=== PATIENT | male | born 2000 | race Caucasian/White ===

== ENCOUNTER 2020-12-17 14:19 | Inpatient (IN) | payer OTHER, SELFPAY ==
--- NOTE | ~2020-12-17 | CT_ITS ---
EXAMINATION: CT HEAD WITHOUT CONTRAST CLINICAL INFORMATION: Anxiety COMPARISON: None TECHNIQUE: Contiguous axial imaging was performed from the skull base to vertex without intravenous administration of contrast. This CT examination was performed using dose optimization techniques as appropriate, variously including the following: *Automated exposure control *Adjustment of mA and/or kV according to patient size (this includes techniques or standardized protocols for targeted exams where dose is matched to indication/reason for exam; i.e. extremities or head) *Use of iterative reconstruction technique DLP: 1035 mGy-cm FINDINGS: There is no evidence of acute intracranial hemorrhage or territorial infarction. No abnormal mass effect or midline shift is seen. Roberts to white matter differentiation is well preserved. No extra-axial fluid collections are identified. The ventricles are normal in size. There is no abnormal attenuation within the brain parenchyma. The osseous structures and soft tissues are normal. There is mucosal thickening seen within the right sphenoid sinus and ethmoid sinuses. CT/CT head/brain wo con IMPRESSION: No acute intracranial pathology. Sphenoid and ethmoid sinus disease.
[2020-12-17 14:21] VITALS: BP 138/83; PULSE 85; RESP 16; TEMP 36.6; O2SAT 95; BMI 22.8
--- NOTE | 2020-12-17 14:33 | ED_ITS ---
HPI - Anxiety General Chief Complaint: Anxiety Stated Complaint: anxiety Time Seen by Provider: 12/17/20 14:31 Source: patient Mode of arrival: ambulatory Limitations: no limitations History of Present Illness MD complaint: anxiety Onset (ago): week(s) (2) Symptoms: other (racing thoughts, can't sleep, I'm good. I'm good. I just need a job and my family. ) Severity: severe Quality: worsening Place: home History of similar episodes: No Provoking factors: emotional stress and work/job stress Relieving factors: nothing Exacerbating factors: thinking about event Associated symptoms: other (states he thinks about everything and can't stop, but he's okay, no SI) Related Data Allergies Allergy/AdvReac Type Severity Reaction Status Date / Time No Known Allergies Allergy Unverified 01/09/20 17:01 Review of Systems Review of Systems: Constitutional : No Fever, No Chills ENT/Mouth : No Ear Pain, No Nasal Congestion, No sore throat Eyes: No Eye Pain, No Swelling, No Redness Cardiovascular : No Chest Pain, No SOB Respiratory : No Cough, No Sputum, No Dyspnea Gastrointestinal : No Nausea, No Vomiting, No Diarrhea, No Hematochezia, No Melena Genitourinary : No Dysuria, No Urinary Frequency, No Hematuria Musculoskeletal : No Myalgias Skin : No Skin Lesions, No rash Neuro : No Weakness, No Numbness, No Paresthesias, No Dizziness, No Headache Psych : positive Anxiety, no Depression, no SI/HI, no AH/VH Heme/Lymph: No Lymphadenopathy Endocrine : No Polyuria, No Polydipsia All other systems reviewed and are negative [facility] Past Medical History Attestation statement: The following information was validated with the patient. Medical History Anxiety Social History Social History (Updated 12/17/20 @ 14:48 by Amairani Thompson DO) Patient Tobacco Use Status: Never used Tobacco Use of substances other than those prescribed or required for medical reasons: No Advance Directives: No Advance Directives Information Provided: No Physical Exam Vital Signs: Vital Signs: Last Vital Signs Temp 97.8 F 12/17/20 14:21 Pulse 85 12/17/20 14:21 Resp 16 12/17/20 14:21 BP 138/83 12/17/20 14:21 Pulse Ox 95 12/17/20 14:21 Body Mass Index 22.8 Appearance: Alert. Oriented X3. Very anxious, mild acute distress, being somewhat held and hugged in place by mom so he doesn't pace around. Eyes: Pupils equal, round and reactive to light. ENT: Pharynx normal. Neck: Normal inspection. Neck supple. CVS: Normal heart rate and rhythm. Pulses normal. Respiratory: No respiratory distress. Breath sounds normal. Abdomen: Soft and non-tender. Skin: Skin warm and dry. Normal skin color. Normal skin turgor. Extremities: No lower extremity edema. No calf ttp Neuro: Oriented X 3. No motor deficit. No sensory deficit. CN2-12 intact Psych: pos anxiety, no SI/HI, hyperverbal, pacing, rapid speech rapid thoughts Course Course Course Narrative: signed out pending N consult now states that he tested positive for COVID a week ago initially he stated it was a while ago and he planned to get a COVID vaccine on the . no hypoxia, no respiratory complaints, afebrile, no meningitis type complaints MDM - Anxiety MDM Narrative Medical decision making narrative: 20 yo male with hx of anxiety but no treatments comes in with worsening anxiety, not sleeping, he is hyperverbal and pacing I think he is possibly having intrusive as well I am not sure what's going on. labs, PO ativan, BHN consult, he does not have SI or HI - I do not feel I can section him at this time. Lab Data Result diagrams: 12/17/20 15:06 12/17/20 15:06 Labs: Lab Results 12/17/20 12/17/20 12/17/20 Range/Units 15:06 15:06 15:06 WBC 5.1 (4.8-10.8) X10*3/uL RBC 4.89 (4.60-5.80) X10*6/uL Hgb 14.3 (14.0-18.0) g/dl Hct 43.0 (42-52) % MCV 87.9 (80-98) fL MCH 29.2 (27.0-33.0) pg MCHC 33.3 (31.0-36.0) g/dl RDW 13.2 (11.0-16.0) % Plt Count 269 (160-400) X10*3/uL MPV 10.2 (9.4-12.4) fL Immature Gran % (Auto) 0.2 (0.0-0.4) % Neut % (Auto) 60.1 (45-73) % Lymph % (Auto) 29.8 (20-40) % [place] % (Auto) 9.1 (2-11) % Eos % (Auto) 0.4 (0-4) % Baso % (Auto) 0.4 (0-2) % Lymph # (Auto) 1.5 (1.2-4.9) X10*3/uL [place] # (Auto) 0.5 (0.1-1.2) X10*3/uL Eos # (Auto) 0.0 (0.0-0.4) X10*3/uL Baso # (Auto) 0.0 (0.0-0.2) X10*3/uL Abs Immat Gran (auto) 0.01 (0.00-0.03) X10*3/uL Absolute Neuts (auto) 3.1 (2.0-8.3) X10*3/uL Absolute Nucleated RBC 0.000 (0.0-0.012) X10*3/uL Nucleated RBC % (auto) 0.0 (0.0-0.2) /100WBC Sodium 139 (135-145) mmol/L Potassium 4.3 (3.3-5.1) mmol/L Chloride 106 (96-108) mmol/L Carbon Dioxide 26 (22-29) mmol/L Anion Gap 11 L (12-20) BUN 11 (9-16) mg/dL Creatinine 1.14 (0.5-1.4) mg/dL Estim Creat Clear Calc 99.4 Estimated GFR > 60 Random Glucose 108 (60-115) mg/dL Calcium 9.7 (8.4-10.2) mg/dL Total Bilirubin 1.3 H (0.0-1.0) mg/dL Direct Bilirubin 0.5 (0.0-0.5) mg/dL AST 38 H (5-37) U/L ALT 46 H (0-40) U/L Alkaline Phosphatase 80 (39-117) U/L Total Protein 8.2 H (6.5-8.0) g/dL Albumin 4.5 (3.5-5.0) g/dL Urine Opiates Screen (Not Detect) Urine Fentanyl Screen (Not Detect) Ur Barbiturates Screen (Not Detect) Ur Phencyclidine Scrn (Not Detect) Ur Amphetamines Screen (Not Detect) U Benzodiazepines Scrn (Not Detect) Urine Cocaine Screen (Not Detect) U Marijuana (THC) Screen (Not Detect) Ethyl Alcohol mg/dL COVID-19 (RUTHY) Positive A (Negative) COVID-19 Clin Com See Note 12/17/20 12/17/20 Range/Units 15:06 15:08 WBC (4.8-10.8) X10*3/uL RBC (4.60-5.80) X10*6/uL Hgb (14.0-18.0) g/dl Hct (42-52) % MCV (80-98) fL MCH (27.0-33.0) pg MCHC (31.0-36.0) g/dl RDW (11.0-16.0) % Plt Count (160-400) X10*3/uL MPV (9.4-12.4) fL Immature Gran % (Auto) (0.0-0.4) % Neut % (Auto) (45-73) % Lymph % (Auto) (20-40) % [place] % (Auto) (2-11) % Eos % (Auto) (0-4) % Baso % (Auto) (0-2) % Lymph # (Auto) (1.2-4.9) X10*3/uL [place] # (Auto) (0.1-1.2) X10*3/uL Eos # (Auto) (0.0-0.4) X10*3/uL Baso # (Auto) (0.0-0.2) X10*3/uL Abs Immat Gran (auto) (0.00-0.03) X10*3/uL Absolute Neuts (auto) (2.0-8.3) X10*3/uL Absolute Nucleated RBC (0.0-0.012) X10*3/uL Nucleated RBC % (auto) (0.0-0.2) /100WBC Sodium (135-145) mmol/L Potassium (3.3-5.1) mmol/L Chloride (96-108) mmol/L Carbon Dioxide (22-29) mmol/L Anion Gap (12-20) BUN (9-16) mg/dL Creatinine (0.5-1.4) mg/dL Estim Creat Clear Calc Estimated GFR Random Glucose (60-115) mg/dL Calcium (8.4-10.2) mg/dL Total Bilirubin (0.0-1.0) mg/dL Direct Bilirubin (0.0-0.5) mg/dL AST (5-37) U/L ALT (0-40) U/L Alkaline Phosphatase (39-117) U/L Total Protein (6.5-8.0) g/dL Albumin (3.5-5.0) g/dL Urine Opiates Screen Not Detected (Not Detect) Urine Fentanyl Screen Not Detected (Not Detect) Ur Barbiturates Screen Not Detected (Not Detect) Ur Phencyclidine Scrn Not Detected (Not Detect) Ur Amphetamines Screen Not Detected (Not Detect) U Benzodiazepines Scrn Not Detected (Not Detect) Urine Cocaine Screen Not Detected (Not Detect) U Marijuana (THC) Screen Not Detected (Not Detect) Ethyl Alcohol < 10 mg/dL COVID-19 (RUTHY) (Negative) COVID-19 Clin Com Discharge Plan Discharge Clinical Impression: Acute anxiety, COVID-19
[2020-12-17] MEDS: LORazepam 1 MG TABLET PO (15:03)
[2020-12-17 15:13] LABS: MANUAL DIFF FLAG NO
[2020-12-17 15:15] LABS: Basophils Percent Auto 0.4 % (0-2); Eosinophils Percent Auto 0.4 % (0-4); Hemoglobin 14.3 g/dl (14.0-18.0); Imm Gran Abs Auto 0.01 X10*3/uL (0.00-0.03); Imm Gran Pct Auto 0.2 % (0.0-0.4); Lymphocytes Absolute Auto 1.5 X10*3/uL (1.2-4.9); Lymphocytes Percent Auto 29.8 % (20-40); Mean Corpuscular HGB Conc 33.3 g/dl (31.0-36.0); Mean Corpuscular Hemoglobin 29.2 pg (27.0-33.0); Mean Corpuscular Volume 87.9 fL (80-98); Mean Platelet Volume 10.2 fL (9.4-12.4); Monocytes Absolute Auto 0.5 X10*3/uL (0.1-1.2); Monocytes Percent Auto 9.1 % (2-11); Neutrophils Absolute Auto 3.1 X10*3/uL (2.0-8.3); Neutrophils Percent Auto 60.1 % (45-73); Platelet Count 269 X10*3/uL (160-400); Red Blood Count 4.89 X10*6/uL (4.60-5.80); Red Cell Distribution Width 13.2 % (11.0-16.0); White Blood Count 5.1 X10*3/uL (4.8-10.8)
[2020-12-17 15:29] LABS: COVID-19 Test Positive (Negative)
[2020-12-17 15:33] LABS: Ethanol < 10 mg/dL
[2020-12-17 15:35] LABS: Alanine Aminotransferase 46 U/L (0-40); Albumin Level 4.5 g/dL (3.5-5.0); Alkaline Phosphatase 80 U/L (39-117); Anion Gap 11 (12-20); Aspartate Amino Transferase 38 U/L (5-37); Bilirubin Direct 0.5 mg/dL (0.0-0.5); Bilirubin Total 1.3 mg/dL (0.0-1.0); Blood Urea Nitrogen 11 mg/dL (9-16); Calcium 9.7 mg/dL (8.4-10.2); Carbon Dioxide 26 mmol/L (22-29); Chloride 106 mmol/L (96-108); Creatinine Clr Calc Pharmacy 99.4; Estimated Glomerular Filt Rate > 60; Glucose Random 108 mg/dL (60-115); Potassium 4.3 mmol/L (3.3-5.1); Sodium 139 mmol/L (135-145); Total Protein 8.2 g/dL (6.5-8.0)
[2020-12-17 15:35] LABS: Amphetamine Screen Urine Not Detected (Not Detect); Barbiturates, Urine Not Detected (Not Detect); Benzodiazepines Screen Urine Not Detected (Not Detect); Cannabinoid Screen Urine Not Detected (Not Detect); Cocaine Screen Urine Not Detected (Not Detect); Fentanyl, urine Not Detected (Not Detect); Opiate Screen Urine Not Detected (Not Detect); Phencyclidine Screen Urine Not Detected (Not Detect)
--- NOTE | 2020-12-17 15:52 | PC.NURSE ---
Care team approached this RN stating that given his age, he would require BHN consult rather than Care team eval. This RN sent over online referral to N regarding evaluation. Provider made aware. Patient moved to covid/isolation room with 1:1 sitter.
[2020-12-17 15:55] LABS: TSH reflex Free T4 1.12 uIU/mL (0.32-4.0)
[2020-12-17 15:57] VITALS: BP 140/70; PULSE 70; TEMP 36.6; O2SAT 98
--- NOTE | 2020-12-17 15:58 | PC.NURSE ---
This Rn encountered patient on 19H, resting quietly with Mom. 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 Looks to Mom for reassurance on minor things. Was able to answer questions about SI and denies it but states that he's been alone with his thoughts Pt is slightly unsteady on feet but able to ambulate. Required minimal assistance to change into BH clothing. Was calm and cooperative during changeover. Mom has left to quarantine at home. Mom wants updates via phone [phone]
[2020-12-17 17:34] VITALS: BP 107/60; PULSE 75; RESP 16; O2SAT 96
--- NOTE | 2020-12-17 17:55 | PC.NURSE ---
patient ate 100% of his dinner, has no complaints at this time, is visualized ambulating around room but allows tech to obtain vital signs without difficulty. patient awaiting BHN consult.
--- NOTE | 2020-12-17 19:04 | PC.NURSE ---
This RN spoke to Bakari at [facility] who states clinician should be there within a few hours.
[2020-12-17 19:24] VITALS: BP 135/86; PULSE 87; RESP 17; TEMP 37.2; O2SAT 97
--- NOTE | 2020-12-17 19:25 | PC.NURSE ---
This rn to bedside, pt sitting on stretcher in NAD, breathing with ease on RA. Pt tearful, aaox4 with directed communication but in conversation pt's line of thought appears to be tangential. Pt reports fear of being perceived as crazy. Pt reports I don't want to end up being in a crazy hospital and I feel like that's what's going to happen. Pt states I felt today that it was a clean slate and I could be happy but then my family was looking at me concerned because my head is hot and I'm overthinking. Pt states I was playing single player video games and felt like I was multiple people and that's what caused this to happen. It was the shooting video games. Pt denies SI/HI. Pt repeatedly apologizing for his behavior. This RN and sitter at bedside ensure pt he does not need to apologize. Pt stretcher in low locked position, rails raised, call kerr within reach. Sitter remains at bedside. Pt awaiting N consult. This rn confirmed with Dr Reynolds that pt is not section 12 at this time.
--- NOTE | 2020-12-17 20:46 | PC.NURSE ---
This RN to bedside. Pt reports feeling calmer now as compared to this RN's initial meeting of pt. Pt states the TV is helping me, it's telling me very important messages right now. This RN had provided pt with crayons and coloring books and blank papers. Pt reports this is helpful, thanks. Pt's mother, Gillian, called for update. This RN informed pt's mother that pt continues to await [facility] evaluation.
--- NOTE | 2020-12-17 20:57 | PC.NURSE ---
Pt informs this RN that he takes OTC vitamins because he likes to be healthy and because I like them but denies RX meds. Pt's mother confirms this.
--- NOTE | 2020-12-17 20:58 | PC.NURSE ---
Pt's mother, Gillian, phone [phone]
--- NOTE | 2020-12-17 21:43 | PC.NURSE ---
This RN spoke to Kristin at [facility] who states we are looking at the overnight, probably after 11pm for ETA
[2020-12-17 22:19] VITALS: BP 145/87; PULSE 75; RESP 17; TEMP 37; O2SAT 100
[2020-12-17 23:59] VITALS: BP 125/95; PULSE 79; RESP 17; O2SAT 99
--- NOTE | 2020-12-18 02:37 | MHC.CARE ---
FERNANDO Trinidad is here to assess pt. Contacting mother at this time. Will await disposition.
--- NOTE | 2020-12-18 03:08 | PC.NURSE ---
CHRISN to speak with pt at this time
[2020-12-18 04:06] VITALS: BP 146/88; PULSE 67; RESP 18; TEMP 37.1; O2SAT 98
[2020-12-18] MEDS: OLANZapine 5 MG TABLET PO (04:07)
[2020-12-18] MEDS: LORazepam 0.5 MG TABLET PO ×2 (04:07→15:07)
--- NOTE | 2020-12-18 04:18 | PC.NURSE ---
Pt requesting medication for anxiety. Dr Colindres made aware. This RN to bedside to medicate per MAR. Pt speaking between whispers and normal volume, saying I'm whispering because I'm scaring myself. I looked at myself and I will control my mind. I don't want to be a popper head. That's why I know what I am taking. Pt reassured that he is safe. Pt redirected to bed, covered with blankets per request. Sitter remains in place. Per Amos at [facility], pt is inpatient bed search on Section 12.
[2020-12-18 07:20] VITALS: BP 127/73; PULSE 79; RESP 16; O2SAT 96
[2020-12-18 11:38] VITALS: RESP 16
--- NOTE | 2020-12-18 14:10 | MHC.IC ---
Call placed to [facility], received call back from Oscar Gallegos who confirmed that the Patient tested positive for COVID on 12/03/20 at the [facility].
--- NOTE | 2020-12-18 14:19 | MHC.IC ---
Addendum: Oscar Gallegos is an City Routeman with the [facility].
--- NOTE | 2020-12-18 14:29 | PC.NURSE ---
Received confirmation from Elisabet Sanchez, salad maker that she verified with Oscar Gallegos, [employer] Dual Rate Supervisor, that Nikhil Mcconnell's initial positive COVID swab was collected 12/03/20 at the [facility]. Reviewed with Dr. Brayan Melton and Elisabet Sanchez and given pt asymptomatic and outside of quarantine period, may be [facility] without need for isolation. Pt should wear mask per patient standard.
--- NOTE | 2020-12-18 14:38 | PC.NURSE ---
MOTHER CALLED AND UPDATED THAT PATIENT WILL BE ADMITTED TO [facility] M[facility].
--- NOTE | 2020-12-18 15:15 | PC.NURSE ---
report taken from landon hancock pt finished shower, appears to have racing thought process, verbalizing to this rn. given ativan for anxiety. tolerating po w/o issue.
[2020-12-18 18:59] VITALS: BP 130/77; PULSE 62; RESP 17; TEMP 36.7; O2SAT 99
--- NOTE | 2020-12-18 19:00 | PC.ADMIT ---
PT admitted to M3 from [facility] on a conditional voluntary at 1820. Pt reports he is here for anxiety, states that he had a panic attack and was afraid of himself. Pt denies SI/HI/AVH. Pt states he was afraid of himself but never had thoughts of harming himself. PT had a recent break-up and has had poor sleep for the past 2 weeks. PT tested positive for Covid around this time, has been asymptomatic. Pt is hyperverbal with rapid speech, poor insight and poor impulse control. PT tox screen was negative. 15 minute checks initiated.
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
[2020-12-18] MEDS: OLANZapine 10 MG TABLET PO (20:51)
[2020-12-18 21:58] VITALS: BP 135/96; PULSE 73; TEMP 36.8
[2020-12-19] MEDS: hydrOXYzine HCL 25 MG TABLET PO (04:46)
[2020-12-19 06:00] VITALS: BP 132/68; PULSE 72; RESP 16; TEMP 36.9; O2SAT 98
[2020-12-19 07:27] LABS: Cholesterol 111 mg/dL; HDL Cholesterol 43 mg/dL; LDL Cholesterol Calculated 56 mg/dl; Magnesium 2.1 mg/dL (1.6-2.6); Triglycerides 61 mg/dL
[2020-12-19 07:49] LABS: Free T4 (Free Thyroxine) 1.38 ng/dL (0.71-1.85); Thyroid Stimulating Hormone 1.06 uIU/mL (0.32-4.0)
[2020-12-19 07:52] LABS: Estimated Average Glucose 97 mg/dL
--- NOTE | 2020-12-19 17:04 | HO.PSYCHPN ---
Subjective Subjective Date of Service: 12/19/20 Reason For Visit: anxiety Subjective Notes: Conditional Voluntary Guardianship: No Interim History: Patient with racing thoughts agitation flight of ideas emotional dysregulation Medication Compliance: Intermittent Mental Status Exam Mental Status Exam Narrative: A&O. In hospital gown, thin body habitus, good hygiene, glasses. Intermittent eye contact, inattentive. No Tics or Tremors. No abnormal involuntary movements. Agitated, labile, difficult to engage in meaningful conversation. At times pressured speech, spontaneous, has paucity of speech, abnormal prosody, no dysarthria. Mood is scared,? affect is labile. Denies SI/SIB/HI upon inquiry. Endorses AH, denies VH. Endorses delusional thought content, ideations of reference, depersonalization. Thoughts are illogical, tangential, disorganized. No known cognitive or memory impairment but appears to be having impaired processing. Insight/ Judgment limited labile . Diagnostics Vital Signs (24Hr): Vital Signs - 24 hr 12/18/20 18:59 12/18/20 21:58 12/19/20 06:00 Temperature 98.0 F 98.3 F 98.4 F Pulse Rate 62 73 72 Respiratory Rate 17 16 Blood Pressure 130/77 135/96 H 132/68 Pulse Oximetry 99 98 Body Mass Index 22.8 Labs Results: 12/17/20 15:06 12/17/20 15:06 Labs: Laboratory Results - last 48 hr 12/19/20 12/19/20 06:46 06:46 Estimat Average Glucose 97 Hemoglobin A1c % 5.0 Magnesium 2.1 Triglycerides 61 Cholesterol 111 LDL Cholesterol, Calc 56 HDL Cholesterol 43 TSH 1.06 Free T4 1.38 Imaging Radiology Impressions: ITS Impressions Head CT 12/17/20 15:50 IMPRESSION: No acute intracranial pathology. Sphenoid and ethmoid sinus disease. Medications Medications Current Medications Generic Name Dose Route Start Last Admin Trade Name Freq PRN Reason Stop Dose Admin Acetaminophen 650 mg 12/18/20 17:27 Acetaminophen 325 Mg Tablet PO Q6H PRN Headache/Pain Mild Scale (1-3) Al Hydroxide/Mg Hydroxide 30 ml 12/18/20 17:27 Magnesium Hydrox/Alum Hydrox 30 Ml Oral.Susp PO Q6H PRN Heartburn/Nausea Hydroxyzine HCl 25 mg 12/18/20 17:27 12/19/20 04:46 Hydroxyzine Hcl 25 Mg Tablet PO 25 mg BEDTIME PRN Administration Anxiety Lorazepam 1 mg 12/18/20 17:34 Lorazepam 1 Mg Tablet PO Q4H PRN Anxiety Magnesium Hydroxide 30 ml 12/18/20 17:27 Milk Of Magnesia 30 Ml Oral.Susp PO DAILY PRN Constipation Olanzapine 10 mg 12/18/20 21:00 12/18/20 20:51 Olanzapine 10 Mg Tablet PO 10 mg BEDTIME BARNEY Administration Trazodone HCl 50 mg 12/18/20 17:27 Trazodone Hcl 50 Mg Tablet PO BEDTIME PRN Insomnia Allergies Allergies Allergy/AdvReac Type Severity Reaction Status Date / Time No Known Allergies Allergy Verified 12/17/20 19:16 Assessment & Plan Assessment & Plan (1) Psychosis: Status: Acute Code(s): F29 - Unspecified psychosis not due to a substance or known physiological condition (2) Anxiety disorder, unspecified: Status: Acute Code(s): F41.9 - Anxiety disorder, unspecified Assessment and Plan: Probable manic psychosis question post COVID syndrome Plan: 1. start olanzapine 10 mg QHS to target sx of psychosis. He took 5 mg in the ED and reported positive effect, denied adverse events. 2. continue ativan 1 mg Q4H PRN for anxiety, panic sx. This was started in the ED with good effect. 3. Monitor response to medications. Monitor for safety in the milieu. Olanzapine 5 b.i.d. p.r.n. added patient appears to be floridly manic denies any history of psychosis or mood lability Greater than 50% of the session was spent on counseling and/or coordination of care Reason for contiued inpatient stay Substantial Risk for: harm to self, inability to function and rapid decompensation
[2020-12-19] MEDS: LORazepam 1 MG TABLET PO ×2 (17:31→21:56)
[2020-12-19] MEDS: OLANZapine 5 MG TABLET PO (17:45)
[2020-12-19 21:17] VITALS: BP 136/73; PULSE 108; RESP 16; TEMP 36.6; O2SAT 96
[2020-12-19] MEDS: OLANZapine 10 MG TABLET PO (21:22)
[2020-12-20 06:00] VITALS: BP 153/85; PULSE 100; RESP 16; TEMP 36.6; O2SAT 100
[2020-12-20] MEDS: OLANZapine 5 MG TABLET PO (08:42)
[2020-12-20] MEDS: LORazepam 1 MG TABLET PO (08:42)
[2020-12-20] MEDS: OLANZapine 10 MG TABLET PO (20:22)
[2020-12-20 20:24] VITALS: BP 157/90; PULSE 88; TEMP 37; O2SAT 96
--- NOTE | 2020-12-20 23:05 | HO.PSYCHPN ---
Subjective Subjective Date of Service: 12/20/20 Reason For Visit: anxiety Subjective Notes: Conditional Voluntary Interim History: pt euphoric grandiose racing thoughts speech agitated limited ability to take in info no reported hx of siri Medication Compliance: Yes Attending Groups: Intermittent Mental Status Exam Mental Status Exam Narrative: pt physically agitated pacing yelling racing thoughts grandiose I can do it all on my own paranoid ideation no si Diagnostics Vital Signs (24Hr): Vital Signs - 24 hr 12/20/20 06:00 12/20/20 20:24 Temperature 97.9 F 98.6 F Pulse Rate 100 88 Respiratory Rate 16 Blood Pressure 153/85 H 157/90 H Pulse Oximetry 100 96 Body Mass Index 22.8 Labs Results: 12/17/20 15:06 12/17/20 15:06 Labs: Laboratory Results - last 48 hr 12/19/20 12/19/20 06:46 06:46 Estimat Average Glucose 97 Hemoglobin A1c % 5.0 Magnesium 2.1 Triglycerides 61 Cholesterol 111 LDL Cholesterol, Calc 56 HDL Cholesterol 43 TSH 1.06 Free T4 1.38 Imaging Radiology Impressions: ITS Impressions Head CT 12/17/20 15:50 IMPRESSION: No acute intracranial pathology. Sphenoid and ethmoid sinus disease. Medications Medications Current Medications Generic Name Dose Route Start Last Admin Trade Name Freq PRN Reason Stop Dose Admin Acetaminophen 650 mg 12/18/20 17:27 Acetaminophen 325 Mg Tablet PO Q6H PRN Headache/Pain Mild Scale (1-3) Al Hydroxide/Mg Hydroxide 30 ml 12/18/20 17:27 Magnesium Hydrox/Alum Hydrox 30 Ml Oral.Susp PO Q6H PRN Heartburn/Nausea Hydroxyzine HCl 25 mg 12/18/20 17:27 12/19/20 04:46 Hydroxyzine Hcl 25 Mg Tablet PO 25 mg BEDTIME PRN Administration Anxiety Lorazepam 1 mg 12/18/20 17:34 12/20/20 08:42 Lorazepam 1 Mg Tablet PO 1 mg Q4H PRN Administration Anxiety Magnesium Hydroxide 30 ml 12/18/20 17:27 Milk Of Magnesia 30 Ml Oral.Susp PO DAILY PRN Constipation Olanzapine 10 mg 12/18/20 21:00 12/20/20 20:22 Olanzapine 10 Mg Tablet PO 10 mg BEDTIME BARNEY Administration Olanzapine 5 mg 12/19/20 17:38 12/20/20 08:42 Olanzapine 5 Mg Tablet PO 5 mg BID PRN Administration Psychosis Trazodone HCl 50 mg 12/18/20 17:27 Trazodone Hcl 50 Mg Tablet PO BEDTIME PRN Insomnia Allergies Allergies Allergy/AdvReac Type Severity Reaction Status Date / Time No Known Allergies Allergy Verified 12/17/20 19:16 Assessment & Plan Assessment & Plan (1) Psychosis: Status: Acute Code(s): F29 - Unspecified psychosis not due to a substance or known physiological condition (2) Anxiety disorder, unspecified: Status: Acute Code(s): F41.9 - Anxiety disorder, unspecified Assessment and Plan: Probable manic psychosis question post COVID syndrome Plan: 1. start olanzapine 10 mg QHS to target sx of psychosis. He took 5 mg in the ED and reported positive effect, denied adverse events. 2. continue ativan 1 mg Q4H PRN for anxiety, panic sx. This was started in the ED with good effect. 3. Monitor response to medications. Monitor for safety in the milieu. Olanzapine 5 b.i.d. p.r.n. added patient appears to be floridly manic denies any history of psychosis or mood lability given education regardingf bipolar dx Greater than 50% of the session was spent on counseling and/or coordination of care Reason for contiued inpatient stay Substantial Risk for: inability to function and rapid decompensation
[2020-12-21] MEDS: LORazepam 1 MG TABLET PO ×2 (01:27→20:22)
[2020-12-21 08:30] LABS: Folate 14.9 ng/mL (> or = 4.0); Vitamin B12 502 pg/mL (200-900)
[2020-12-21 08:32] VITALS: BP 157/115; PULSE 73; RESP 17; TEMP 36.8; O2SAT 99
--- NOTE | 2020-12-21 13:59 | P.PNPSI_ITS ---
Subjective Subjective Date of Service: 12/22/20 Reason For Visit: anxiety Subjective Notes: 3 Day Interim History: Pt with expansive mood. He reports he was confused but now understands purpose of life. He reports hearing or sensing messages from God. Pt presents with flight of ideas shifting to how he cares for GF because she is unable to, then wanting to live his life now that he has a purposed. Limited insight into psychiatric symptoms or need for psychiatric treatment. He does reporting agreeing to taking medications for now but hoping to go home soon. He denies SI/HI. Medication Compliance: Yes Side effects from medications: No Attending Groups: Intermittent Review of Systems Acute medical concerns: No Review of Systems Review of Systems -Denies hx of seizures -Denies hx of TBI/ concussion -Denies hx of cardiac issues Mental Status Exam Mental Status Exam Narrative: Appearance: casually groomed, fair hygiene in NAD Behavior: overly familiar psychomotor: psychomotor hyperactivity Speech:mostly clear, pressured and hyper verbal, spontaneous Thought process:flight of ideas Thought content:latter-day preoccupation Mood: fine Affect: expansive SI:none HI:none VH/AH:voices of God Delusions:latter-day delusions Insight/judgment:impaired x 2. Memory/cog: alert, oriented x 3. Diagnostics Vital Signs (24Hr): Vital Signs - 24 hr 12/21/20 20:20 12/22/20 08:40 Temperature 97.4 F 97.8 F Pulse Rate 90 114 H Respiratory Rate 16 Blood Pressure 145/95 H 150/92 H Pulse Oximetry 96 99 Body Mass Index 22.8 Labs Results: 12/17/20 15:06 12/17/20 15:06 Labs: Laboratory Results - last 48 hr 12/19/20 06:46 Vitamin B12 502 Folate 14.9 Imaging Radiology Impressions: ITS Impressions Head CT 12/17/20 15:50 IMPRESSION: No acute intracranial pathology. Sphenoid and ethmoid sinus disease. Medications Medications Current Medications Generic Name Dose Route Start Last Admin Trade Name Freq PRN Reason Stop Dose Admin Acetaminophen 650 mg 12/18/20 17:27 Acetaminophen 325 Mg Tablet PO Q6H PRN Headache/Pain Mild Scale (1-3) Al Hydroxide/Mg Hydroxide 30 ml 12/18/20 17:27 Magnesium Hydrox/Alum Hydrox 30 Ml Oral.Susp PO Q6H PRN Heartburn/Nausea Hydroxyzine HCl 25 mg 12/18/20 17:27 12/19/20 04:46 Hydroxyzine Hcl 25 Mg Tablet PO 25 mg BEDTIME PRN Administration Anxiety Lorazepam 1 mg 12/18/20 17:34 12/22/20 03:02 Lorazepam 1 Mg Tablet PO 1 mg Q4H PRN Administration Anxiety Magnesium Hydroxide 30 ml 12/18/20 17:27 Milk Of Magnesia 30 Ml Oral.Susp PO DAILY PRN Constipation Olanzapine 15 mg 12/22/20 21:00 Olanzapine 7.5 Mg Tablet PO BEDTIME BARNEY Olanzapine 5 mg 12/22/20 09:00 Olanzapine 5 Mg Tablet PO Q4H PRN Psychosis/agitation Trazodone HCl 50 mg 12/18/20 17:27 Trazodone Hcl 50 Mg Tablet PO BEDTIME PRN Insomnia Allergies Allergies Allergy/AdvReac Type Severity Reaction Status Date / Time No Known Allergies Allergy Verified 12/17/20 19:16 Assessment & Plan Assessment & Plan (1) Psychosis: Status: Acute Code(s): F29 - Unspecified psychosis not due to a substance or known physiological condition (2) Anxiety disorder, unspecified: Status: Acute Code(s): F41.9 - Anxiety disorder, unspecified Assessment and Plan: Probable manic psychosis question post COVID syndrome Plan: 1. Increase olanzapine 15 mg QHS to target sx of psychosis. 2. continue ativan 1 mg Q4H PRN for anxiety, panic sx. T 3. Monitor response to medications. Monitor for safety in the milieu. Olanzapine 5 q4hr p.r.n. Greater than 50% of the session was spent on counseling and/or coordination of care Reason for contiued inpatient stay Substantial Risk for: inability to function
[2020-12-21 20:20] VITALS: BP 145/95; PULSE 90; TEMP 36.3; O2SAT 96
[2020-12-21] MEDS: OLANZapine 10 MG TABLET PO (20:22)
[2020-12-22] MEDS: LORazepam 1 MG TABLET PO (03:02)
[2020-12-22 08:40] VITALS: BP 150/92; PULSE 114; RESP 16; TEMP 36.6; O2SAT 99
--- NOTE | 2020-12-22 14:04 | HO.PSYCHPN ---
Subjective Subjective Date of Service: 12/22/20 Reason For Visit: anxiety Interim History: Pt continues to present with expansive mood. He reports he was confused but now understands purpose of life. He continues to report hearing or sensing messages from God and feeling more spiritual . Pt presents with flight of ideas shifting to how he cares for GF because she is unable to, then wanting to live his life now that he has a purposed. He does report that medications helping with sleep. Limited insight into psychiatric symptoms or need for psychiatric treatment. He does reporting agreeing to taking medications for now but hoping to go home soon. He denies SI/HI. Medication Compliance: Yes Side effects from medications: No Attending Groups: No Review of Systems Acute medical concerns: No Review of Systems Review of Systems -Denies hx of seizures -Denies hx of TBI/ concussion -Denies hx of cardiac issues Mental Status Exam Mental Status Exam Narrative: Appearance: casually groomed, fair hygiene in NAD Behavior: overly familiar psychomotor: psychomotor hyperactivity Speech:mostly clear, pressured and hyper verbal, spontaneous Thought process:flight of ideas Thought content:pentecostal preoccupation Mood: fine Affect: expansive SI:none HI:none VH/AH:voices of God Delusions:pentecostal delusions Insight/judgment:impaired x 2. Memory/cog: alert, oriented x 3. Diagnostics Vital Signs (24Hr): Vital Signs - 24 hr 12/21/20 20:20 12/22/20 08:40 Temperature 97.4 F 97.8 F Pulse Rate 90 114 H Respiratory Rate 16 Blood Pressure 145/95 H 150/92 H Pulse Oximetry 96 99 Body Mass Index 22.8 Labs Results: 12/17/20 15:06 12/17/20 15:06 Labs: Laboratory Results - last 48 hr 12/19/20 06:46 Vitamin B12 502 Folate 14.9 Imaging Radiology Impressions: ITS Impressions Head CT 12/17/20 15:50 IMPRESSION: No acute intracranial pathology. Sphenoid and ethmoid sinus disease. Medications Medications Current Medications Generic Name Dose Route Start Last Admin Trade Name Freq PRN Reason Stop Dose Admin Acetaminophen 650 mg 12/18/20 17:27 Acetaminophen 325 Mg Tablet PO Q6H PRN Headache/Pain Mild Scale (1-3) Al Hydroxide/Mg Hydroxide 30 ml 12/18/20 17:27 Magnesium Hydrox/Alum Hydrox 30 Ml Oral.Susp PO Q6H PRN Heartburn/Nausea Hydroxyzine HCl 25 mg 12/18/20 17:27 12/19/20 04:46 Hydroxyzine Hcl 25 Mg Tablet PO 25 mg BEDTIME PRN Administration Anxiety Lorazepam 1 mg 12/18/20 17:34 12/22/20 03:02 Lorazepam 1 Mg Tablet PO 1 mg Q4H PRN Administration Anxiety Magnesium Hydroxide 30 ml 12/18/20 17:27 Milk Of Magnesia 30 Ml Oral.Susp PO DAILY PRN Constipation Olanzapine 15 mg 12/22/20 21:00 Olanzapine 7.5 Mg Tablet PO BEDTIME BARNEY Olanzapine 5 mg 12/22/20 09:00 Olanzapine 5 Mg Tablet PO Q4H PRN Psychosis/agitation Trazodone HCl 50 mg 12/18/20 17:27 Trazodone Hcl 50 Mg Tablet PO BEDTIME PRN Insomnia Allergies Allergies Allergy/AdvReac Type Severity Reaction Status Date / Time No Known Allergies Allergy Verified 12/17/20 19:16 Assessment & Plan Assessment & Plan (1) Psychosis: Status: Acute Code(s): F29 - Unspecified psychosis not due to a substance or known physiological condition (2) Anxiety disorder, unspecified: Status: Acute Code(s): F41.9 - Anxiety disorder, unspecified Assessment and Plan: Probable manic psychosis question post COVID syndrome Plan: 1. Increase olanzapine 15 mg QHS to target sx of psychosis. 2. continue ativan 1 mg Q4H PRN for anxiety, panic sx. T 3. Monitor response to medications. Monitor for safety in the milieu. Olanzapine 5 q4hr p.r.n. Greater than 50% of the session was spent on counseling and/or coordination of care Reason for contiued inpatient stay Substantial Risk for: inability to function
[2020-12-22] MEDS: OLANZapine 7.5 MG TABLET 15 MG PO (20:10)
[2020-12-22 20:30] VITALS: BP 119/75; PULSE 92; RESP 18; TEMP 37; O2SAT 98
[2020-12-23] MEDS: LORazepam 1 MG TABLET PO (02:32)
[2020-12-23 06:00] VITALS: BP 115/72; PULSE 83; RESP 16; TEMP 36.7; O2SAT 100
--- NOTE | 2020-12-23 13:55 | P.PNPSI_ITS ---
Subjective Subjective Date of Service: 12/23/20 Reason For Visit: anxiety Subjective Notes: 3 Day Interim History: Pt continues to present with expansive mood, slightly calmer, able to have somewhat coherent conversation. He reports he was confused but now understands purpose of life. He denies VH/AH. Pt presents with less flight of ideas. Thinks that medication mostly helping with sleep, does not have concern about hyper religiosity which he admits is new. He does report that medications helping with sleep. Limited insight into psychiatric symptoms or need for psychiatric treatment. He does reporting agreeing to taking medications for now but hoping to go home soon. He denies SI/HI. Review of Systems Review of Systems -Denies hx of seizures -Denies hx of TBI/ concussion -Denies hx of cardiac issues Mental Status Exam Mental Status Exam Narrative: Appearance: casually groomed, fair hygiene in NAD Behavior: overly familiar psychomotor: psychomotor hyperactivity Speech:mostly clear, pressured and hyper verbal, spontaneous Thought process:flight of ideas Thought content:christian preoccupation Mood: fine Affect: expansive SI:none HI:none VH/AH:voices of God Delusions:christian delusions Insight/judgment:impaired x 2. Memory/cog: alert, oriented x 3. Diagnostics Vital Signs (24Hr): Vital Signs - 24 hr 12/22/20 20:30 12/23/20 06:00 Temperature 98.6 F 98.0 F Pulse Rate 92 83 Respiratory Rate 18 16 Blood Pressure 119/75 115/72 Pulse Oximetry 98 100 Body Mass Index 22.8 Labs Results: 12/17/20 15:06 12/17/20 15:06 Imaging Radiology Impressions: ITS Impressions Head CT 12/17/20 15:50 IMPRESSION: No acute intracranial pathology. Sphenoid and ethmoid sinus disease. Medications Medications Current Medications Generic Name Dose Route Start Last Admin Trade Name Freq PRN Reason Stop Dose Admin Acetaminophen 650 mg 12/18/20 17:27 Acetaminophen 325 Mg Tablet PO Q6H PRN Headache/Pain Mild Scale (1-3) Al Hydroxide/Mg Hydroxide 30 ml 12/18/20 17:27 Magnesium Hydrox/Alum Hydrox 30 Ml Oral.Susp PO Q6H PRN Heartburn/Nausea Hydroxyzine HCl 25 mg 12/18/20 17:27 12/19/20 04:46 Hydroxyzine Hcl 25 Mg Tablet PO 25 mg BEDTIME PRN Administration Anxiety Lorazepam 1 mg 12/18/20 17:34 12/23/20 02:32 Lorazepam 1 Mg Tablet PO 1 mg Q4H PRN Administration Anxiety Magnesium Hydroxide 30 ml 12/18/20 17:27 Milk Of Magnesia 30 Ml Oral.Susp PO DAILY PRN Constipation Olanzapine 15 mg 12/22/20 21:00 12/22/20 20:10 Olanzapine 7.5 Mg Tablet PO 15 mg BEDTIME BARNEY Administration Olanzapine 5 mg 12/22/20 09:00 Olanzapine 5 Mg Tablet PO Q4H PRN Psychosis/agitation Trazodone HCl 50 mg 12/18/20 17:27 Trazodone Hcl 50 Mg Tablet PO BEDTIME PRN Insomnia Allergies Allergies Allergy/AdvReac Type Severity Reaction Status Date / Time No Known Allergies Allergy Verified 12/17/20 19:16 Assessment & Plan Assessment & Plan (1) Psychosis: Status: Acute Code(s): F29 - Unspecified psychosis not due to a substance or known physiological condition (2) Anxiety disorder, unspecified: Status: Acute Code(s): F41.9 - Anxiety disorder, unspecified Assessment and Plan: Probable manic psychosis question post COVID syndrome Plan: 1. Increase olanzapine 20 mg QHS to target sx of psychosis. 2. continue ativan 1 mg Q4H PRN for anxiety, panic sx. T 3. Monitor response to medications. Monitor for safety in the milieu. Olanzapine 5 q4hr p.r.n. Greater than 50% of the session was spent on counseling and/or coordination of care Reason for contiued inpatient stay Substantial Risk for: inability to function
[2020-12-23 19:52] VITALS: BP 133/71; PULSE 61; RESP 16; TEMP 36.6; O2SAT 99
[2020-12-23] MEDS: OLANZapine 10 MG TABLET 20 MG PO (22:01)
[2020-12-24 08:06] VITALS: BP 130/64; PULSE 77; RESP 18; TEMP 36.8; O2SAT 98
--- NOTE | 2020-12-24 10:31 | P.DS_ITS ---
DS: Providers Provider Date of Service: 12/24/20 Date of admission: 12/18/20 17:27 Primary care physician: None Physician DS: Diagnosis Discharge Diagnosis (1) Psychosis: Status: Acute (2) Anxiety disorder, unspecified: Status: Acute DS: Medications Discharge Medications Home Medications: Previous Rx's Medication Instructions Recorded olanzapine 20 mg tablet 20 mg PO BEDTIME #30 tab 12/24/20 Mental Status Exam Mental Status Exam Narrative: Appearance: casually groomed, fair hygiene in NAD Behavior: overly familiar psychomotor: psychomotor hyperactivity Speech:mostly clear, less pressured, , spontaneous Thought process:more linear Thought content:some jehovah's witness preoccupation, future oriented as evidenced by statements related to looking forward to see family. Mood: fine Affect: less expansive SI:none HI:none VH/AH: denies Delusions:less jehovah's witness delusions Insight/judgment:improving x 2. Memory/cog: alert, oriented x 3. Data Data Completed and Pending Completed studies during hospitalization [Text1]: 12/17/20 12/17/20 12/17/20 15:06 15:06 15:06 WBC 5.1 RBC 4.89 Hgb 14.3 Hct 43.0 MCV 87.9 MCH 29.2 MCHC 33.3 RDW 13.2 Plt Count 269 MPV 10.2 Immature Gran % (Auto) 0.2 Neut % (Auto) 60.1 Lymph % (Auto) 29.8 [place] % (Auto) 9.1 Eos % (Auto) 0.4 Baso % (Auto) 0.4 Lymph # (Auto) 1.5 [place] # (Auto) 0.5 Eos # (Auto) 0.0 Baso # (Auto) 0.0 Abs Immat Gran (auto) 0.01 Absolute Neuts (auto) 3.1 Absolute Nucleated RBC 0.000 Nucleated RBC % (auto) 0.0 Sodium 139 Potassium 4.3 Chloride 106 Carbon Dioxide 26 Anion Gap 11 L BUN 11 Creatinine 1.14 Estim Creat Clear Calc 99.4 Estimated GFR > 60 Random Glucose 108 Estimat Average Glucose Hemoglobin A1c % Calcium 9.7 Magnesium Total Bilirubin 1.3 H Direct Bilirubin 0.5 AST 38 H ALT 46 H Alkaline Phosphatase 80 Total Protein 8.2 H Albumin 4.5 Triglycerides Cholesterol LDL Cholesterol, Calc HDL Cholesterol Vitamin B12 Folate TSH Free T4 Urine Opiates Screen Urine Fentanyl Screen Ur Barbiturates Screen Ur Phencyclidine Scrn Ur Amphetamines Screen U Benzodiazepines Scrn Urine Cocaine Screen U Marijuana (THC) Screen Ethyl Alcohol COVID-19 (RUTHY) Positive A COVID-19 Clin Com See Note 12/17/20 12/17/20 12/17/20 15:06 15:06 15:08 WBC RBC Hgb Hct MCV MCH MCHC RDW Plt Count MPV Immature Gran % (Auto) Neut % (Auto) Lymph % (Auto) [place] % (Auto) Eos % (Auto) Baso % (Auto) Lymph # (Auto) [place] # (Auto) Eos # (Auto) Baso # (Auto) Abs Immat Gran (auto) Absolute Neuts (auto) Absolute Nucleated RBC Nucleated RBC % (auto) Sodium Potassium Chloride Carbon Dioxide Anion Gap BUN Creatinine Estim Creat Clear Calc Estimated GFR Random Glucose Estimat Average Glucose Hemoglobin A1c % Calcium Magnesium Total Bilirubin Direct Bilirubin AST ALT Alkaline Phosphatase Total Protein Albumin Triglycerides Cholesterol LDL Cholesterol, Calc HDL Cholesterol Vitamin B12 Folate TSH 1.12 Free T4 Urine Opiates Screen Not Detected Urine Fentanyl Screen Not Detected Ur Barbiturates Screen Not Detected Ur Phencyclidine Scrn Not Detected Ur Amphetamines Screen Not Detected U Benzodiazepines Scrn Not Detected Urine Cocaine Screen Not Detected U Marijuana (THC) Screen Not Detected Ethyl Alcohol < 10 COVID-19 (URTHY) COVID-19 Clin Com 12/19/20 12/19/20 12/19/20 06:46 06:46 06:46 WBC RBC Hgb Hct MCV MCH MCHC RDW Plt Count MPV Immature Gran % (Auto) Neut % (Auto) Lymph % (Auto) [place] % (Auto) Eos % (Auto) Baso % (Auto) Lymph # (Auto) [place] # (Auto) Eos # (Auto) Baso # (Auto) Abs Immat Gran (auto) Absolute Neuts (auto) Absolute Nucleated RBC Nucleated RBC % (auto) Sodium Potassium Chloride Carbon Dioxide Anion Gap BUN Creatinine Estim Creat Clear Calc Estimated GFR Random Glucose Estimat Average Glucose 97 Hemoglobin A1c % 5.0 Calcium Magnesium 2.1 Total Bilirubin Direct Bilirubin AST ALT Alkaline Phosphatase Total Protein Albumin Triglycerides 61 Cholesterol 111 LDL Cholesterol, Calc 56 HDL Cholesterol 43 Vitamin B12 502 Folate 14.9 TSH 1.06 Free T4 1.38 Urine Opiates Screen Urine Fentanyl Screen Ur Barbiturates Screen Ur Phencyclidine Scrn Ur Amphetamines Screen U Benzodiazepines Scrn Urine Cocaine Screen U Marijuana (THC) Screen Ethyl Alcohol COVID-19 (RUTHY) COVID-19 Clin Com Imaging Diagnostic Imaging Impressions Head CT 12/17/20 15:50 IMPRESSION: No acute intracranial pathology. Sphenoid and ethmoid sinus disease. DS: Summary Hospital Course Hospital Course: HPI: Sam is a 20 y.o. with no previous documented psych hx. He self presented on 12/17/20 to [facility] ED with his bio mom due to anxiety, panic attacks, hyposomnia, racing thoughts, and mood swings. Per crisis assessment- Nikhil identified prec ipitating factors as testing positive for Covid 19 two weeks ago and his mom reported that he has had tremendous anxiety since then with sx of poor sleep, loss of appetite, can?t concentrate or ?function? due to panic attacks. Utox negative. Head CT showed no intracranial pathology.? HOSPITAL COURSE On the unit, Nikhil was admitted on CV and placed on 15 minutes checks for safety. Pt signed 3 day notice which on day of discharge. On the unit, Pt initially presented with expansive, labile mood. He reported initially feeling very anxious but later feeling as if he had found purpose of his life. He presented with hyper religiosity. He reported hearing God's voice at times. He had grandiose sense of self. He denied SI/HI. He had limited insight into changes in behavior or concerns others have about his overall disorganized behavior and impaired level of functioning. After discussing risks, benefits and alternative treatment options, Mr. Mcconnell agreed to start olanzapine for mood/psychosis/delusions. He tolerated this medication well, and it was titrated to 20mg po qhs. Gradually, pt showed improvement in sleep. He presented less hyperverbal, less flight of ideas, less expansive mood and less hyper religiosity. He show some insight as to need for medication mostly to help him sleep but less so when it referred to hyper jehovah's witness delusions. He denied suicidal or homicidal ideation. There were no incidences of disruptive behaviors nor use of restraints. Collateral information gathered from mother who reports pt appears calmer, less labile, but not completely back to baseline. Given that there were no imminent safety concerns and pt agreed to continue medications and psychiatric op treatment, pt was discharged after 3 day notice . Status at Discharge Cognitive/behavioral status at discharge: Pt presents as less labile, less expansive affect. He is able to have logical conversations despite residual symptoms of hyper religiosity. He is sleeping and eating well. No SI/HI. No signs of aggression towards self or others. Functional status at discharge: independent ambulation Overall status at discharge: patient is progressing back to baseline Time Spent with Patient Time attestation: Total time spent providing and/or coordinating discharge services: Discharge Plan Discharge Patient Disposition: Home, Self-Care Discharge Diagnosis: psychosis NOS, most likely Bipolar Disorder type 1 Referrals: Bessy Hannon (therapy intake) [Other] - 12/29/20 10:00 am (Telehealth appointment, therapist will call you) Ana María Joel (psychiatrist) [Other] - 01/20/21 10:00 am (Telehealth appointment - over Zoom) Ana María Joel (psychiatrist) [Other] - 02/17/21 9:00 am (Telehealth appointment - over Zoom) Physician,None [Primary Care Provider] - 1 Week Discharge Medications: New olanzapine 20 mg tablet 20 mg PO BEDTIME Qty: 30 RF: 0 Discharge Orders: Discharge Order (Routine); Ordered 12/24/20 Ordered By: Elena Castañeda Diet: regular diet Activity on Discharge: As tolerated Stand Alone Forms: Patient Portal Discharge page Care Plan Goals: 1. Maintain mood/ less jehovah's witness delusions 2. NO SI/HI Health Concerns: 1. Follow up with PCP Plan of Treatment: 1. Take medications as prescribed 2. Follow up with referrals 3. Go to nearest ED or call 911 in event of emergency. Assessment: Pt less labile, less anxious, less jehovah's witness/grandiose delusional content. No SI/HI.
== END 2020-12-24 13:20 | disposition home or self-care (01) | DRG 751 ==
LOC: HO.ED 12-18 14:41 → HO.PADLT16 12-18 17:32
PROVIDERS: Clinical Nurse Specialist Psychiatric/Mental Health, Adult; Emergency Medicine; Admitting Provider Psychiatry & Neurology Psychiatry; Emergency Provider Emergency Medicine; Visit Provider Social Worker
DX: F29 Unspecified psychosis not due to a substance or known physiological condition (principal); U07.1 COVID-19; F41.9 Anxiety disorder, unspecified; Z79.899 Other long term (current) drug therapy
CPT/HCPCS: 36415; 70450; 80048; 80061; 80076; 80307; 82077; 82607; 82746; 83036; 83735; 84439; 84443; 85025; 87635; 99285

== ENCOUNTER 2022-03-13 04:04 | Emergency (ER) | payer OTHER, SELFPAY ==
[2022-03-13 04:19] VITALS: BP 149/100; PULSE 68; RESP 18; TEMP 36.4; O2SAT 99; BMI 22.8
--- NOTE | 2022-03-13 04:34 | ED_ITS ---
HPI - General Adult General Chief complaint: General Medical Stated complaint: insomnia Time Seen by Provider: 03/13/22 04:25 Source: patient and family Mode of arrival: ambulatory Limitations: no limitations History of Present Illness HPI narrative: Patient comes to the emergency room complaining of difficulty sleeping. 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 Patient states that he has a very difficult time sleeping. Note, patient was seen here approximately 1 year ago in 2020. Patient has history of psychotic behavior secondary to hyposomnia. Patient states that he has not slept in 2 days. Related Data Previous Rx's Medication Instructions Recorded olanzapine 20 mg tablet 20 mg PO BEDTIME #30 tabs 12/24/20 olanzapine 20 mg tablet 20 mg PO BEDTIME #30 tabs 01/22/21 melatonin 10 mg capsule 10 mg PO BEDTIME PRN sleep #30 caps 03/13/22 olanzapine 20 mg tablet 20 mg PO BEDTIME PRN insomnia #14 03/13/22 tabs Allergies Allergy/AdvReac Type Severity Reaction Status Date / Time No Known Allergies Allergy Verified 12/17/20 19:16 Review of Systems Review of Systems: Constitutional : No Weight loss, No Fever, No Chills, No Night Sweats, No Fatigue, No Malaise ENT/Mouth : No Hearing loss, No Ear Pain, No Nasal Congestion, No Sinus Pain, No Hoarseness, No sore throat, No Rhinorrhea, No Swallowing Difficulty Eyes: No Eye Pain, No Swelling, No Redness, No Foreign Body, No Discharge, No Vision Changes Cardiovascular : No Chest Pain, No SOB, No Dyspnea on Exertion, No Orthopnea, No Edema, No Palpitations Respiratory : No Cough, No Sputum, No Wheezing, No Smoke Exposure, No Dyspnea Gastrointestinal : No Nausea, No Vomiting, No Diarrhea, No Constipation, No abdominal Pain, No Hematochezia, No Melena Genitourinary : no irregular bleeding, No Dysuria, No Urinary Frequency, No Hematuria, No Urinary Incontinence, No Urgency, No Flank Pain, No Urinary Flow Changes, No Hesitancy Musculoskeletal : No joint pain, No Myalgias, No Joint Swelling Skin : No Skin Lesions, No rash Neuro : No Weakness, No Numbness, No Paresthesias, No Loss of Consciousness, No Dizziness, No Headache complaining of insomnia Psych : No Anxiety/Panic, No Depression, No SI/HI/AH/VH, No Social Issues, Heme/Lymph: No Bruising, No Bleeding,No Lymphadenopathy Endocrine : No Polyuria, No Polydipsia, No Temperature Intolerance [facility] Past Medical History Medical History (Updated 03/13/22 @ 04:43 by Jeannine Reynolds MD) Anxiety Schizophrenia, unspecified Social History Social History (Updated 12/17/20 @ 14:48 by Viktoria Thompson DO) Household Members: Family Housing: Apartment Do you presently have visiting nurse or other home services: No Patient Tobacco Use Status: Never used Tobacco service: No Sexual orientation: Did not discuss. Physical Exam ED Vital Signs: Vital Signs - 24 hr 03/13/22 04:19 Temperature 97.5 F Pulse Rate 68 Respiratory Rate 18 Blood Pressure 149/100 H Pulse Oximetry 99 Oxygen Delivery Method Room Air BMI result Body Mass Index 22.8 Const Other: Appearance: Alert. Oriented X3. No acute distress. Eyes: Pupils equal, round and reactive to light. ENT: Pharynx normal. Neck: Normal inspection. Neck supple. No lymph nodes noted. No crepitus CVS: Normal heart rate and rhythm. Pulses normal. Normal S1 and S2 Respiratory: No respiratory distress. Breath sounds normal. No Wheezing. No rales Abdomen: Soft and nontender. No rigidity. No distention. Skin: Skin warm and dry. Normal skin color. Normal skin turgor. Extremities: No lower extremity edema. No Lacerations. No Rash Neuro: Oriented X 3. No motor deficit. No sensory deficit. Moving all extremities. No slurred speech. CN 2 through 12 grossly intact Psych: calm, cooperative, normal affect slightly hyperverbal but coherent Course Course Course Narrative: Reviewing patient's chart, the patient has history of insomnia. Eventually, patient became psychotic. Patient was discharged on olanzapine 20 mg the last time he was here. Seems that patient had good affect with this medication. Patient does not have a primary care physician, I urged the patient's mother to make an appointment with a PCP so that he can establish care. Patient instructed to return to the emergency room if he has any further symptoms Discharge Plan Discharge Clinical Impression: Insomnia Patient Disposition: Home, Self-Care Instructions: Insomnia (ED) Additional Instructions: Please follow-up with your primary care physician tomorrow. If you have any worsening or new symptoms, please return to the emergency room or call 911 Prescriptions: New melatonin 10 mg capsule 10 mg PO BEDTIME PRN (Reason: sleep) Qty: 30 0RF olanzapine 20 mg tablet 20 mg PO BEDTIME PRN (Reason: insomnia) Qty: 14 0RF No Action olanzapine 20 mg tablet 20 mg PO BEDTIME Qty: 30 0RF olanzapine 20 mg tablet 20 mg PO BEDTIME Qty: 30 1RF
== END 2022-03-13 06:08 | disposition home or self-care (01) ==
PROVIDERS: Emergency Provider Emergency Medicine
DX: G47.00 Insomnia, unspecified (principal); Z79.899 Other long term (current) drug therapy
CPT/HCPCS: 99282; 99283

== ENCOUNTER 2022-03-28 20:59 | Emergency (ER) | payer OTHER, SELFPAY ==
[2022-03-28 21:41] VITALS: BP 121/80; PULSE 79; RESP 16; TEMP 36.7; O2SAT 94; BMI 24.0
[2022-03-29 01:12] VITALS: BP 119/74; PULSE 81; RESP 18; TEMP 36.4; O2SAT 97
--- NOTE | 2022-03-29 01:29 | PC.NURSE ---
Pt called for triage, pt not in waiting room at this time.
--- NOTE | 2022-03-29 01:40 | PC.NURSE ---
vitals at 0112 are not this patient this pt LWBS, vitals were done on a pt with the same last name, the correct vitals are now on the correct pt, i tried to delete i dont know what happened but i couldnt delete it
--- NOTE | 2022-03-29 02:08 | PC.NURSE ---
Pt called for triage, pt not in waiting room at this time.
== END 2022-03-29 02:10 | disposition left against medical advice (07) ==
PROVIDERS: Emergency Provider Emergency Medicine
DX: G47.00 Insomnia, unspecified (principal)
CPT/HCPCS: 99281; 99282

== ENCOUNTER 2022-04-24 04:00 | Emergency (ER) | payer OTHER, SELFPAY ==
[2022-04-24 04:08] VITALS: BP 130/84; PULSE 75; RESP 16; TEMP 36.6; O2SAT 97; BMI 22.8
[2022-04-24 04:40] VITALS: BP 131/82; PULSE 67; RESP 16; TEMP 36.8; O2SAT 96; BMI 22.8
[2022-04-24 04:46] VITALS: BP 131/82; PULSE 67; RESP 16; TEMP 36.8; O2SAT 96
--- NOTE | 2022-04-24 05:41 | ED.GENADULT ---
HPI - General Adult General Chief complaint: General Medical Stated complaint: Tongue Issues Time Seen by Provider: 04/24/22 05:40 Source: patient and family (Mother, Gillian) Mode of arrival: ambulatory Limitations: no limitations History of Present Illness HPI narrative: 21-year-old male who presents emergency department for evaluation tongue burning and concerns about sexually transmitted diseases. The patient was very tangential, had disorganized thoughts, was evasive when answering questions. He told me that he had not had sex with a woman in a very long time but did have intercourse with a woman approximately 1 month prior. He also had oral sex with this woman the told me that he ?put his tongue in the wrong woman ?. The patient was seen recently at an urgent care clinic approximately 2 days prior. The patient states that he refused testing for sexually transmitted diseases but he told me that he convince the clinic provider to treat him empirically for STDs. The patient states that he did receive a time injection which was most likely ceftriaxone and he is currently taking doxycycline 100 mg twice a day. He told me that he is concerned that his tongue and throat are infected. He states that his tongue tastes awful no matter how much she cleans his mouth. He states that he has a constant burning sensation in his tongue as well. He is concerned that he may have HIV disease or other sexually transmitted diseases. In reviewing external records, the patient was admitted to the psychiatric service on 12/11 until 12/23/2020. He was admitted secondary to anxiety, panic attacks, hypo some knee a, racing thoughts and mood swings with the precipitating factor at that time being testing positive for COVID-19 2 weeks prior. His discharge diagnosis at that time was psychosis not otherwise specified by bipolar disorder type 1. He was discharged on olanzapine 20 mg at night. Related Data Previous Rx's Medication Instructions Recorded olanzapine 20 mg tablet 20 mg PO BEDTIME #30 tabs 12/24/20 olanzapine 20 mg tablet 20 mg PO BEDTIME #30 tabs 01/22/21 melatonin 10 mg capsule 10 mg PO BEDTIME PRN sleep #30 caps 03/13/22 olanzapine 20 mg tablet 20 mg PO BEDTIME PRN insomnia #14 03/13/22 tabs Allergies Allergy/AdvReac Type Severity Reaction Status Date / Time No Known Allergies Allergy Verified 04/24/22 04:15 Review of Systems Review of Systems: Yes all other systems are reviewed and are negative PMFSH Past Medical History [facility] Narrative: Past medical history: Reviewed below, the patient was hospitalized here in 2020 and was diagnosed with psychosis not otherwise specified and bipolar disorder type 1. Social history: The patient denies tobacco, alcohol and drug use. Medical History (Updated 04/24/22 @ 06:04 by Jareth Murphy MD) Anxiety Schizophrenia, unspecified Social History Social History (Updated 12/17/20 @ 14:48 by Viktoria Thompson DO) Household Members: Family Housing: Apartment Do you presently have visiting nurse or other home services: No Patient Tobacco Use Status: Never used Tobacco Advance Directives: No service: No Sexual orientation: Did not discuss. Physical Exam ED Vital Signs: Vital Signs - 24 hr 04/24/22 04:08 04/24/22 04:40 04/24/22 04:46 Temperature 97.8 F 98.2 F 98.2 F Pulse Rate 75 67 67 Respiratory Rate 16 16 16 Blood Pressure 130/84 131/82 131/82 Pulse Oximetry 97 96 96 Oxygen Delivery Method Room Air Room Air Room Air BMI result Body Mass Index 22.8 Vital signs reviewed in these were normal Const Other: The patient's answers to questions are disorganized, evasive and tangential. He sometimes makes vague bizarre statements as well. [place] Head: Yes normal to inspection, Yes normocephalic and Yes atraumatic Ears: external ears normal General nose exam: Normal external nose present Face and sinus: Yes normal facial exam Mouth: Normal oral and palatal mucosa present Throat: Yes posterior oropharynx normal Eyes General: appearance normal, both eyes and all related structures Pupils: Equal, round and reactive pupils present Neck Neck: Yes normal visual inspection, Yes no lymphadenopathy, Yes trachea midline and Yes supple Chest Chest palpation & inspection: normal inspection of the chest and normal palpation of entire chest wall Resp Effort & Inspection: normal respiratory effort and able to speak in complete sentences Auscultation: clear to auscultation bilaterally Cardio Rate: regular rate Rhythm: regular rhythm Heart sounds: S1 normal heart sound present, S2 normal heart sound present and no murmurs GI Inspection: Yes normal to inspection Palpation (GI): Soft to palpation, nontender and no guarding Auscultation: normal bowel sounds Other: Hernia exam was negative General: Yes no CVA tenderness Penis: normal penis and circumcised Meatus: meatus normal Scrotum: scrotum normal Testes: Testes normal Back/Spine/Pelvis Back: no CVA tenderness Skin General skin exam: no rashes or lesions noted Neuro Cranial nerves: Yes CN's II-XII intact bilaterally and Yes Equal, round and reactive pupils present Cognition (Neuro): normal cognition Motor exam (neuro): 5/5 motor strength present throughout Extrem General: Yes normal to inspection Psych Appearance: well kempt Speech and movement: Normal speech and movement present Attitude: cooperative Thought process: Tangential thought process present and Other thought process findings present (Disorganized,evasive, bizarre) Thought content: suicidality and no homicidality Medical Decision Making Medical Decision Making MDM Narrative: 21-year-old male who presents emergency department for evaluation complaints of a burning sensation and bad taste in his tongue as well as concerns over possible sexually transmitted disease. The patient did have intercourse with a woman 1 month prior and also had oral sex with women 1 month prior. He was seen 2 days prior at an urgent care clinic and was treated empirically without testing, for gonorrhea and chlamydia with ceftriaxone IM and doxycycline. He is concerned that he has a tongue infection however his physical examination was unremarkable including his examination. I did discuss this with him. The patient was admitted to our psychiatric service in November 2020 after he had psychosis not otherwise specified triggered by recent COVID-19 infection and I suspect that is what is going on with him at this time. The patient however denies this and is concerned about his tongue and STDs. I did tell him that we do not routinely check for HIV disease and syphilis since these tests can be difficult to interpret I do not come back right away and that is better to have these tests performed at in ST the clinic [facility] or [facility]. The patient did agree to this plan. I did tell him that sometimes a multivitamin with thiamine, folate and B12 helps with a burning sensation is time and she should take a multivitamin daily for the next 1-2 months. Differential Diagnosis Differential diagnosis includes was not limited to vitamin deficiency, thrush, STD infection of the throat, psychosis triggered by concerns over STD. Independent Historian Clinical information obtained from an independent historian. History obtained from or confirmed by: Other (Mother) External Record Review External record reviewed: Inpatient record (Psychiatric service admission until 12/24/2020) Tests considered The following testing was considered but not selected: CBC, CMP, GC, chlamydia testing, RPR and HIV Discharge Plan Discharge Clinical Impression: Tongue burning sensation Patient Disposition: Home, Self-Care Additional Instructions: Your examination of your time was unremarkable. The examination of your general area was also unremarkable. At this time I do not have a clear cause for your tongue symptoms however sometimes in abnormal sensation in you tongue can be due to vitamin deficiencies such as deficiencies in iron, folate and vitamin B12. I want you to get a multivitamin with these 3 vitamins in and take it once a day for 1 month to see if it improved her tongue symptoms. We usually do not test people for HIV and syphilis in the emergency department since he is test do not come back right away and require that you follow-up with a provider in order to get the results. I recommend that you go to onr of the STD Clinic such as [facility] Or [facility] to get tested for HIV and syphilis. Finish taking the doxycycline as prescribed by the urgent care clinic Follow-up with your doctor in 2 days. Please return to the emergency department if your symptoms get worse or if you develop any symptoms that are concerning to you. Prescriptions: No Action olanzapine 20 mg tablet 20 mg PO BEDTIME Qty: 30 0RF olanzapine 20 mg tablet 20 mg PO BEDTIME Qty: 30 1RF melatonin 10 mg capsule 10 mg PO BEDTIME PRN (Reason: sleep) Qty: 30 0RF olanzapine 20 mg tablet 20 mg PO BEDTIME PRN (Reason: insomnia) Qty: 14 0RF Interventions: ED Discharge Assessment Last Done: 04/24/22 06:23 Discharge Date/Time: 04/24/22 06:24
== END 2022-04-24 06:24 | disposition home or self-care (01) ==
PROVIDERS: Emergency Provider Emergency Medicine Emergency Medical Services
DX: K13.79 Other lesions of oral mucosa (principal); Z79.899 Other long term (current) drug therapy
CPT/HCPCS: 99283

== ENCOUNTER 2022-04-27 17:34 | Emergency (ER) | payer OTHER, SELFPAY ==
[2022-04-27 17:44] VITALS: BP 154/95; BP 164/96; PULSE 114; PULSE 96; RESP 18; TEMP 37; O2SAT 100; O2SAT 96; BMI 20.1
[2022-04-27 17:55] VITALS: BMI 19.2
--- NOTE | 2022-04-27 18:05 | ED.PSYCH ---
HPI - Psych General Chief Complaint: Chest Pain Stated Complaint: CHEST PAIN, CRISIS Time Seen by Provider: 04/27/22 17:51 Source: patient Mode of arrival: EMS Limitations: no limitations History of Present Illness HPI Narrative: Patient with history of psychotic disorder NOS, bipolar disorder noncompliant to his medications supposed to be on Zyprexa comes here for nonspecific complaints to the EMS patient said chest discomfort here patient is not sure about his chemical status acting strange not himself presents as disorganized tangential level bizarre thought process Related Data Home Medications Medication Instructions Recorded Confirmed doxycycline hyclate 100 mg capsule 1 cap PO BID 04/27/22 04/27/22 melatonin 10 mg capsule 1 cap PO BEDTIME PRN Insomnia 04/27/22 04/28/22 olanzapine 20 mg tablet 1 tab PO BEDTIME insomnia 04/27/22 04/27/22 Allergies Allergy/AdvReac Type Severity Reaction Status Date / Time No Known Allergies Allergy Verified 04/24/22 04:15 Review of Systems Review of Systems: Poor historian Yes all other systems are reviewed and are negative [facility] Past Medical History Medical History Anxiety Schizophrenia, unspecified Social History Social History Household Members: Family Housing: Apartment Do you presently have visiting nurse or other home services: No Alcohol intake: unknown Patient Tobacco Use Status: Never used Tobacco Use of substances other than those prescribed or required for medical reasons: Unknown Advance Directives: No Advance Directives Information Provided: No Healthcare Proxy: No Guardian: No service: No Sexual orientation: Did not discuss. Physical Exam Vital Signs: Vital Signs: Last Vital Signs Temp 98.1 F 04/27/22 22:26 Pulse 83 04/27/22 22:28 Resp 16 04/27/22 22:26 BP 102/52 L 04/27/22 22:28 Pulse Ox 99 04/27/22 22:26 O2 Del Method 04/27/22 20:05 BMI result Body Mass Index 19.2 Course Reevaluation(s) Reevaluation #1: Patient has stable labs for going to the bathroom felt lightheaded and passed out patient was lower down by the staff no head injury patient denies any chest Medications Administered Discontinued Medications Generic Name Dose Route Start Last Admin Trade Name Alexa PRN Reason Stop Dose Admin Olanzapine 20 mg 04/27/22 19:29 04/27/22 19:45 Olanzapine 10 Mg Tablet PO 04/27/22 19:30 20 mg ONCE ONE Administration Medical Decision Making Lab Data [facility] Lab Attestation statement: I reviewed the patient's lab results. Result Diagrams: 04/27/22 18:20 04/27/22 18:20 Labs: Lab Results 04/27/22 04/27/22 04/27/22 Range/Units 18:20 18:20 18:20 WBC 9.4 (4.8-10.8) X10*3/uL RBC 5.54 (4.60-5.80) X10*6/uL Hgb 16.3 (14.0-18.0) g/dl Hct 47.6 (42.0-52.0) % MCV 85.9 (80.0-98.0) fL MCH 29.4 (27.0-33.0) pg MCHC 34.2 (31.0-36.0) g/dl RDW 12.8 (11.0-16.0) % Plt Count 309 (160-400) X10*3/uL MPV 10.4 (9.4-12.4) fL Immature Gran % (Auto) 0.2 (0.0-0.4) % Neut % (Auto) 71.7 (45-73) % Lymph % (Auto) 20.7 (20-40) % [place] % (Auto) 6.6 (2-11) % Eos % (Auto) 0.3 (0-4) % Baso % (Auto) 0.5 (0-2) % Lymph # (Auto) 1.9 (1.2-4.9) X10*3/uL [place] # (Auto) 0.6 (0.1-1.2) X10*3/uL Eos # (Auto) 0.0 (0.0-0.4) X10*3/uL Baso # (Auto) 0.1 (0.0-0.2) X10*3/uL Abs Immat Gran (auto) 0.02 (0.00-0.03) X10*3/uL Absolute Neuts (auto) 6.7 (2.0-8.3) x10*3/uL Absolute Nucleated RBC 0.000 (0.0-0.012) X10*3/uL Nucleated RBC % (auto) 0.0 (0.0-0.2) /100WBC Sodium 136 (135-145) mmol/L Potassium 3.7 (3.3-5.1) mmol/L Chloride 103 (96-108) mmol/L Carbon Dioxide 25 (22-29) mmol/L Anion Gap 12 (12-20) BUN 16 (9-16) mg/dL Creatinine 1.14 (0.5-1.4) mg/dL Estim Creat Clear Calc 85.4 Estimated GFR > 60 POC Glucose (60-115) mg/dL Random Glucose 110 (60-115) mg/dL Calcium 10.1 (8.4-10.2) mg/dL Total Bilirubin 1.1 H (0.0-1.0) mg/dL AST 20 (5-37) U/L ALT 15 (0-40) U/L Alkaline Phosphatase 83 (39-117) U/L Troponin I High Sens (<3.5-35.0) ng/L Total Protein 8.6 H (6.5-8.0) g/dL Albumin 4.6 (3.5-5.0) g/dL Urine Opiates Screen (Not Detect) Urine Fentanyl Screen (Not Detect) Ur Barbiturates Screen (Not Detect) Ur Phencyclidine Scrn (Not Detect) Ur Amphetamines Screen (Not Detect) U Benzodiazepines Scrn (Not Detect) Urine Cocaine Screen (Not Detect) U Marijuana (THC) Screen (Not Detect) COVID-19 (RUTHY) Negative (Negative) COVID-19 Clin Com See Note Influenza Type A (NELIDA) (Negative) Influenza Type B (NELIDA) (Negative) Influenza A & B Note 04/27/22 04/27/22 04/27/22 Range/Units 18:20 18:45 22:01 WBC (4.8-10.8) X10*3/uL RBC (4.60-5.80) X10*6/uL Hgb (14.0-18.0) g/dl Hct (42.0-52.0) % MCV (80.0-98.0) fL MCH (27.0-33.0) pg MCHC (31.0-36.0) g/dl RDW (11.0-16.0) % Plt Count (160-400) X10*3/uL MPV (9.4-12.4) fL Immature Gran % (Auto) (0.0-0.4) % Neut % (Auto) (45-73) % Lymph % (Auto) (20-40) % [place] % (Auto) (2-11) % Eos % (Auto) (0-4) % Baso % (Auto) (0-2) % Lymph # (Auto) (1.2-4.9) X10*3/uL [place] # (Auto) (0.1-1.2) X10*3/uL Eos # (Auto) (0.0-0.4) X10*3/uL Baso # (Auto) (0.0-0.2) X10*3/uL Abs Immat Gran (auto) (0.00-0.03) X10*3/uL Absolute Neuts (auto) (2.0-8.3) x10*3/uL Absolute Nucleated RBC (0.0-0.012) X10*3/uL Nucleated RBC % (auto) (0.0-0.2) /100WBC Sodium (135-145) mmol/L Potassium (3.3-5.1) mmol/L Chloride (96-108) mmol/L Carbon Dioxide (22-29) mmol/L Anion Gap (12-20) BUN (9-16) mg/dL Creatinine (0.5-1.4) mg/dL Estim Creat Clear Calc Estimated GFR POC Glucose (60-115) mg/dL Random Glucose (60-115) mg/dL Calcium (8.4-10.2) mg/dL Total Bilirubin (0.0-1.0) mg/dL AST (5-37) U/L ALT (0-40) U/L Alkaline Phosphatase (39-117) U/L Troponin I High Sens < 3.5 (<3.5-35.0) ng/L Total Protein (6.5-8.0) g/dL Albumin (3.5-5.0) g/dL Urine Opiates Screen Not Detected (Not Detect) Urine Fentanyl Screen Not Detected (Not Detect) Ur Barbiturates Screen Not Detected (Not Detect) Ur Phencyclidine Scrn Not Detected (Not Detect) Ur Amphetamines Screen Not Detected (Not Detect) U Benzodiazepines Scrn Not Detected (Not Detect) Urine Cocaine Screen Not Detected (Not Detect) U Marijuana (THC) Screen Not Detected (Not Detect) COVID-19 (RUTHY) (Negative) COVID-19 Clin Com Influenza Type A (NELIDA) Negative (Negative) Influenza Type B (NELIDA) Negative (Negative) Influenza A & B Note See Note 04/27/22 Range/Units 22:33 WBC (4.8-10.8) X10*3/uL RBC (4.60-5.80) X10*6/uL Hgb (14.0-18.0) g/dl Hct (42.0-52.0) % MCV (80.0-98.0) fL MCH (27.0-33.0) pg MCHC (31.0-36.0) g/dl RDW (11.0-16.0) % Plt Count (160-400) X10*3/uL MPV (9.4-12.4) fL Immature Gran % (Auto) (0.0-0.4) % Neut % (Auto) (45-73) % Lymph % (Auto) (20-40) % [place] % (Auto) (2-11) % Eos % (Auto) (0-4) % Baso % (Auto) (0-2) % Lymph # (Auto) (1.2-4.9) X10*3/uL [place] # (Auto) (0.1-1.2) X10*3/uL Eos # (Auto) (0.0-0.4) X10*3/uL Baso # (Auto) (0.0-0.2) X10*3/uL Abs Immat Gran (auto) (0.00-0.03) X10*3/uL Absolute Neuts (auto) (2.0-8.3) x10*3/uL Absolute Nucleated RBC (0.0-0.012) X10*3/uL Nucleated RBC % (auto) (0.0-0.2) /100WBC Sodium (135-145) mmol/L Potassium (3.3-5.1) mmol/L Chloride (96-108) mmol/L Carbon Dioxide (22-29) mmol/L Anion Gap (12-20) BUN (9-16) mg/dL Creatinine (0.5-1.4) mg/dL Estim Creat Clear Calc Estimated GFR POC Glucose 108 (60-115) mg/dL Random Glucose (60-115) mg/dL Calcium (8.4-10.2) mg/dL Total Bilirubin (0.0-1.0) mg/dL AST (5-37) U/L ALT (0-40) U/L Alkaline Phosphatase (39-117) U/L Troponin I High Sens (<3.5-35.0) ng/L Total Protein (6.5-8.0) g/dL Albumin (3.5-5.0) g/dL Urine Opiates Screen (Not Detect) Urine Fentanyl Screen (Not Detect) Ur Barbiturates Screen (Not Detect) Ur Phencyclidine Scrn (Not Detect) Ur Amphetamines Screen (Not Detect) U Benzodiazepines Scrn (Not Detect) Urine Cocaine Screen (Not Detect) U Marijuana (THC) Screen (Not Detect) COVID-19 (RUTHY) (Negative) COVID-19 Clin Com Influenza Type A (NELIDA) (Negative) Influenza Type B (NELIDA) (Negative) Influenza A & B Note Independent Interpretation I performed an independent interpretation of an: EKG Interpretation: Normal sinus rhythm heart rate 72 beats per normal interval normal axis no acute ST depression no acute ischemia Repeat EKG at 22:23 heart rate 72 beats per minute no acute ST changes few PACs no significant change from the previous EKG Discharge Plan Discharge Clinical Impression: Psychosis Patient Disposition: Still a Patient Prescriptions: No Action doxycycline hyclate 100 mg capsule 1 cap PO BID olanzapine 20 mg tablet 1 tab PO BEDTIME melatonin 10 mg capsule 1 cap PO BEDTIME PRN (Reason: Insomnia)
--- NOTE | 2022-04-27 18:06 | ECG_ITS ---
Test Reason : CHEST PAIN Blood Pressure : / mmHG Vent. Rate : 072 BPM Atrial Rate : 072 BPM P-R Int : 114 ms QRS Dur : 112 ms QT Int : 372 ms P-R-T Axes : 069 057 059 degrees QTc Int : 407 ms Normal sinus rhythm Normal ECG No previous ECGs available Referred By: Trevor Adames Electronically Signed By:RYLAN JOSE
[2022-04-27 18:25] LABS: MANUAL DIFF FLAG NO
[2022-04-27 18:32] LABS: Basophils Absolute Auto 0.1 X10*3/uL (0.0-0.2); Basophils Percent Auto 0.5 % (0-2); Eosinophils Percent Auto 0.3 % (0-4); Hematocrit 47.6 % (42.0-52.0); Hemoglobin 16.3 g/dl (14.0-18.0); Imm Gran Abs Auto 0.02 X10*3/uL (0.00-0.03); Imm Gran Pct Auto 0.2 % (0.0-0.4); Lymphocytes Absolute Auto 1.9 X10*3/uL (1.2-4.9); Lymphocytes Percent Auto 20.7 % (20-40); Mean Corpuscular HGB Conc 34.2 g/dl (31.0-36.0); Mean Corpuscular Hemoglobin 29.4 pg (27.0-33.0); Mean Corpuscular Volume 85.9 fL (80.0-98.0); Mean Platelet Volume 10.4 fL (9.4-12.4); Monocytes Absolute Auto 0.6 X10*3/uL (0.1-1.2); Monocytes Percent Auto 6.6 % (2-11); Neutrophils Absolute Auto 6.7 x10*3/uL (2.0-8.3); Neutrophils Percent Auto 71.7 % (45-73); Platelet Count 309 X10*3/uL (160-400); Red Blood Count 5.54 X10*6/uL (4.60-5.80); Red Cell Distribution Width 12.8 % (11.0-16.0); White Blood Count 9.4 X10*3/uL (4.8-10.8)
--- NOTE | 2022-04-27 18:33 | PC.NURSE ---
pt sitting up in stretcher, in no apparent distress, labs and EKG done. awaiting further recs
[2022-04-27 18:37] LABS: COVID-19 Test Negative (Negative); IDNOW Serial# 9DB6401D
[2022-04-27 18:53] LABS: Alanine Aminotransferase 15 U/L (0-40); Albumin Level 4.6 g/dL (3.5-5.0); Alkaline Phosphatase 83 U/L (39-117); Anion Gap 12 (12-20); Aspartate Amino Transferase 20 U/L (5-37); Bilirubin Total 1.1 mg/dL (0.0-1.0); Blood Urea Nitrogen 16 mg/dL (9-16); Calcium 10.1 mg/dL (8.4-10.2); Carbon Dioxide 25 mmol/L (22-29); Chloride 103 mmol/L (96-108); Creatinine Clr Calc Pharmacy 85.4; Estimated Glomerular Filt Rate > 60; Glucose Random 110 mg/dL (60-115); Potassium 3.7 mmol/L (3.3-5.1); Sodium 136 mmol/L (135-145); Total Protein 8.6 g/dL (6.5-8.0)
[2022-04-27 19:02] LABS: Amphetamine Screen Urine Not Detected (Not Detect); Barbiturates, Urine Not Detected (Not Detect); Benzodiazepines Screen Urine Not Detected (Not Detect); Cannabinoid Screen Urine Not Detected (Not Detect); Cocaine Screen Urine Not Detected (Not Detect); Fentanyl, urine Not Detected (Not Detect); Opiate Screen Urine Not Detected (Not Detect); Phencyclidine Screen Urine Not Detected (Not Detect)
[2022-04-27] MEDS: OLANZapine 10 MG TABLET 20 MG PO (19:45)
[2022-04-27 20:05] VITALS: BP 156/105; PULSE 72; RESP 18; TEMP 36.9; O2SAT 98
--- NOTE | 2022-04-27 20:42 | MHC.CARE ---
Karen contacted by [place] [employer] Clinician to report that Nikhil was being transported to [facility] ED due to being grandiose and nonsensical.
--- NOTE | 2022-04-27 22:23 | ECG_ITS ---
Test Reason : SYNCOPE Blood Pressure : / mmHG Vent. Rate : 072 BPM Atrial Rate : 072 BPM P-R Int : 118 ms QRS Dur : 120 ms QT Int : 396 ms P-R-T Axes : 067 066 059 degrees QTc Int : 433 ms Sinus rhythm with marked sinus arrhythmia Non-specific intra-ventricular conduction delay Borderline ECG When compared with ECG of 27-APR-2022 18:22, No significant change was found Referred By: Trevor Adames Electronically Signed By:RYLAN JOSE
[2022-04-27 22:26] VITALS: BP 108/65; PULSE 65; RESP 16; TEMP 36.7; O2SAT 99
[2022-04-27 22:27] VITALS: BP 120/65; PULSE 63
[2022-04-27 22:28] VITALS: BP 102/52; BP 109/70; PULSE 83; PULSE 86
[2022-04-27 22:29] LABS: IDNOW Serial# 6674DD1D
[2022-04-27 22:30] LABS: Influenza A Negative (Negative); Influenza B2 Negative (Negative)
[2022-04-27 22:37] LABS: Glucose, Whole Blood 108 mg/dL (60-115)
[2022-04-27 23:25] LABS: Troponin-I High Sensitivity < 3.5 ng/L (<3.5-35.0)
--- NOTE | 2022-04-27 23:29 | PC.NURSE ---
LATE ENTRY-@ 2220 WHILE REPORT BEING GIVEN TO pod, PT HAD SYNCOPAL EPISODE WHILE IN BATHROOM WITH FROG CATCHER.PT ABLE TO SIT DOWN WITH ASSISTANCE OF FROG CATCHER. PT REPORTS FEELING DIZZY AT THIS TIME. EKG DONE AT THIS TIME WELL ORTHOSTATIC VS PER DR LIVE ORDER. PT RESTING COMFORTABLY ON STRETCHER AT THIS TIME. NO ADDITIONAL ORDERS
--- NOTE | 2022-04-28 03:50 | PC.NURSE ---
Patient slept through the night, no distress observed/reported, ambulates independently, med rec completed/pending provider's approval, behavior non concerning, care team attempted to assess, patient couldn't stay awake, patient will be reevaluated by care team in the morning, will continue to monitor.
[2022-04-28 06:29] VITALS: BP 114/77; PULSE 76; RESP 16; TEMP 36.7; O2SAT 98
--- NOTE | 2022-04-28 08:37 | PC.NURSE ---
ate breakfast and back to bed, pt was pleasant and cooperative, nad, asked about when eval would happen and currently awaiting care team re eval
--- NOTE | 2022-04-28 10:27 | MHC.CARE ---
Patient was seen this morning for an updated mental status, he is currently an active inpt bed search.
[2022-04-28 11:17] VITALS: BP 135/99; PULSE 87; RESP 16; TEMP 36.6; O2SAT 96
--- NOTE | 2022-04-28 12:41 | MHC.CARE ---
patient is currently a bed search
[2022-04-28] MEDS: OLANZapine 5 MG TABLET PO (12:59)
--- NOTE | 2022-04-28 15:11 | MHC.CARE ---
pt was accepted to [facility]
== END 2022-04-28 16:36 ==
PROVIDERS: Internal Medicine; Emergency Provider Emergency Medicine Emergency Medical Services
DX: F29 Unspecified psychosis not due to a substance or known physiological condition (principal); Z20.822 Contact with and (suspected) exposure to COVID-19; F20.9 Schizophrenia, unspecified; F41.9 Anxiety disorder, unspecified; Z91.14 Patient's other noncompliance with medication regimen
CPT/HCPCS: 36415; 80053; 80307; 82947; 84484; 85025; 87502; 87635; 93005; 99285; S9485

== ENCOUNTER 2023-02-08 03:23 | Inpatient (IN) | payer OTHER, SELFPAY ==
--- NOTE | 2023-02-08 | ECG_ITS ---
Test Reason : check qt interval Blood Pressure : / mmHG Vent. Rate : 054 BPM Atrial Rate : 054 BPM P-R Int : 118 ms QRS Dur : 112 ms QT Int : 414 ms P-R-T Axes : 064 052 049 degrees QTc Int : 392 ms Sinus bradycardia with sinus arrhythmia Incomplete right bundle branch block Abnormal ECG When compared with ECG of 27-APR-2022 22:23, No significant change was found Referred By: Jareth Murphy Electronically Signed By:MARYANN YEAGER MD
[2023-02-08 03:31] VITALS: BP 156/111; PULSE 66; RESP 18; TEMP 36.6; O2SAT 99; BMI 22.8
[2023-02-08 04:01] LABS: Amphetamine Screen Urine Not Detected (Not Detect); Barbiturates, Urine Not Detected (Not Detect); Benzodiazepines Screen Urine Not Detected (Not Detect); Cannabinoid Screen Urine Not Detected (Not Detect); Cocaine Screen Urine Not Detected (Not Detect); Fentanyl, urine Not Detected (Not Detect); Opiate Screen Urine Not Detected (Not Detect); Phencyclidine Screen Urine Not Detected (Not Detect)
--- NOTE | 2023-02-08 04:12 | ED.PSYCH ---
HPI - Psych General Chief Complaint: Psychiatric Symptoms Stated Complaint: Crisis Time Seen by Provider: 02/08/23 04:02 Source: patient Mode of arrival: ambulatory Limitations: no limitations History of Present Illness HPI Narrative: 22 yo male with PMH of schizophrenia not on his medications here with AH/VH but no SI/HI. MD complaint: hallucinations Onset (ago): month(s) Duration: getting worse History of same: Yes Relieving factors: none Exacerbating factors: other Context: not taking psychiatric medications Associated psychiatric symptoms: depression, auditory hallucinations and visual hallucinations Associated symptoms: denies other symptoms Treatments prior to arrival: none Related Data Home Medications Medication Instructions Recorded Confirmed No Known Home Meds 02/08/23 02/08/23 Allergies Allergy/AdvReac Type Severity Reaction Status Date / Time No Known Allergies Allergy Verified 02/08/23 03:35 Review of Systems Review of Systems: Constitutional : No Fever, No Chills ENT/Mouth : No Ear Pain, No Nasal Congestion, No sore throat Eyes: No Eye Pain, No Swelling, No Redness Cardiovascular : No Chest Pain, No SOB Respiratory : No Cough, No Sputum, No Dyspnea Gastrointestinal : No Nausea, No Vomiting, No Diarrhea, No Hematochezia, No Melena Genitourinary : No Dysuria, No Urinary Frequency, No Hematuria Musculoskeletal : No Myalgias Skin : No Skin Lesions, No rash Neuro : No Weakness, No Numbness, No Paresthesias, No Dizziness, No Headache Psych : positive Anxiety, positive Depression, no SI/HI, pos AH/VH Heme/Lymph: No Lymphadenopathy Endocrine : No Polyuria, No Polydipsia All other systems reviewed and are negative [facility] Past Medical History Attestation statement: The following information was validated with the patient. Source: old records reviewed Medical History Schizophrenia, unspecified Anxiety Social History Social History Household Members: Family Housing: Apartment Do you presently have visiting nurse or other home services: No Alcohol intake: unknown Patient Tobacco Use Status: Never used Tobacco Advance Directives: No Advance Directives Information Provided: No service: No Sexual orientation: Did not discuss. Physical Exam Vital Signs: Vital Signs: Last Vital Signs Temp 98 F 02/08/23 03:31 Pulse 66 02/08/23 03:31 Resp 18 02/08/23 03:31 BP 156/111 H 02/08/23 03:31 Pulse Ox 99 02/08/23 03:31 O2 Del Method Room Air 02/08/23 03:31 BMI result Body Mass Index 22.8 Appearance: Alert. Oriented X3. No acute distress. Eyes: Pupils equal, round and reactive to light. ENT: Pharynx normal. Neck: Normal inspection. Neck supple. CVS: Normal heart rate and rhythm. Pulses normal. Respiratory: No respiratory distress. Breath sounds normal. Abdomen: Soft and nontender. Skin: Skin warm and dry. Normal skin color. Extremities: No lower extremity edema. Neuro: Oriented X 3. No motor deficit. No sensory deficit. CN2-12 intact Course Course Course Narrative: Physician observation started at 414am Patient placed in physician observation because the patient needed more time for CARE team to assess the need for psych admission. At the time observation was started the patient's vitals were stable, patient is alert and oriented Neuro: nonfocal, CV RRR, Lungs clear Medical Decision Making Medical Decision Making [facility] Narrative: 22 yo male wiht PMH of schizophrenia here with c/o med non-compliance and AH/VH he will need labs and CARE team consult Differential Diagnosis Differential Diagnoses: The differential diagnosis associated with the presentation includes Admission/Observation Consideration of admission/observation: Escalation of care including admission/observation considered observe until CARE team sees patient Lab Data [facility] Lab Attestation statement: I reviewed the patient's lab results. Labs: Lab Results 02/08/23 Range/Units 03:48 Urine Opiates Screen Not Detected (Not Detect) Urine Fentanyl Screen Not Detected (Not Detect) Ur Barbiturates Screen Not Detected (Not Detect) Ur Phencyclidine Scrn Not Detected (Not Detect) Ur Amphetamines Screen Not Detected (Not Detect) U Benzodiazepines Scrn Not Detected (Not Detect) Urine Cocaine Screen Not Detected (Not Detect) U Marijuana (THC) Screen Not Detected (Not Detect) External Record Review External record reviewed: Inpatient record Social Determinants Patient?s care significantly limited by Social Determinants of Health including: Other Social Determinant of Health Discharge Plan Discharge Clinical Impression: Schizophrenia, unspecified Qualifiers: Schizophrenia type: unspecified Qualified Code(s): F20.9 - Schizophrenia, unspecified Patient Disposition: Still a Patient Prescriptions: No Action No Known Home Meds
[2023-02-08 04:13] LABS: MANUAL DIFF FLAG NO
[2023-02-08 04:14] LABS: Basophils Percent Auto 0.5 % (0-2); Eosinophils Absolute Auto 0.2 X10*3/uL (0.0-0.4); Eosinophils Percent Auto 2.9 % (0-4); Hematocrit 43.6 % (42.0-52.0); Hemoglobin 14.9 g/dl (14.0-18.0); Imm Gran Abs Auto 0.01 X10*3/uL (0.00-0.03); Imm Gran Pct Auto 0.2 % (0.0-0.4); Lymphocytes Absolute Auto 2.9 X10*3/uL (1.2-4.9); Lymphocytes Percent Auto 44.6 % (20-40); Mean Corpuscular HGB Conc 34.2 g/dl (31.0-36.0); Mean Corpuscular Hemoglobin 29.6 pg (27.0-33.0); Mean Corpuscular Volume 86.5 fL (80.0-98.0); Mean Platelet Volume 9.9 fL (9.4-12.4); Monocytes Absolute Auto 0.7 X10*3/uL (0.1-1.2); Monocytes Percent Auto 10.2 % (2-11); Neutrophils Absolute Auto 2.7 x10*3/uL (2.0-8.3); Neutrophils Percent Auto 41.6 % (45-73); Platelet Count 247 X10*3/uL (160-400); Red Blood Count 5.04 X10*6/uL (4.60-5.80); Red Cell Distribution Width 12.4 % (11.0-16.0); White Blood Count 6.6 X10*3/uL (4.8-10.8)
[2023-02-08] MEDS: OLANZapine ODT 10 MG TAB.RAPDIS TRANSLINGU (04:23)
[2023-02-08 04:32] LABS: Alanine Aminotransferase 18 U/L (0-40); Alkaline Phosphatase 73 U/L (39-117); Anion Gap 14 (12-20); Aspartate Amino Transferase 26 U/L (5-37); Bilirubin Total 0.4 mg/dL (0.0-1.0); Blood Urea Nitrogen 14 mg/dL (9-16); Calcium 9.2 mg/dL (8.4-10.2); Carbon Dioxide 22 mmol/L (22-29); Chloride 108 mmol/L (96-108); Creatinine Clr Calc Pharmacy 96.9; Estimated Glomerular Filt Rate > 60; Ethanol < 10 mg/dL; Glucose Random 79 mg/dL (60-115); Potassium 3.6 mmol/L (3.3-5.1); Sodium 140 mmol/L (135-145); Total Protein 7.8 g/dL (6.5-8.0)
--- NOTE | 2023-02-08 06:36 | PC.NURSE ---
PATIENT IS CURRENTLY IN BED APPEARS SLEEPING, OLANZAPINE 10 MG po ADMINISTERED AT 0420 WITH + EFFECT, THOUGHT CONTENT PARANOID, THOUGHT PROCESS INCOHERENT AND TANGENTIAL, LAB COMPLETED/RESULTED, VSS, CARE CONSULT ORDERED/PENDING EVALUATION, WILL CONTINUE TO MONITOR.
--- NOTE | 2023-02-08 07:09 | PC.NURSE ---
patient appears to remain asleep at present respirations are even and unlabored patient appears in no distress.
[2023-02-08 07:59] VITALS: BP 112/81; PULSE 79; RESP 19; TEMP 36.6; O2SAT 99
[2023-02-08 08:10] LABS: Appearance Urine Clear; Color Urine Yellow; Glucose Urine UA Negative (Negative); Leukocyte Esterase Urine Negative (Negative); Nitrite Urine Negative (Negative); Urine Blood Negative (Negative); Urine Ketones Negative (Negative); Urine Protein Negative (Neg-Trace)
[2023-02-08 08:13] LABS: Bacteria Urine None Seen (None Seen); Hyaline Casts Urine 0-2 /LPF (0-2); RBC Urine 0-2 /HPF (0-2); Squamous Epithelial Cell Urine 0-2 /HPF (0-2); WBC Urine 0-5 /HPF (0-5)
[2023-02-08 11:00] LABS: COVID-19 Test Negative (Negative); IDNOW Serial# BCCEAD1C
[2023-02-08 14:20] VITALS: BP 125/77; PULSE 68; RESP 18; TEMP 35.9; O2SAT 99
--- NOTE | 2023-02-08 14:36 | PC.NURSE ---
Pt signed a 3 day on 02/08/23 due to resolve on 02/13/23
--- NOTE | 2023-02-08 14:36 | PC.ADMIT ---
Pt came onto the unit around 1413, skin check performed by TW and [facility] Krystina Palacios, menu filled out, unit orientation given, legals not signed at this time.
[2023-02-08] MEDS: OLANZapine 10 MG TABLET PO (20:24)
--- NOTE | 2023-02-08 23:26 | PC.ADMIT ---
Patient is a 22 year old single Croatian speaking male admitted as a CV admission to at 1415 and placed on 15 minute safety checks. Patient was medically cleared in the [facility] ED, evaluated by the CARE team and deemed in need of IPLOC secondary to having delusions that He is not of the real world , being noncompliant with medications since July 2022 and having delusions that he is absorbing everyone's energy. Patient denied any previous psychiatric admissions, although he has been on M5 in the past. Patient has been noted speaking to himself and saying that he has too much energy to go to sleep. Patient was difficult to speak to during the admission process d/t being distracted and talking to himself. Patient said that he is sure all he needs is to get some sleep and then he will be ready to go home. Patient said that taking medications will interfere with his ability to help others d/t blocking his spiritual energy during the day, but taking something at night is okay, because he needs to rest. Patient said he has no providers, including a PCP, therapist or psychiatric providers. Patient did sign legals. Treatment plan will be completed.
[2023-02-09 08:45] LABS: Estimated Average Glucose 100 mg/dL; Hemoglobin A1c % 5.1 % (<6.0)
[2023-02-09 08:49] VITALS: BP 137/81; PULSE 65; RESP 18; TEMP 36.9; O2SAT 97
[2023-02-09 09:07] LABS: Alanine Aminotransferase 21 U/L (0-40); Albumin Level 3.8 g/dL (3.5-5.0); Alkaline Phosphatase 68 U/L (39-117); Anion Gap 11 (12-20); Aspartate Amino Transferase 27 U/L (5-37); Bilirubin Total 0.3 mg/dL (0.0-1.0); Blood Urea Nitrogen 14 mg/dL (9-16); Calcium 9.2 mg/dL (8.4-10.2); Carbon Dioxide 23 mmol/L (22-29); Chloride 105 mmol/L (96-108); Cholesterol 90 mg/dL (<200); Creatinine Clr Calc Pharmacy 111.5; Estimated Glomerular Filt Rate > 60; Glucose Fasting 86 mg/dL (60-99); HDL Cholesterol 32 mg/dL (>40); LDL Cholesterol Calculated 42 mg/dL (<100); Magnesium 2.2 mg/dL (1.6-2.6); Potassium 3.4 mmol/L (3.3-5.1); Sodium 136 mmol/L (135-145); Total Protein 7.5 g/dL (6.5-8.0); Triglycerides 83 mg/dL (<150)
[2023-02-09 09:14] LABS: Free T4 (Free Thyroxine) 1.11 ng/dL (0.71-1.85); Thyroid Stimulating Hormone 0.73 uIU/mL (0.32-4.0)
[2023-02-09 09:24] LABS: Folate 9.4 ng/mL (> or = 4.0); Vitamin B12 450 pg/mL (200-900)
--- NOTE | 2023-02-09 17:57 | P.HPPS_ITS ---
HPI Date of Service: 02/09/23 Chief Complaint: schizophrenia Sources of Information: patient interviewed, chart reviewed and crisis/core team assessment reviewed HPI Subjective Notes: [place] Warning, Conditional Voluntary and 3 Day Healthcare Proxy: No Guardianship: No Medical Problems Affecting Mental Status: No Narrative: 22 yo male, history of schizophrenia, presents with increased delusional sx, stating he does not feel he is in the real world but in a spiritual world. Reports auditory and visual perceptual alterations. Stopped meds July 2022. Reports sleep impairment. Grandiose in presentation in the ER citing he is able to feel everyone's energy and their soul power and expressed concern about his essence and energy. Pt signed a three day notice on arrival and states to this radio script writer, I want to go today. I know what I did wrong and I know what I have to do-take meds and go to therapy. If I promise you I will may I go now. Discussed the three day notice and needing to allow time for assessment. By history, pt has had difficult admits to a few of the [place] facilities. Attempted explanation and orientation to [facility] [place]. OK, I am staying, but I want to go on the three day. I will take the meds I promise . Pt discussed briefly his zoroastrianism content and reported that he is amazed at the spiritual power he has currently, asking that we attempt not to take that away with medication as it was euphoric . Past Psychiatric History: IP: A few [place], [facility] [place], OP: No, I did not go Trials: Yes, denies SE, however family tells team he had had SE Medical Evaluation Reviewed: Yes [facility] Medical History (Updated 02/09/23 @ 19:15 by Maryjane Thakur APRN) Schizoaffective disorder, bipolar type Schizophrenia, unspecified Anxiety Narrative: COVID 12/12- with psychosis following this illness Family History: affirms Social History: I am born from the holy being Substance History: Denies Trauma History: Life has been my trauma Diagnostics Vital Signs (24Hr): Vital Signs - 24 hr 02/09/23 08:49 Temperature 98.5 F Pulse Rate 65 Respiratory Rate 18 Blood Pressure 137/81 Pulse Oximetry 97 Oxygen Delivery Method Room Air BMI result Body Mass Index 22.8 Labs 02/08/23 04:06 02/09/23 08:09 Labs: Laboratory Results - last 48 hr 02/08/23 02/08/23 02/08/23 03:48 04:06 10:26 WBC 6.6 RBC 5.04 Hgb 14.9 Hct 43.6 MCV 86.5 MCH 29.6 MCHC 34.2 RDW 12.4 Plt Count 247 MPV 9.9 Immature Gran % (Auto) 0.2 Neut % (Auto) 41.6 L Lymph % (Auto) 44.6 H Gaines % (Auto) 10.2 Eos % (Auto) 2.9 Baso % (Auto) 0.5 Lymph # (Auto) 2.9 Gaines # (Auto) 0.7 Eos # (Auto) 0.2 Baso # (Auto) 0.0 Abs Immat Gran (auto) 0.01 Absolute Neuts (auto) 2.7 Absolute Nucleated RBC 0.000 Nucleated RBC % (auto) 0.0 Sodium 140 Potassium 3.6 Chloride 108 Carbon Dioxide 22 Anion Gap 14 BUN 14 Creatinine 1.15 Estim Creat Clear Calc 96.9 Estimated GFR > 60 Random Glucose 79 Fasting Glucose Estimat Average Glucose Hemoglobin A1c % Calcium 9.2 D Magnesium Total Bilirubin 0.4 AST 26 ALT 18 Alkaline Phosphatase 73 Total Protein 7.8 Albumin 4.0 Triglycerides Cholesterol LDL Cholesterol, Calc HDL Cholesterol Vitamin B12 Folate TSH Free T4 Urine Color Yellow Urine Appearance Clear Urine pH 7.0 Ur Specific [place] 1.010 Urine Protein Negative Urine Glucose (UA) Negative Urine Ketones Negative Urine Blood Negative Urine Nitrite Negative Ur Leukocyte Esterase Negative Urine RBC 0-2 Urine WBC 0-5 Ur Squamous Epith Cells 0-2 Urine Bacteria None Seen Hyaline Casts 0-2 Urine Opiates Screen Not Detected Urine Fentanyl Screen Not Detected Ur Barbiturates Screen Not Detected Ur Phencyclidine Scrn Not Detected Ur Amphetamines Screen Not Detected U Benzodiazepines Scrn Not Detected Urine Cocaine Screen Not Detected U Marijuana (THC) Screen Not Detected Ethyl Alcohol < 10 COVID-19 ([facility]) Negative COVID-19 Clin Com See Note 02/09/23 08:09 WBC RBC Hgb Hct MCV MCH MCHC RDW Plt Count MPV Immature Gran % (Auto) Neut % (Auto) Lymph % (Auto) Gaines % (Auto) Eos % (Auto) Baso % (Auto) Lymph # (Auto) Gaines # (Auto) Eos # (Auto) Baso # (Auto) Abs Immat Gran (auto) Absolute Neuts (auto) Absolute Nucleated RBC Nucleated RBC % (auto) Sodium 136 Potassium 3.4 Chloride 105 Carbon Dioxide 23 Anion Gap 11 L BUN 14 Creatinine 1.00 Estim Creat Clear Calc 111.5 Estimated GFR > 60 Random Glucose Fasting Glucose 86 Estimat Average Glucose 100 Hemoglobin A1c % 5.1 Calcium 9.2 Magnesium 2.2 Total Bilirubin 0.3 AST 27 ALT 21 Alkaline Phosphatase 68 Total Protein 7.5 Albumin 3.8 Triglycerides 83 Cholesterol 90 LDL Cholesterol, Calc 42 HDL Cholesterol 32 L Vitamin B12 450 Folate 9.4 TSH 0.73 Free T4 1.11 Urine Color Urine Appearance Urine pH Ur Specific [place] Urine Protein Urine Glucose (UA) Urine Ketones Urine Blood Urine Nitrite Ur Leukocyte Esterase Urine RBC Urine WBC Ur Squamous Epith Cells Urine Bacteria Hyaline Casts Urine Opiates Screen Urine Fentanyl Screen Ur Barbiturates Screen Ur Phencyclidine Scrn Ur Amphetamines Screen U Benzodiazepines Scrn Urine Cocaine Screen U Marijuana (THC) Screen Ethyl Alcohol COVID-19 ([facility]) COVID-19 Clin Com Meds/Allergies Meds Home Medications Medication Instructions Recorded Confirmed Type No Known Home Meds 02/08/23 02/08/23 History Allergies Allergies Allergy/AdvReac Type Severity Reaction Status Date / Time No Known Allergies Allergy Verified 02/08/23 03:35 Mental Status Exam Mental Status Exam Patient Appearance: Appropriate Patient Orientation: Person, Place and Time Level of Consciousness: Alert Patient Behavior: Talkative, Hyperactive, Restless, Wandering, Resistive to Care (ambivalent-does not need treatment, but knows he needs to comply to leave), Distractible and Good Eye Contact Mood Description: Cheerful, Labile, Elated and Apprehensive Affect Description: Labile Patient Cognition Impaired: No Ability to Follow Directions: Fair Speech Pattern: Spontaneous Speech Memory Description: Episodic Impaired Hallucinations: Auditory and Visual Delusions: Grandiose and Present Perceptual Disturbances: Depersonalization and Derealization Thought Process: Illogical and Distracted Thought Content: positive for Circumstantial, positive for Tangential, positive for Disorganized, positive for Suicidal Ideation (denies) and positive for Homicidal Ideation (denies) Depressive Symptoms: Difficulty Concentrating Abnormal Motor Activity Signs and Symptoms: Restlessness Judgement: Poor Assessment & Plan Assessment & Plan (1) Schizoaffective disorder, bipolar type: Status: Acute Code(s): F25.0 - Schizoaffective disorder, bipolar type Plan 22 yo male, history of schizophrenia, presents after being off of medications since July 2022 with increase in delusions, grandiosity and lability of mood. Plan: CV 15 minute checks Diagnostics completed. EKG will repeat at some point Continue Olanzapine Depakote 250 mg bid Patient educated on: therapeutic strategies Informed Consent: does not understand Reason for continued inpatient stay Substantial Risk for: rapid decompensation Statement Statement: I have reviewed the history and physical and performed a pertinent examination on my patient. No changes have occurred unless specified. If the History and Physical was not performed prior to admission, the Hospitalist's service will be consulted for completing the admission physical. Time Spent With Patient Time: Total time managing care of this patient today ____ minutes.
[2023-02-09 18:00] VITALS: BP 149/82; PULSE 69; TEMP 35.7; O2SAT 98
[2023-02-09] MEDS: Divalproex Sodium 250 MG TABLET.DR PO (19:36)
[2023-02-09] MEDS: OLANZapine 10 MG TABLET PO (19:36)
[2023-02-10 08:00] VITALS: BP 123/64; PULSE 63; RESP 18; TEMP 36.8; O2SAT 99
[2023-02-10] MEDS: Divalproex Sodium 250 MG TABLET.DR PO ×2 (08:02→19:24)
[2023-02-10] MEDS: OLANZapine ODT 10 MG TAB.RAPDIS TRANSLINGU (11:16)
--- NOTE | 2023-02-10 15:46 | HO.PSYCHPN ---
Subjective Subjective Date of Service: 02/10/23 Reason For Visit: schizophrenia Subjective Notes: 3 Day Healthcare Proxy: No Guardianship: No Medical Problems Affecting Mental Status: No Interim History: Confrontive regarding discharge. Explained three day notice. Continues with spiritism preoccupation, delusional content. Olanzapine increased. Medication Compliance: Yes Side effects from medications: No Attending Groups: No Review of Systems Acute medical concerns: No Mental Status Exam Mental Status Exam Patient Appearance: Appropriate Patient Orientation: Person, Place and Time Level of Consciousness: Alert Patient Behavior: Talkative, Hyperactive, Restless, Wandering, Resistive to Care (ambivalent-does not need treatment, but knows he needs to comply to leave), Distractible and Good Eye Contact Mood Description: Cheerful, Labile, Elated and Apprehensive Affect Description: Labile Patient Cognition Impaired: No Ability to Follow Directions: Fair Speech Pattern: Spontaneous Speech Memory Description: Episodic Impaired Hallucinations: Auditory and Visual Delusions: Grandiose and Present Perceptual Disturbances: Depersonalization and Derealization Thought Process: Illogical and Distracted Thought Content: positive for Circumstantial, positive for Tangential, positive for Disorganized, positive for Suicidal Ideation (denies) and positive for Homicidal Ideation (denies) Depressive Symptoms: Difficulty Concentrating Abnormal Motor Activity Signs and Symptoms: Restlessness Judgement: Poor Diagnostics Vital Signs (24Hr): Vital Signs - 24 hr 02/09/23 18:00 02/10/23 08:00 Temperature 96.2 F L 98.2 F Pulse Rate 69 63 Respiratory Rate 18 Blood Pressure 149/82 H 123/64 Pulse Oximetry 98 99 Oxygen Delivery Method Room Air Room Air BMI result Body Mass Index 22.8 Labs 02/08/23 04:06 02/09/23 08:09 Labs: Laboratory Results - last 48 hr 02/09/23 08:09 Sodium 136 Potassium 3.4 Chloride 105 Carbon Dioxide 23 Anion Gap 11 L BUN 14 Creatinine 1.00 Estim Creat Clear Calc 111.5 Estimated GFR > 60 Fasting Glucose 86 Estimat Average Glucose 100 Hemoglobin A1c % 5.1 Calcium 9.2 Magnesium 2.2 Total Bilirubin 0.3 AST 27 ALT 21 Alkaline Phosphatase 68 Total Protein 7.5 Albumin 3.8 Triglycerides 83 Cholesterol 90 LDL Cholesterol, Calc 42 HDL Cholesterol 32 L Vitamin B12 450 Folate 9.4 TSH 0.73 Free T4 1.11 Medications Medications Current Medications Acetaminophen (Acetaminophen 325 Mg Tablet) 650 mg PO Q6H PRN PRN Reason: Headache/Pain Mild Scale (1-3) Al Hydroxide/Mg Hydroxide (Magnesium Hydrox/Alum Hydrox 30 Ml Oral.Susp) 30 ml PO Q6H PRN PRN Reason: Heartburn/Nausea Divalproex Sodium (Divalproex Sodium 250 Mg Tablet.Dr) 250 mg PO BID BARNEY Last Admin: 02/10/23 08:02 Dose: 250 mg Hydroxyzine HCl (Hydroxyzine Hcl 25 Mg Tablet) 25 mg PO Q6H PRN PRN Reason: Anxiety Magnesium Hydroxide (Milk Of Magnesia 30 Ml Oral.Susp) 30 ml PO DAILY PRN PRN Reason: Constipation Olanzapine (Olanzapine Odt 10 Mg Tab.Rapdis) 10 mg TRANSLINGU Q4H PRN PRN Reason: Anxiety, agitation Last Admin: 02/10/23 11:16 Dose: 10 mg Olanzapine (Olanzapine 10 Mg Tablet) 10 mg PO BEDTIME BARNEY Last Admin: 02/09/23 19:36 Dose: 10 mg Trazodone HCl (Trazodone Hcl 50 Mg Tablet) 50 mg PO BEDTIME MRX1 PRN PRN Reason: Insomnia Allergies Allergies Allergy/AdvReac Type Severity Reaction Status Date / Time No Known Allergies Allergy Verified 02/08/23 03:35 Assessment & Plan Assessment & Plan (1) Schizoaffective disorder, bipolar type: Status: Acute Code(s): F25.0 - Schizoaffective disorder, bipolar type Plan 22 yo male, history of schizophrenia, presents after being off of medications since July 2022 with increase in delusions, grandiosity and lability of mood. Plan: CV 15 minute checks Diagnostics completed. EKG will repeat at some point Continue Olanzapine Depakote 250 mg bid 02/10/23 Increase Olanzapine to 20 mg hs Patient educated on: therapeutic strategies and other Informed Consent: further education needed Reason for continued inpatient stay Substantial Risk for: rapid decompensation Time Spent With Patient Time: Total time managing care of this patient today ____ minutes.
[2023-02-10 18:00] VITALS: BP 135/76; PULSE 66; RESP 18; TEMP 35.9; O2SAT 100
[2023-02-10] MEDS: OLANZapine 10 MG TABLET 20 MG PO (19:24)
[2023-02-11] MEDS: Acetaminophen 325 MG TABLET 650 MG PO (06:36)
--- NOTE | 2023-02-11 10:04 | P.PNPSI_ITS ---
Subjective Subjective Date of Service: 02/11/23 Reason For Visit: schizophrenia Interim History: Patient asks to meet with this examiner and says I want to talk about my freedom. He is perseverative about discharge. He continues to appear internally preoccupied. When seen by staff he starts singing. He says he is writing a lot. Continues with hindu preoccupation, delusional content. Olanzapine increased. He is med adherent. He requested his medications to be switched to HS. Review of Systems Review of Systems Constitutional : No Fever, No Chills ENT/Mouth : No Ear Pain, No Nasal Congestion, No sore throat Eyes: No Eye Pain, No Swelling, No Redness Cardiovascular : No Chest Pain, No SOB Respiratory : No Cough, No Sputum, No Dyspnea Gastrointestinal : No Nausea, No Vomiting, No Diarrhea, No Hematochezia, No Melena Genitourinary : No Dysuria, No Urinary Frequency, No Hematuria Musculoskeletal : No Myalgias Skin : No Skin Lesions, No rash Neuro : No Weakness, No Numbness, No Paresthesias, No Dizziness, No Headache Psych : positive Anxiety, positive Depression, no SI/HI, pos AH/VH Heme/Lymph: No Lymphadenopathy Endocrine : No Polyuria, No Polydipsia All other systems reviewed and are negative Yes all other systems are reviewed and are negative (pt denies current sx) Reports behavioral changes Psychiatric: Reports abnormal sleep pattern, Reports behavioral changes, Reports difficulty concentrating, Reports auditory hallucinations, Reports paranoia, Reports visual hallucinations, Reports hallucinations, Reports homicidal ideation (denies) and Reports suicidal ideation (denies) Mental Status Exam Mental Status Exam Patient Appearance: Appropriate Patient Orientation: Person, Place and Time Level of Consciousness: Alert Patient Behavior: Talkative, Hyperactive, Restless, Wandering, Resistive to Care (ambivalent-does not need treatment, but knows he needs to comply to leave), Distractible and Good Eye Contact Mood Description: Cheerful, Labile, Elated and Apprehensive Affect Description: Labile Patient Cognition Impaired: No Ability to Follow Directions: Fair Speech Pattern: Spontaneous Speech Memory Description: Episodic Impaired Diagnostics Vital Signs (24Hr): Vital Signs - 24 hr 02/10/23 18:00 Temperature 96.6 F L Pulse Rate 66 Respiratory Rate 18 Blood Pressure 135/76 Pulse Oximetry 100 Oxygen Delivery Method Room Air BMI result Body Mass Index 22.8 Labs 02/08/23 04:06 02/09/23 08:09 Medications Medications Current Medications Acetaminophen (Acetaminophen 325 Mg Tablet) 650 mg PO Q6H PRN PRN Reason: Headache/Pain Mild Scale (1-3) Last Admin: 02/11/23 06:36 Dose: 650 mg Al Hydroxide/Mg Hydroxide (Magnesium Hydrox/Alum Hydrox 30 Ml Oral.Susp) 30 ml PO Q6H PRN PRN Reason: Heartburn/Nausea Divalproex Sodium (Divalproex Sodium 250 Mg Tablet.Dr) 250 mg PO BID [facility] Last Admin: 02/11/23 08:28 Dose: Not Given Hydroxyzine HCl (Hydroxyzine Hcl 25 Mg Tablet) 25 mg PO Q6H PRN PRN Reason: Anxiety Magnesium Hydroxide (Milk Of Magnesia 30 Ml Oral.Susp) 30 ml PO DAILY PRN PRN Reason: Constipation Olanzapine (Olanzapine Odt 10 Mg Tab.Rapdis) 10 mg TRANSLINGU Q4H PRN PRN Reason: Anxiety, agitation Last Admin: 02/10/23 11:16 Dose: 10 mg Olanzapine (Olanzapine 10 Mg Tablet) 20 mg PO BEDTIME BARNEY Last Admin: 02/10/23 19:24 Dose: 20 mg Trazodone HCl (Trazodone Hcl 50 Mg Tablet) 50 mg PO BEDTIME MRX1 PRN PRN Reason: Insomnia Allergies Allergies Allergy/AdvReac Type Severity Reaction Status Date / Time No Known Allergies Allergy Verified 02/08/23 03:35 Assessment & Plan Assessment & Plan (1) Schizoaffective disorder, bipolar type: Status: Acute Code(s): F25.0 - Schizoaffective disorder, bipolar type Plan 22 yo male, history of schizophrenia, presents after being off of medications since July 2022 with increase in delusions, grandiosity and lability of mood. Plan: CV 15 minute checks Diagnostics completed. EKG will repeat at some point Continue Olanzapine Depakote 250 mg bid 02/10/23 Increase Olanzapine to 20 mg hs 02/11: Continue treamtment plan. Reason for continued inpatient stay Substantial Risk for: inability to function and rapid decompensation Time Spent With Patient Time: Total time managing care of this patient today ____ minutes.
[2023-02-11] MEDS: Divalproex Sodium 250 MG TABLET.DR PO (12:48)
[2023-02-11 18:00] VITALS: BP 133/78; PULSE 62; RESP 18; TEMP 36.6; O2SAT 98
[2023-02-11] MEDS: Divalproex Sodium ER 500 MG TAB.ER.24H PO (20:09)
[2023-02-11] MEDS: traZODone HCL 50 MG TABLET PO (20:10)
[2023-02-11] MEDS: OLANZapine 10 MG TABLET 20 MG PO (20:10)
[2023-02-12 07:55] VITALS: BP 154/86; PULSE 68; RESP 18; TEMP 36.9; O2SAT 98
--- NOTE | 2023-02-12 08:10 | HO.PSYCHPN ---
Subjective Subjective Date of Service: 02/12/23 Reason For Visit: schizophrenia Interim History: Patient reports he is feeling well as long as I am not sleepy during the day and I take my medication at night I am good. He is tolerating current treatment. He denies SI. Continues to present with signs of internal preoccupation. 3 day expires tomorrow. Review of Systems Review of Systems Constitutional : No Fever, No Chills ENT/Mouth : No Ear Pain, No Nasal Congestion, No sore throat Eyes: No Eye Pain, No Swelling, No Redness Cardiovascular : No Chest Pain, No SOB Respiratory : No Cough, No Sputum, No Dyspnea Gastrointestinal : No Nausea, No Vomiting, No Diarrhea, No Hematochezia, No Melena Genitourinary : No Dysuria, No Urinary Frequency, No Hematuria Musculoskeletal : No Myalgias Skin : No Skin Lesions, No rash Neuro : No Weakness, No Numbness, No Paresthesias, No Dizziness, No Headache Psych : positive Anxiety, positive Depression, no SI/HI, pos AH/VH Heme/Lymph: No Lymphadenopathy Endocrine : No Polyuria, No Polydipsia All other systems reviewed and are negative Yes all other systems are reviewed and are negative (pt denies current sx) Reports behavioral changes Psychiatric: Reports abnormal sleep pattern, Reports behavioral changes, Reports difficulty concentrating, Reports auditory hallucinations, Reports paranoia, Reports visual hallucinations, Reports hallucinations, Reports homicidal ideation (denies) and Reports suicidal ideation (denies) Mental Status Exam Mental Status Exam Patient Appearance: Appropriate Patient Orientation: Person, Place and Time Level of Consciousness: Alert Patient Behavior: Talkative, Hyperactive, Restless, Wandering, Resistive to Care (ambivalent-does not need treatment, but knows he needs to comply to leave), Distractible and Good Eye Contact Mood Description: Cheerful, Labile, Elated and Apprehensive Affect Description: Labile Patient Cognition Impaired: No Ability to Follow Directions: Fair Speech Pattern: Spontaneous Speech Memory Description: Episodic Impaired Diagnostics Vital Signs (24Hr): Vital Signs - 24 hr 02/11/23 18:00 Temperature 97.8 F Pulse Rate 62 Respiratory Rate 18 Blood Pressure 133/78 Pulse Oximetry 98 Oxygen Delivery Method Room Air BMI result Body Mass Index 22.8 Labs 02/08/23 04:06 02/09/23 08:09 Medications Medications Current Medications Acetaminophen (Acetaminophen 325 Mg Tablet) 650 mg PO Q6H PRN PRN Reason: Headache/Pain Mild Scale (1-3) Last Admin: 02/11/23 06:36 Dose: 650 mg Al Hydroxide/Mg Hydroxide (Magnesium Hydrox/Alum Hydrox 30 Ml Oral.Susp) 30 ml PO Q6H PRN PRN Reason: Heartburn/Nausea Divalproex Sodium (Divalproex Sodium Er 500 Mg Tab.Er.24h) 500 mg PO BEDTIME BARNEY Last Admin: 02/11/23 20:09 Dose: 500 mg Hydroxyzine HCl (Hydroxyzine Hcl 25 Mg Tablet) 25 mg PO Q6H PRN PRN Reason: Anxiety Magnesium Hydroxide (Milk Of Magnesia 30 Ml Oral.Susp) 30 ml PO DAILY PRN PRN Reason: Constipation Olanzapine (Olanzapine Odt 10 Mg Tab.Rapdis) 10 mg TRANSLINGU Q4H PRN PRN Reason: Anxiety, agitation Last Admin: 02/10/23 11:16 Dose: 10 mg Olanzapine (Olanzapine 10 Mg Tablet) 20 mg PO BEDTIME BARNEY Last Admin: 02/11/23 20:10 Dose: 20 mg Trazodone HCl (Trazodone Hcl 50 Mg Tablet) 50 mg PO BEDTIME MRX1 PRN PRN Reason: Insomnia Last Admin: 02/11/23 20:10 Dose: 50 mg Allergies Allergies Allergy/AdvReac Type Severity Reaction Status Date / Time No Known Allergies Allergy Verified 02/08/23 03:35 Assessment & Plan Assessment & Plan (1) Schizoaffective disorder, bipolar type: Status: Acute Code(s): F25.0 - Schizoaffective disorder, bipolar type Plan 22 yo male, history of schizophrenia, presents after being off of medications since July 2022 with increase in delusions, grandiosity and lability of mood. Plan: CV 15 minute checks Diagnostics completed. EKG will repeat at some point Continue Olanzapine Depakote 250 mg bid 02/10/23 Increase Olanzapine to 20 mg hs 02/11: Continue treamtment plan. 02/12: Continue current plan. Reason for continued inpatient stay Substantial Risk for: inability to function and rapid decompensation Time Spent With Patient Time: Total time managing care of this patient today ____ minutes.
[2023-02-12] MEDS: Acetaminophen 325 MG TABLET 650 MG PO ×2 (12:17→22:48)
[2023-02-12] MEDS: OLANZapine 10 MG TABLET 20 MG PO (19:26)
[2023-02-12] MEDS: Divalproex Sodium ER 500 MG TAB.ER.24H PO (19:26)
[2023-02-12 19:40] VITALS: BP 136/78; PULSE 103; RESP 14; TEMP 37; O2SAT 96
[2023-02-13 08:20] VITALS: BP 115/77; PULSE 72; RESP 18; TEMP 36.7; O2SAT 100
--- NOTE | 2023-02-13 14:37 | P.DS_ITS ---
DS: Providers Provider Date of Service: 02/13/23 Date of admission: 02/08/23 14:06 Date of discharge: 02/13/23 Primary care physician: Unknown Physician Admitting clinician: Maryjane Thakur Attending physician on admission: Cristino Hummel Attending physician on discharge: Cristino Hummel Discharging clinician: Maryjane Thakur DS: Diagnosis Discharge Diagnosis (1) Schizoaffective disorder, bipolar type: Status: Acute DS: Medications Discharge Medications Home Medications: Previous Rx's Medication Instructions Recorded divalproex 500 mg tablet,extended 500 mg PO BEDTIME #15 tabs 02/13/23 release 24 hr olanzapine 10 mg tablet 20 mg (2 x 10 mg) PO BEDTIME #30 02/13/23 tabs Mental Status Exam Mental Status Exam Patient Appearance: Appropriate Patient Orientation: Person, Place and Time Level of Consciousness: Alert Patient Behavior: Talkative, Hyperactive, Restless, Wandering, Resistive to Care (ambivalent-does not need treatment, but knows he needs to comply to leave), Distractible and Good Eye Contact Mood Description: Cheerful, Labile, Elated and Apprehensive Affect Description: Labile Patient Cognition Impaired: No Ability to Follow Directions: Fair Speech Pattern: Spontaneous Speech Memory Description: Episodic Impaired Data Data Completed and Pending Completed studies during hospitalization [Text1]: 02/08/23 02/08/23 02/08/23 03:48 04:06 10:26 WBC 6.6 RBC 5.04 Hgb 14.9 Hct 43.6 MCV 86.5 MCH 29.6 MCHC 34.2 RDW 12.4 Plt Count 247 MPV 9.9 Immature Gran % (Auto) 0.2 Neut % (Auto) 41.6 L Lymph % (Auto) 44.6 H [place] % (Auto) 10.2 Eos % (Auto) 2.9 Baso % (Auto) 0.5 Lymph # (Auto) 2.9 [place] # (Auto) 0.7 Eos # (Auto) 0.2 Baso # (Auto) 0.0 Abs Immat Gran (auto) 0.01 Absolute Neuts (auto) 2.7 Absolute Nucleated RBC 0.000 Nucleated RBC % (auto) 0.0 Sodium 140 Potassium 3.6 Chloride 108 Carbon Dioxide 22 Anion Gap 14 BUN 14 Creatinine 1.15 Estim Creat Clear Calc 96.9 Estimated GFR > 60 Random Glucose 79 Fasting Glucose Estimat Average Glucose Hemoglobin A1c % Calcium 9.2 D Magnesium Total Bilirubin 0.4 AST 26 ALT 18 Alkaline Phosphatase 73 Total Protein 7.8 Albumin 4.0 Triglycerides Cholesterol LDL Cholesterol, Calc HDL Cholesterol Vitamin B12 Folate TSH Free T4 Urine Color Yellow Urine Appearance Clear Urine pH 7.0 Ur Specific [place] 1.010 Urine Protein Negative Urine Glucose (UA) Negative Urine Ketones Negative Urine Blood Negative Urine Nitrite Negative Ur Leukocyte Esterase Negative Urine RBC 0-2 Urine WBC 0-5 Ur Squamous Epith Cells 0-2 Urine Bacteria None Seen Hyaline Casts 0-2 Urine Opiates Screen Not Detected Urine Fentanyl Screen Not Detected Ur Barbiturates Screen Not Detected Ur Phencyclidine Scrn Not Detected Ur Amphetamines Screen Not Detected U Benzodiazepines Scrn Not Detected Urine Cocaine Screen Not Detected U Marijuana (THC) Screen Not Detected Ethyl Alcohol < 10 COVID-19 ([facility]) Negative COVID-19 Clin Com See Note 02/09/23 08:09 WBC RBC Hgb Hct MCV MCH MCHC RDW Plt Count MPV Immature Gran % (Auto) Neut % (Auto) Lymph % (Auto) [place] % (Auto) Eos % (Auto) Baso % (Auto) Lymph # (Auto) [place] # (Auto) Eos # (Auto) Baso # (Auto) Abs Immat Gran (auto) Absolute Neuts (auto) Absolute Nucleated RBC Nucleated RBC % (auto) Sodium 136 Potassium 3.4 Chloride 105 Carbon Dioxide 23 Anion Gap 11 L BUN 14 Creatinine 1.00 Estim Creat Clear Calc 111.5 Estimated GFR > 60 Random Glucose Fasting Glucose 86 Estimat Average Glucose 100 Hemoglobin A1c % 5.1 Calcium 9.2 Magnesium 2.2 Total Bilirubin 0.3 AST 27 ALT 21 Alkaline Phosphatase 68 Total Protein 7.5 Albumin 3.8 Triglycerides 83 Cholesterol 90 LDL Cholesterol, Calc 42 HDL Cholesterol 32 L Vitamin B12 450 Folate 9.4 TSH 0.73 Free T4 1.11 Urine Color Urine Appearance Urine pH Ur Specific [place] Urine Protein Urine Glucose (UA) Urine Ketones Urine Blood Urine Nitrite Ur Leukocyte Esterase Urine RBC Urine WBC Ur Squamous Epith Cells Urine Bacteria Hyaline Casts Urine Opiates Screen Urine Fentanyl Screen Ur Barbiturates Screen Ur Phencyclidine Scrn Ur Amphetamines Screen U Benzodiazepines Scrn Urine Cocaine Screen U Marijuana (THC) Screen Ethyl Alcohol COVID-19 ([facility]) COVID-19 Clin Com DS: Summary Hospital Course Hospital Course: Admission to adult psychiatry for exacerbation of schizophrenia. Pt reports being off medications since July 2022. He reports a few traumatic experiences when admitted to [facility] and is fearful of admission, signing a three day notice. He reports he will take medications in order to discharge, however, may decide to stop them again. Regime was reviewed, adjusted and re-enstated. Pt was offered full milieu treatment. The team attempted to make positive alliance with him in hopes of restructuring his treatment experience. He did report an improved experience with this admission. He is aware he may return if he is in need of urgent treatment. He discharged on the three day notice to out patient care. Time spent discussing smoking cessation with patient: 3 to 10 minutes Status at Discharge Functional status at discharge: independent ambulation Overall status at discharge: patient is progressing back to baseline Time Spent with Patient Time attestation: Total time managing care of this patient today ____ minutes. Time spent: Greater than 30 minutes Discharge Plan Discharge Anticipated Discharge Date/Time: 02/13/23 12:24 Patient Disposition: Home, Self-Care Discharge Diagnosis: Schizoaffective disorder Referrals: [facility] [Other] - 1 Week (If you have questions or concerns, please utilize the walk in center or call them at the above number. ) [facility] : Dr. Rubi [Other] - 1 Week (Patient referred for hospital discharge appointment with former outpatient provider. Patient should follow-up with practice regarding discharge appointment as they did not respond prior to discharge ) Discharge Medications: New olanzapine 10 mg Tablet 20 mg PO BEDTIME Qty: 30 0RF divalproex 500 mg Tablet Extended Release 24 Hr 500 mg PO BEDTIME Qty: 15 1RF Discharge Orders: Discharge Order (Routine); Ordered 02/13/23 Ordered By: Maryjane Thakur Diet: Advance to usual diet Activity on Discharge: As tolerated Stand Alone Forms: Patient Portal Discharge page, Community Support Care Plan Goals: Mood and Behavioral Stabilization Health Concerns: Mood and Behavioral Stabilization Plan of Treatment: Attend scheduled appointments Take medications as directed Call your primary care physician to schedule lab work, including a Depakote Level and a complete blood count. Talk with your out patient prescriber regarding injectable medication as your family has requested. As you filed a three day notice on admission, we did not have enough time to do a trial with you during this brief time. Assessment: Pt discharges today on a three day notice of intent. Discharge Date/Time: 02/13/23 11:59
== END 2023-02-13 11:59 | disposition home or self-care (01) | DRG 750 ==
LOC: HO.ED 06:58 → HO.PM5 14:15
PROVIDERS: Emergency Medicine; Admitting Provider Clinical Nurse Specialist Psychiatric/Mental Health, Adult; Emergency Provider Emergency Medicine Emergency Medical Services; Visit Provider Clinical Nurse Specialist Psychiatric/Mental Health, Adult
DX: F25.0 Schizoaffective disorder, bipolar type (principal); Z20.822 Contact with and (suspected) exposure to COVID-19; Z79.899 Other long term (current) drug therapy
CPT/HCPCS: 36415; 80053; 80061; 80307; 81001; 82607; 82746; 83036; 83735; 84439; 84443; 85025; 87635; 93005; 99285; S9485

== ENCOUNTER → 2023-02-08 14:06 | Outpatient (BNV) | payer OTHER, SELFPAY | PROVIDERS: Admitting Provider Clinical Nurse Specialist Psychiatric/Mental Health, Adult; Emergency Provider Emergency Medicine Emergency Medical Services; Visit Provider Clinical Nurse Specialist Psychiatric/Mental Health, Adult | DX: F25.0 Schizoaffective disorder, bipolar type (principal) | CPT/HCPCS: 90792; 99231; 99232; 99239 ==

== ENCOUNTER 2023-11-17 04:16 | Inpatient (IN) | payer MEDICAID, SELFPAY ==
[2023-11-17 04:20] VITALS: BP 141/86; BP 162/100; PULSE 66; PULSE 83; RESP 17; TEMP 36.8; O2SAT 100; O2SAT 98; BMI 25.1
--- NOTE | 2023-11-17 04:47 | PC.NURSE ---
pt very restless in room, jump around, doing pushups, praying on the floor. unable to stay still
[2023-11-17 05:00] LABS: Appearance Urine Clear; Color Urine Yellow; Glucose Urine UA Negative (Negative); Leukocyte Esterase Urine Negative (Negative); Nitrite Urine Negative (Negative); Urine Blood Negative (Negative); Urine Ketones Negative (Negative); Urine Protein Negative (Neg-Trace)
[2023-11-17 05:02] LABS: Amphetamine Screen Urine Not Detected (Not Detect); Barbiturates, Urine Not Detected (Not Detect); Benzodiazepines Screen Urine Not Detected (Not Detect); Buprenorphine Scr Not Detected (Not Detect); Cannabinoid Screen Urine Not Detected (Not Detect); Cocaine Screen Urine Not Detected (Not Detect); Fentanyl, urine Not Detected (Not Detect); Methadone Screen, Urine Not Detected (Not Detect); Opiate Screen Urine Not Detected (Not Detect); Oxycodone Screen Urine Not Detected (Not Detect); Phencyclidine Screen Urine Not Detected (Not Detect)
[2023-11-17] MEDS: OLANZapine 10 MG TABLET 20 MG PO (05:22)
[2023-11-17] MEDS: LORazepam 1 MG TABLET 2 MG PO (05:22)
--- NOTE | 2023-11-17 05:23 | PC.NURSE ---
pt cooperative with medical library assistant
--- NOTE | 2023-11-17 05:24 | PC.NURSE ---
med rec: pt not talking any home meds
[2023-11-17 05:45] LABS: MANUAL DIFF FLAG NO
[2023-11-17 05:47] LABS: Basophils Percent Auto 0.3 % (0-2); Eosinophils Absolute Auto 0.1 X10*3/uL (0.0-0.4); Eosinophils Percent Auto 1.9 % (0-4); Hematocrit 42.8 % (42.0-52.0); Hemoglobin 14.9 g/dl (14.0-18.0); Imm Gran Abs Auto 0.01 X10*3/uL (0.00-0.03); Imm Gran Pct Auto 0.2 % (0.0-0.4); Lymphocytes Absolute Auto 1.8 X10*3/uL (1.2-4.9); Lymphocytes Percent Auto 30.5 % (20-40); Mean Corpuscular HGB Conc 34.8 g/dl (31.0-36.0); Mean Corpuscular Hemoglobin 30.2 pg (27.0-33.0); Mean Corpuscular Volume 86.8 fL (80.0-98.0); Mean Platelet Volume 9.6 fL (9.4-12.4); Monocytes Absolute Auto 0.5 X10*3/uL (0.1-1.2); Monocytes Percent Auto 9.3 % (2-11); Neutrophils Absolute Auto 3.4 x10*3/uL (2.0-8.3); Neutrophils Percent Auto 57.8 % (45-73); Platelet Count 229 X10*3/uL (160-400); Red Blood Count 4.93 X10*6/uL (4.60-5.80); Red Cell Distribution Width 12.7 % (11.0-16.0); White Blood Count 5.8 X10*3/uL (4.8-10.8)
[2023-11-17 06:04] LABS: Alanine Aminotransferase 19 U/L (0-40); Alkaline Phosphatase 81 U/L (39-117); Anion Gap 11 (12-20); Aspartate Amino Transferase 23 U/L (5-37); Bilirubin Total 0.5 mg/dL (0.0-1.0); Blood Urea Nitrogen 13 mg/dL (9-16); Calcium 9.4 mg/dL (8.4-10.2); Carbon Dioxide 25 mmol/L (22-29); Chloride 106 mmol/L (96-108); Creatinine Clr Calc Pharmacy 98.3; Estimated Glomerular Filt Rate > 60; Ethanol < 10 mg/dL; Glucose Random 93 mg/dL (60-115); Potassium 3.8 mmol/L (3.3-5.1); Sodium 138 mmol/L (135-145); Total Protein 7.6 g/dL (6.5-8.0)
--- NOTE | 2023-11-17 06:20 | PC.NURSE ---
pt now resting comfortably in bed with eyes closed, breathing even and unlabored, no apparent distress noted at this time.
--- NOTE | 2023-11-17 07:00 | ED.PSYCH ---
HPI - Psych General Chief Complaint: Psychiatric Symptoms Stated Complaint: crisis Time Seen by Provider: 11/17/23 05:14 Source: patient Mode of arrival: ambulatory Limitations: no limitations History of Present Illness ED Provider: daniela GLORIA Narrative: Patient with history of schizoaffective disorder not taking his medications for a while brought by his ems for abnormal behavior thinking there are evil spirits in the house no substance abuse no alcohol use hearing voices no SI or HI Related Data Allergies Allergy/AdvReac Type Severity Reaction Status Date / Time No Known Allergies Allergy Verified 11/17/23 04:22 Review of Systems Review of Systems: Yes all other systems are reviewed and are negative PMFSH Past Medical History Medical History Schizoaffective disorder, bipolar type Anxiety Social History Social History Household Members: Family Household Members Other:: mother and brother Housing: Apartment Do you presently have visiting nurse or other home services: No Alcohol intake: unknown Patient Tobacco Use Status: Never used Tobacco Smoked in Last 30 Days: No Use of substances other than those prescribed or required for medical reasons: No Substance Use Type: Marijuana and Caffiene Advance Directives: No Advance Directives Information Provided: No service: No Sexual orientation: Straight/Heterosexual Physical Exam Vital Signs: Vital Signs: Last Vital Signs Temp 98.2 F 11/17/23 04:20 Pulse 66 11/17/23 04:20 Resp 17 11/17/23 04:20 BP 141/86 H 11/17/23 04:20 Pulse Ox 98 11/17/23 04:20 O2 Del Method Room Air 11/17/23 04:20 BMI result Body Mass Index 25.1 Appearance: Alert. Oriented X3. No acute distress. Eyes: PERRLA, No Nystagmus ENT: Pharynx normal. Oral Mucosa moist Neck: Normal inspection. Neck supple. CVS: Normal heart rate and rhythm. Pulses normal. Respiratory: No respiratory distress. Equal air entry bilateral, no wheezing/rales/rhonchi Abdomen: Soft and nontender. Bowel sounds are present, no mass palpable, no CVA tenderness Skin: Skin warm and dry. Normal skin color. Normal skin turgor. Extremities: No lower extremity edema. No calf tenderness psych: Nonsensical talking no SI or HI hearing voices Neuro: Oriented X 3. No motor deficit. No sensory deficit.No cerebellar signs , cranial nerves II-XII intact Medications Administered Discontinued Medications Generic Name Dose Route Start Last Admin Trade Name Alexa PRN Reason Stop Dose Admin Lorazepam 2 mg 11/17/23 05:14 11/17/23 05:22 Lorazepam 1 Mg Tablet PO 11/17/23 05:15 2 mg ONCE ONE Administration Olanzapine 20 mg 11/17/23 05:14 11/17/23 05:22 Olanzapine 10 Mg Tablet PO 11/17/23 05:15 20 mg ONCE ONE Administration Medical Decision Making Medical Decision Making MDM Narrative: Patient with history of schizoaffective disorder not taking his medication came in with abnormal behavior will get care team consult for medication management Lab Data MDM Lab Attestation statement: I reviewed the patient's lab results. 11/17/23 05:35 11/17/23 05:35 Labs: Lab Results 11/17/23 11/17/23 Range/Units 04:44 05:35 WBC 5.8 (4.8-10.8) X10*3/uL RBC 4.93 (4.60-5.80) X10*6/uL Hgb 14.9 (14.0-18.0) g/dl Hct 42.8 (42.0-52.0) % MCV 86.8 (80.0-98.0) fL MCH 30.2 (27.0-33.0) pg MCHC 34.8 (31.0-36.0) g/dl RDW 12.7 (11.0-16.0) % Plt Count 229 (160-400) X10*3/uL MPV 9.6 (9.4-12.4) fL Immature Gran % (Auto) 0.2 (0.0-0.4) % Neut % (Auto) 57.8 (45-73) % Lymph % (Auto) 30.5 (20-40) % [place] % (Auto) 9.3 (2-11) % Eos % (Auto) 1.9 (0-4) % Baso % (Auto) 0.3 (0-2) % Lymph # (Auto) 1.8 (1.2-4.9) X10*3/uL [place] # (Auto) 0.5 (0.1-1.2) X10*3/uL Eos # (Auto) 0.1 (0.0-0.4) X10*3/uL Baso # (Auto) 0.0 (0.0-0.2) X10*3/uL Abs Immat Gran (auto) 0.01 (0.00-0.03) X10*3/uL Absolute Neuts (auto) 3.4 (2.0-8.3) x10*3/uL Absolute Nucleated RBC 0.000 (0.0-0.012) X10*3/uL Nucleated RBC % (auto) 0.0 (0.0-0.2) /100WBC Sodium 138 (135-145) mmol/L Potassium 3.8 (3.3-5.1) mmol/L Chloride 106 (96-108) mmol/L Carbon Dioxide 25 (22-29) mmol/L Anion Gap 11 L (12-20) BUN 13 (9-16) mg/dL Creatinine 1.13 (0.5-1.4) mg/dL Estim Creat Clear Calc 98.3 Estimated GFR > 60 Random Glucose 93 (60-115) mg/dL Calcium 9.4 (8.4-10.2) mg/dL Total Bilirubin 0.5 (0.0-1.0) mg/dL AST 23 (5-37) U/L ALT 19 (0-40) U/L Alkaline Phosphatase 81 (39-117) U/L Total Protein 7.6 (6.5-8.0) g/dL Albumin 4.0 (3.5-5.0) g/dL Urine Color Yellow Urine Appearance Clear Urine pH 6.0 (5.0-9.0) Ur Specific [place] 1.010 (1.005-1.025) Urine Protein Negative (Neg-Trace) mg/dL Urine Glucose (UA) Negative (Negative) mg/dL Urine Ketones Negative (Negative) mg/dL Urine Blood Negative (Negative) Urine Nitrite Negative (Negative) Ur Leukocyte Esterase Negative (Negative) Urine Opiates Screen Not Detected (Not Detect) Ur Buprenorphine Scrn Not Detected (Not Detect) ng/mL Ur Oxycodone Screen Not Detected (Not Detect) ng/mL Urine Methadone Screen Not Detected (Not Detect) ng/mL Urine Fentanyl Screen Not Detected (Not Detect) Ur Barbiturates Screen Not Detected (Not Detect) Ur Phencyclidine Scrn Not Detected (Not Detect) Ur Amphetamines Screen Not Detected (Not Detect) U Benzodiazepines Scrn Not Detected (Not Detect) Urine Cocaine Screen Not Detected (Not Detect) U Marijuana (THC) Screen Not Detected (Not Detect) Ethyl Alcohol < 10 mg/dL Discharge Plan Discharge Clinical Impression: Schizoaffective disorder, bipolar type Patient Disposition: Still a Patient Interventions: [place]-Suicide Risk Severity Scale Last Done: 11/17/23 05:07 Print Language: Tuvaluan
--- NOTE | 2023-11-17 07:05 | PC.NURSE ---
Assumed care of patient at 0645. Patient is observed resting quietly in their room. No signs of distress observed, breathing is even and unlabored.
[2023-11-17 18:59] VITALS: BP 125/85; PULSE 80; RESP 16; TEMP 36.4; O2SAT 96
[2023-11-17 19:03] VITALS: BMI 24.3
--- NOTE | 2023-11-17 19:05 | PC.ADMIT ---
Nikhil Mcconnell was admitted to [facility] on 11/17/2023 18:00 from POD on a 12B for safety and containment after feeling as if there are ?evil spirits in his house?. Other precipitants of this admission include medication nonadherence, not sleeping for days, and feeling irrational. During time of admission pt is self-dialoguing at times, laughing inappropriately, and having overall difficulty staying on topic/following discussion. Pt religiously preoccupied, frequently referring to the bible and the zoroastrian pentecostalism. Pt reports he has ?Bipolar?. During our conversation pt denied depression/anxiety, denied SI/HI, and reported ?I?m just here for the adventure. I may take meds but when I go home I won?t take them. I?m not going to lie to you, I don't believe in medications. I will take something for sleep though?. Pt did endorse sleeplessness last week only sleeping 3 hrs per night. Pt did endorse that he thinks there?s evil spirits in his house. Appetite is reported to be good. Pt ambulates independently w/ steady gait and is independent with ADLs. No substance use whatsoever reported. Pt on 15 min checks, psych + structured groups.
[2023-11-17] MEDS: OLANZapine 10 MG TABLET PO (20:56)
[2023-11-18 07:20] VITALS: BP 136/93; PULSE 71; RESP 14; TEMP 36.8; O2SAT 99
--- NOTE | 2023-11-18 08:01 | HO.PSYADMNOT ---
HPI Date of Service: 11/18/23 Chief Complaint: psychosis Sources of Information: patient interviewed, chart reviewed and crisis/core team assessment reviewed HPI Subjective Notes: [place] Warning and Section 12B Healthcare Proxy: No Guardianship: No Medical Problems Affecting Mental Status: No Narrative: Nikhil is a 23-year-old , single, employed (works at a [employer] close), man who lives with his mother. Has a history of schizoaffective disorder with several psychiatric hospitalizations. He was last in this hospital in the fall of 2022. He has historically been medication noncompliant on an outpatient basis. According to his mother he has been sleeping poorly, is expansive and his mood, hyper jew and religiously preoccupied. He has little to no insight into his illness. He denies any auditory or visual hallucinations. He is denying any substance use or abuse. He denies any suicidal ideations. Denies any history of violence. He can not give me any information about past medications other than possibly having been on Zyprexa and Trileptal. He does not follow any treatment on an outpatient basis. He is here on a 12b. He is open to taking medications while here but states that he would not take him on the outside. Past Psychiatric History: IP: A few [place], [facility], OP: No, I did not go Trials: Yes, denies SE, however family tells team he had had SE Medical Evaluation Reviewed: Yes (rev'd) [facility] Medical History Schizoaffective disorder, bipolar type Anxiety Family History: affirms Social History: I am born from the [facility] being Nikhil is the only child from his biological parents who were never . His father lives in [place] and has little to no contact with him. He grew up with his mother. Each of his parents have 3 other children from other relationships. He did finish high school and states that he is in college at [employer]. He has had no marriages no children. He denies any history of abuse. Substance History: Denies Trauma History: Life has been my trauma Diagnostics Vital Signs (24Hr): Vital Signs - 24 hr 11/17/23 18:59 Temperature 97.5 F Pulse Rate 80 Respiratory Rate 16 Blood Pressure 125/85 Pulse Oximetry 96 Oxygen Delivery Method Room Air BMI result Body Mass Index 24.3 Labs 11/17/23 05:35 11/17/23 05:35 Labs: Laboratory Results - last 48 hr 11/17/23 11/17/23 04:44 05:35 WBC 5.8 RBC 4.93 Hgb 14.9 Hct 42.8 MCV 86.8 MCH 30.2 MCHC 34.8 RDW 12.7 Plt Count 229 MPV 9.6 Immature Gran % (Auto) 0.2 Neut % (Auto) 57.8 Lymph % (Auto) 30.5 [place] % (Auto) 9.3 Eos % (Auto) 1.9 Baso % (Auto) 0.3 Lymph # (Auto) 1.8 [place] # (Auto) 0.5 Eos # (Auto) 0.1 Baso # (Auto) 0.0 Abs Immat Gran (auto) 0.01 Absolute Neuts (auto) 3.4 Absolute Nucleated RBC 0.000 Nucleated RBC % (auto) 0.0 Sodium 138 Potassium 3.8 Chloride 106 Carbon Dioxide 25 Anion Gap 11 L BUN 13 Creatinine 1.13 Estim Creat Clear Calc 98.3 Estimated GFR > 60 Random Glucose 93 Calcium 9.4 Total Bilirubin 0.5 AST 23 ALT 19 Alkaline Phosphatase 81 Total Protein 7.6 Albumin 4.0 Urine Color Yellow Urine Appearance Clear Urine pH 6.0 Ur Specific [place] 1.010 Urine Protein Negative Urine Glucose (UA) Negative Urine Ketones Negative Urine Blood Negative Urine Nitrite Negative Ur Leukocyte Esterase Negative Urine Opiates Screen Not Detected Ur Buprenorphine Scrn Not Detected Ur Oxycodone Screen Not Detected Urine Methadone Screen Not Detected Urine Fentanyl Screen Not Detected Ur Barbiturates Screen Not Detected Ur Phencyclidine Scrn Not Detected Ur Amphetamines Screen Not Detected U Benzodiazepines Scrn Not Detected Urine Cocaine Screen Not Detected U Marijuana (THC) Screen Not Detected Ethyl Alcohol < 10 Meds/Allergies Meds Home Medications ?Medication ?Instructions ?Recorded ?Confirmed ?Type cetirizine 10 mg tablet 10 mg PO DAILY 11/17/23 11/17/23 History Allergies Allergies Allergy/AdvReac Type Severity Reaction Status Date / Time No Known Allergies Allergy Verified 11/17/23 04:22 Mental Status Exam Mental Status Exam Narrative: Jagruti was seen the morning after his admission. He is alert, oriented x3. Speech is somewhat pressured. Moderate eye contact. Affect is appropriate and varied. Mood is expansive. He has some self dialogue but denies any auditory or visual hallucinations. No overt delusions. Thought processes are tangential, disorganized with flight of ideas. No SI/HI. Judgment is marginal. He has little to no insight. No musculoskeletal difficulties. He is able to move all limbs. Assessment & Plan Assessment & Plan (1) Schizoaffective disorder, bipolar type: Status: Acute Code(s): F25.0 - Schizoaffective disorder, bipolar type Plan Nikhil meets criteria for IP LOC for treatment and safety. Admission workup to be done. Labs were reviewed. Tox screen was negative. He is admitted on a 12b status. Zyprexa 10 mg q.h.s. and Trileptal 300 mg q.h.s. were initiated. He was requesting to be discharged today and when I told him that was not an option he was less cooperative and somewhat angry but in control. Outpatient referral to be made even though he is likely to be noncompliant Patient educated on: diagnosis, medication risk/benefits and therapeutic strategies Reason for continued inpatient stay Substantial Risk for: rapid decompensation Statement Statement: I have reviewed the history and physical and performed a pertinent examination on my patient. No changes have occurred unless specified. If the History and Physical was not performed prior to admission, the Hospitalist's service will be consulted for completing the admission physical. Time Spent With Patient Time: Total time managing care of this patient today ____ minutes.
[2023-11-18 08:58] LABS: Alanine Aminotransferase 19 U/L (0-40); Albumin Level 4.2 g/dL (3.5-5.0); Alkaline Phosphatase 84 U/L (39-117); Anion Gap 11 (12-20); Aspartate Amino Transferase 22 U/L (5-37); Bilirubin Total 0.3 mg/dL (0.0-1.0); Blood Urea Nitrogen 14 mg/dL (9-16); Calcium 9.5 mg/dL (8.4-10.2); Carbon Dioxide 27 mmol/L (22-29); Chloride 104 mmol/L (96-108); Cholesterol 97 mg/dL (<200); Creatinine Clr Calc Pharmacy 104.8; Estimated Glomerular Filt Rate > 60; Glucose Fasting 98 mg/dL (60-99); HDL Cholesterol 38 mg/dL (>40); LDL Cholesterol Calculated 49 mg/dL (<100); Potassium 3.9 mmol/L (3.3-5.1); Sodium 138 mmol/L (135-145); Total Protein 7.8 g/dL (6.5-8.0); Triglycerides 50 mg/dL (<150)
[2023-11-18] MEDS: Sodium Chloride 0.65 % Nasal 44 ML SPRBTL 1 SPRAY NOSTRIL-B (12:07)
[2023-11-18 20:00] VITALS: BP 146/88; PULSE 79; RESP 16; TEMP 36.8; O2SAT 98
[2023-11-18] MEDS: OLANZapine 10 MG TABLET PO (22:28)
[2023-11-18] MEDS: OXcarbazepine 300 MG TABLET PO (22:29)
[2023-11-19 08:00] VITALS: BP 139/88; PULSE 65; RESP 16; TEMP 36.8; O2SAT 100
--- NOTE | 2023-11-19 08:46 | HO.PSYCHPN ---
Subjective Subjective Date of Service: 11/19/23 Reason For Visit: psychosis Subjective Notes: Section 12B Interim History: Patient was seen and discussed in rounds today. Records and plans were reviewed. He continues to be exhibiting signs of hypomania some mood lability and wanting to be discharged. He has not been showing any behavioral problems. He is redirectable. Has been medication compliant. He denies any side effects. I will raise his Trileptal to 450 mg. No dangerous behaviors. No SI. Review of Systems Review of Systems Yes all other systems are reviewed and are negative Mental Status Exam Mental Status Exam Narrative: In today's visit he is alert, pleasant and interactive. Speech is less pressured. Overt delusions. Continues to be religiously preoccupied. Denies AVH. No SI. Cognitively he is disorganized. Judgment is marginal Diagnostics Vital Signs (24Hr): Vital Signs - 24 hr 11/18/23 20:00 11/19/23 08:00 Temperature 98.2 F 98.3 F Pulse Rate 79 65 Respiratory Rate 16 16 Blood Pressure 146/88 H 139/88 Pulse Oximetry 98 100 Oxygen Delivery Method Room Air Room Air BMI result Body Mass Index 24.3 Labs 11/17/23 05:35 11/18/23 08:02 Labs: Laboratory Results - last 48 hr 11/18/23 08:02 Sodium 138 Potassium 3.9 Chloride 104 Carbon Dioxide 27 Anion Gap 11 L BUN 14 Creatinine 1.06 Estim Creat Clear Calc 104.8 Estimated GFR > 60 Fasting Glucose 98 Calcium 9.5 Total Bilirubin 0.3 AST 22 ALT 19 Alkaline Phosphatase 84 Total Protein 7.8 Albumin 4.2 Triglycerides 50 Cholesterol 97 LDL Cholesterol, Calc 49 HDL Cholesterol 38 L Medications Medications Current Medications Acetaminophen (Acetaminophen 325 Mg Tablet) 650 mg PO Q6H PRN PRN Reason: Headache/Pain Mild Scale (1-3) Al Hydroxide/Mg Hydroxide (Magnesium Hydrox/Alum Hydrox 30 Ml Oral.Susp) 30 ml PO Q6H PRN PRN Reason: Heartburn/Nausea Lorazepam (Lorazepam 1 Mg Tablet) 1 mg PO Q6H PRN PRN Reason: anxiety/restlessness Magnesium Hydroxide (Milk Of Magnesia 30 Ml Oral.Susp) 30 ml PO DAILY PRN PRN Reason: Constipation Olanzapine (Olanzapine 10 Mg Tablet) 10 mg PO BEDTIME BARNEY Last Admin: 11/18/23 22:28 Dose: 10 mg Olanzapine (Olanzapine 5 Mg Tablet) 5 mg PO BID PRN PRN Reason: Psychosis Oxcarbazepine (Oxcarbazepine 300 Mg Tablet) 300 mg PO BEDTIME BARNEY Last Admin: 11/18/23 22:29 Dose: 300 mg Sodium Chloride (Sodium Chloride 0.65 % Nasal 44 Ml Sprbtl) 1 spray NOSTRIL-B Q1H PRN PRN Reason: Congestion Last Admin: 11/18/23 12:07 Dose: 1 spray Allergies Allergies Allergy/AdvReac Type Severity Reaction Status Date / Time No Known Allergies Allergy Verified 11/17/23 04:22 Assessment & Plan Assessment & Plan (1) Schizoaffective disorder, bipolar type: Status: Acute Code(s): F25.0 - Schizoaffective disorder, bipolar type Plan Nikhil meets criteria for IP LOC for treatment and safety. Admission workup to be done. Labs were reviewed. Tox screen was negative. He is admitted on a 12b status. Zyprexa 10 mg q.h.s. and Trileptal 300 mg q.h.s. were initiated. He was requesting to be discharged today and when I told him that was not an option he was less cooperative and somewhat angry but in control. Outpatient referral to be made even though he is likely to be noncompliant 11/18: Continue current regimen and plans. Trileptal was increased to 450 mg Reason for continued inpatient stay Substantial Risk for: med/psych decompensation Time Spent With Patient Time: Total time managing care of this patient today ____ minutes.
[2023-11-19] MEDS: Multivitamin TABLET 1 TAB PO (12:04)
[2023-11-19] MEDS: Sodium Chloride 0.65 % Nasal 44 ML SPRBTL 1 SPRAY NOSTRIL-B (14:52)
[2023-11-19 19:41] VITALS: BP 145/79; PULSE 72; RESP 16; TEMP 36.8; O2SAT 98
[2023-11-19] MEDS: OLANZapine 10 MG TABLET PO (20:02)
[2023-11-19] MEDS: OXcarbazepine 150 MG TABLET 450 MG PO (20:02)
--- NOTE | 2023-11-20 04:07 | PC.NURSE ---
Pt approached TW around 0330, stating that he has been sleep walking, and stating that is why he does not like to take medications. Per [facility], pt had appeared to be asleep until waking at approx. 0300. He went on to say that he will not be taking any more medications, can you please tell the doctor that Nikhil is not going to take any more meds, I will not be a slave to medications .
[2023-11-20 07:35] VITALS: BP 146/78; PULSE 76; RESP 16; TEMP 36.9; O2SAT 98
[2023-11-20] MEDS: Multivitamin TABLET 1 TAB PO (08:56)
[2023-11-20] MEDS: Sodium Chloride 0.65 % Nasal 44 ML SPRBTL 1 SPRAY NOSTRIL-B (08:58)
--- NOTE | 2023-11-20 12:10 | HO.PSYCHPN ---
Subjective Subjective Date of Service: 11/20/23 Reason For Visit: psychosis Subjective Notes: Section 12B Interim History: Reviewed with Dr. Hummel. Patient reports feeling good today; pt stated, I understand the science behind why doctors say that I have Bipolar d/o but I don't agree with them. I don't like taking medication because I feel like I don't have control over my body . Section 12B up on 11/22/23. Pt denies SI/HI/VH/AH. Medication Compliance: Yes Side effects from medications: No Attending Groups: Yes Review of Systems Constitutional: Reports as per HPI Eyes: Reports as per HPI Reports as per HPI Cardiovascular: Reports as per HPI Respiratory: Reports as per HPI Gastrointestinal: Reports as per HPI Genitourinary: Reports as per HPI Musculoskeletal: Reports as per HPI Skin/Breast: Reports as per HPI Reports as per HPI Psychiatric: Reports as per HPI Endocrine: Reports as per HPI Hematologic/Lymphatic: Reports as per HPI Allergic/Immunologic: Reports as per HPI Mental Status Exam Mental Status Exam Narrative: Pt is alert and oriented; behavior is cooperative and calm; dressed in casual attire; mood is described as good ; eye contact appropriate; Speech is normal rate, volume and not pressured; thought process is organized; Thought content is on discharge; denies SI/HI/VH/AH. Diagnostics Vital Signs (24Hr): Vital Signs - 24 hr 11/19/23 19:41 11/20/23 07:35 Temperature 98.3 F 98.4 F Pulse Rate 72 76 Respiratory Rate 16 16 Blood Pressure 145/79 H 146/78 H Pulse Oximetry 98 98 Oxygen Delivery Method Room Air Room Air BMI result Body Mass Index 24.3 Labs 11/17/23 05:35 11/18/23 08:02 Medications Medications Current Medications Acetaminophen (Acetaminophen 325 Mg Tablet) 650 mg PO Q6H PRN PRN Reason: Headache/Pain Mild Scale (1-3) Al Hydroxide/Mg Hydroxide (Magnesium Hydrox/Alum Hydrox 30 Ml Oral.Susp) 30 ml PO Q6H PRN PRN Reason: Heartburn/Nausea Lorazepam (Lorazepam 1 Mg Tablet) 1 mg PO Q6H PRN PRN Reason: anxiety/restlessness Magnesium Hydroxide (Milk Of Magnesia 30 Ml Oral.Susp) 30 ml PO DAILY PRN PRN Reason: Constipation Multivitamins/Vitamin C (Multivitamin Tablet) 1 tab PO DAILY BARNEY Last Admin: 11/20/23 08:56 Dose: 1 tab Olanzapine (Olanzapine 10 Mg Tablet) 10 mg PO BEDTIME BARNEY Last Admin: 11/19/23 20:02 Dose: 10 mg Olanzapine (Olanzapine 5 Mg Tablet) 5 mg PO BID PRN PRN Reason: Psychosis Oxcarbazepine (Oxcarbazepine 150 Mg Tablet) 450 mg PO BEDTIME BARNEY Last Admin: 11/19/23 20:02 Dose: 450 mg Sodium Chloride (Sodium Chloride 0.65 % Nasal 44 Ml Sprbtl) 1 spray NOSTRIL-B Q1H PRN PRN Reason: Congestion Last Admin: 11/20/23 08:58 Dose: 1 spray Allergies Allergies Allergy/AdvReac Type Severity Reaction Status Date / Time No Known Allergies Allergy Verified 11/17/23 04:22 Assessment & Plan Assessment & Plan (1) Schizoaffective disorder, bipolar type: Status: Acute Code(s): F25.0 - Schizoaffective disorder, bipolar type Plan Nikhil meets criteria for IP LOC for treatment and safety. Admission workup to be done. Labs were reviewed. Tox screen was negative. He is admitted on a 12b status. Zyprexa 10 mg q.h.s. and Trileptal 300 mg q.h.s. were initiated. He was requesting to be discharged today and when I told him that was not an option he was less cooperative and somewhat angry but in control. Outpatient referral to be made even though he is likely to be noncompliant 11/18: Continue current regimen and plans. Trileptal was increased to 450 mg 11/19: Patient reports feeling good today; pt stated, I understand the science behind why doctors say that I have Bipolar d/o but I don't agree with them. I don't like taking medication because I feel like I don't have control over my body . Section 12B up on 11/22/23. Pt denies SI/HI/VH/AH. Patient educated on: diagnosis, medication risk/benefits and therapeutic strategies Informed Consent: understands Reason for continued inpatient stay Substantial Risk for: med/psych decompensation Time Spent With Patient Time: Total time managing care of this patient today _20___ minutes.
[2023-11-20 20:00] VITALS: BP 152/65; PULSE 79; RESP 16; TEMP 37.1; O2SAT 97
[2023-11-20] MEDS: OLANZapine 10 MG TABLET PO (20:26)
[2023-11-20] MEDS: OXcarbazepine 150 MG TABLET 450 MG PO (20:26)
[2023-11-21] MEDS: Multivitamin TABLET 1 TAB PO (07:53)
[2023-11-21 08:00] VITALS: BP 142/91; PULSE 80; RESP 18; TEMP 37.1; O2SAT 98
--- NOTE | 2023-11-21 13:20 | HO.PSYCHPN ---
Subjective Subjective Date of Service: 11/21/23 Reason For Visit: psychosis Subjective Notes: Section 12B Interim History: Reviewed with Dr. Hummel. Patient reports feeling good today; pt stated, I slept great last night. I'm happy to go home tomorrow. I know I need to work on being patient with my families beliefs and being okay that they are different than mine when it comes to medications and mental health . Pt denies SI/HI/VH/AH. Pt reports he plans on following up with outpatient providers and continuing to take his medications as prescribed. Medication Compliance: Yes Side effects from medications: No Attending Groups: Yes Review of Systems Constitutional: Reports as per HPI Eyes: Reports as per HPI Reports as per HPI Cardiovascular: Reports as per HPI Respiratory: Reports as per HPI Gastrointestinal: Reports as per HPI Genitourinary: Reports as per HPI Musculoskeletal: Reports as per HPI Skin/Breast: Reports as per HPI Reports as per HPI Psychiatric: Reports as per HPI Endocrine: Reports as per HPI Hematologic/Lymphatic: Reports as per HPI Allergic/Immunologic: Reports as per HPI Mental Status Exam Mental Status Exam Narrative: Pt is alert and oriented; behavior is cooperative and calm; dressed in casual attire; mood is described as good ; eye contact appropriate; Speech is normal rate, volume and not pressured; thought process is organized; Thought content is on discharge; denies SI/HI/VH/AH. Diagnostics Vital Signs (24Hr): Vital Signs - 24 hr 11/20/23 20:00 11/21/23 08:00 Temperature 98.7 F 98.8 F Pulse Rate 79 80 Respiratory Rate 16 18 Blood Pressure 152/65 H 142/91 H Pulse Oximetry 97 98 Oxygen Delivery Method Room Air Room Air BMI result Body Mass Index 24.3 Labs 11/17/23 05:35 11/18/23 08:02 Medications Medications Current Medications Acetaminophen (Acetaminophen 325 Mg Tablet) 650 mg PO Q6H PRN PRN Reason: Headache/Pain Mild Scale (1-3) Al Hydroxide/Mg Hydroxide (Magnesium Hydrox/Alum Hydrox 30 Ml Oral.Susp) 30 ml PO Q6H PRN PRN Reason: Heartburn/Nausea Lorazepam (Lorazepam 1 Mg Tablet) 1 mg PO Q6H PRN PRN Reason: anxiety/restlessness Magnesium Hydroxide (Milk Of Magnesia 30 Ml Oral.Susp) 30 ml PO DAILY PRN PRN Reason: Constipation Multivitamins/Vitamin C (Multivitamin Tablet) 1 tab PO DAILY BARNEY Last Admin: 11/21/23 07:53 Dose: 1 tab Olanzapine (Olanzapine 10 Mg Tablet) 10 mg PO BEDTIME BARNEY Last Admin: 11/20/23 20:26 Dose: 10 mg Olanzapine (Olanzapine 5 Mg Tablet) 5 mg PO BID PRN PRN Reason: Psychosis Oxcarbazepine (Oxcarbazepine 150 Mg Tablet) 450 mg PO BEDTIME BARNEY Last Admin: 11/20/23 20:26 Dose: 450 mg Sodium Chloride (Sodium Chloride 0.65 % Nasal 44 Ml Sprbtl) 1 spray NOSTRIL-B Q1H PRN PRN Reason: Congestion Last Admin: 11/20/23 08:58 Dose: 1 spray Allergies Allergies Allergy/AdvReac Type Severity Reaction Status Date / Time No Known Allergies Allergy Verified 11/17/23 04:22 Assessment & Plan Assessment & Plan (1) Schizoaffective disorder, bipolar type: Status: Acute Code(s): F25.0 - Schizoaffective disorder, bipolar type Plan Nikhil meets criteria for IP LOC for treatment and safety. Admission workup to be done. Labs were reviewed. Tox screen was negative. He is admitted on a 12b status. Zyprexa 10 mg q.h.s. and Trileptal 300 mg q.h.s. were initiated. He was requesting to be discharged today and when I told him that was not an option he was less cooperative and somewhat angry but in control. Outpatient referral to be made even though he is likely to be noncompliant 11/18: Continue current regimen and plans. Trileptal was increased to 450 mg 11/19: Patient reports feeling good today; pt stated, I understand the science behind why doctors say that I have Bipolar d/o but I don't agree with them. I don't like taking medication because I feel like I don't have control over my body . Section 12B up on 11/22/23. Pt denies SI/HI/VH/AH. 11/20: Patient reports feeling good today; pt stated, I slept great last night. I'm happy to go home tomorrow. I know I need to work on being patient with my families beliefs and being okay that they are different than mine when it comes to medications and mental health . Pt denies SI/HI/VH/AH. Pt reports he plans on following up with outpatient providers and continuing to take his medications as prescribed. 12b up tomorrow. Patient educated on: diagnosis, medication risk/benefits and therapeutic strategies Informed Consent: understands Reason for continued inpatient stay Substantial Risk for: stable for discharge Time Spent With Patient Time: Total time managing care of this patient today _20___ minutes.
[2023-11-21 16:10] VITALS: BMI 24.0
[2023-11-21 16:11] VITALS: BP 116/80; PULSE 100; RESP 16; TEMP 36.4; O2SAT 97
[2023-11-21 20:00] VITALS: BP 134/70; PULSE 80; RESP 16; TEMP 36.4; O2SAT 97
[2023-11-21] MEDS: OXcarbazepine 150 MG TABLET 450 MG PO (21:15)
[2023-11-21] MEDS: OLANZapine 10 MG TABLET PO (21:16)
[2023-11-21] MEDS: Sodium Chloride 0.65 % Nasal 44 ML SPRBTL 1 SPRAY NOSTRIL-B (23:27)
[2023-11-22 07:20] VITALS: BP 130/80; PULSE 65; RESP 18; TEMP 37.1; O2SAT 99
[2023-11-22 08:00] VITALS: BP 130/80; PULSE 65; RESP 18; TEMP 37.1; O2SAT 99
[2023-11-22] MEDS: Multivitamin TABLET 1 TAB PO (08:10)
--- NOTE | 2023-11-22 13:29 | PM.PSYDC ---
DS: Providers Provider Date of Service: 11/22/23 Date of admission: 11/17/23 16:49 Date of discharge: 11/22/23 Primary care physician: Carl Physician Attending physician on admission: Warner Schwab Attending physician on discharge: Cristino Hummel Discharging clinician: Deanne Mantilla DS: Diagnosis Discharge Diagnosis (1) Schizoaffective disorder, bipolar type: Status: Acute DS: Medications Discharge Medications Home Medications: Previous Rx's ?Medication ?Instructions ?Recorded olanzapine 10 mg tablet 10 mg PO BEDTIME 30 days #30 tabs 11/21/23 oxcarbazepine 150 mg tablet 450 mg (3 x 150 mg) PO BEDTIME 30 11/21/23 days #90 tabs Mental Status Exam Mental Status Exam Narrative: Pt is alert and oriented; behavior is cooperative and calm; dressed in casual attire; mood is described as good ; eye contact appropriate; Speech is normal rate, volume and not pressured; thought process is organized; Thought content is on discharge; denies SI/HI/VH/AH. Data Data Completed and Pending Completed studies during hospitalization [Text1]: 11/17/23 11/17/23 11/18/23 04:44 05:35 08:02 WBC 5.8 RBC 4.93 Hgb 14.9 Hct 42.8 MCV 86.8 MCH 30.2 MCHC 34.8 RDW 12.7 Plt Count 229 MPV 9.6 Immature Gran % (Auto) 0.2 Neut % (Auto) 57.8 Lymph % (Auto) 30.5 Mccormick % (Auto) 9.3 Eos % (Auto) 1.9 Baso % (Auto) 0.3 Lymph # (Auto) 1.8 Mccormick # (Auto) 0.5 Eos # (Auto) 0.1 Baso # (Auto) 0.0 Abs Immat Gran (auto) 0.01 Absolute Neuts (auto) 3.4 Absolute Nucleated RBC 0.000 Nucleated RBC % (auto) 0.0 Sodium 138 138 Potassium 3.8 3.9 Chloride 106 104 Carbon Dioxide 25 27 Anion Gap 11 L 11 L BUN 13 14 Creatinine 1.13 1.06 Estim Creat Clear Calc 98.3 104.8 Estimated GFR > 60 > 60 Random Glucose 93 Fasting Glucose 98 Calcium 9.4 9.5 Total Bilirubin 0.5 0.3 AST 23 22 ALT 19 19 Alkaline Phosphatase 81 84 Total Protein 7.6 7.8 Albumin 4.0 4.2 Triglycerides 50 Cholesterol 97 LDL Cholesterol, Calc 49 HDL Cholesterol 38 L Urine Color Yellow Urine Appearance Clear Urine pH 6.0 Ur Specific Valencia 1.010 Urine Protein Negative Urine Glucose (UA) Negative Urine Ketones Negative Urine Blood Negative Urine Nitrite Negative Ur Leukocyte Esterase Negative Urine Opiates Screen Not Detected Ur Buprenorphine Scrn Not Detected Ur Oxycodone Screen Not Detected Urine Methadone Screen Not Detected Urine Fentanyl Screen Not Detected Ur Barbiturates Screen Not Detected Ur Phencyclidine Scrn Not Detected Ur Amphetamines Screen Not Detected U Benzodiazepines Scrn Not Detected Urine Cocaine Screen Not Detected U Marijuana (THC) Screen Not Detected Ethyl Alcohol < 10 DS: Summary Hospital Course Hospital Course: Nikhil is a 23-year-old , single, employed (works at a [employer]), man who lives with his mother. Has a history of schizoaffective disorder with several psychiatric hospitalizations. He was last in this hospital in the fall of 2022. He has historically been medication noncompliant on an outpatient basis. According to his mother he has been sleeping poorly, is expansive and his mood, hyper scientology and religiously preoccupied. He has little to no insight into his illness. He denies any auditory or visual hallucinations. He is denying any substance use or abuse. He denies any suicidal ideations. Denies any history of violence. He can not give me any information about past medications other than possibly having been on Zyprexa and Trileptal. He does not follow any treatment on an outpatient basis. He is here on a 12b. He is open to taking medications while here but states that he would not take him on the outside. Nikhil meets criteria for IP LOC for treatment and safety. Admission workup to be done. Labs were reviewed. Tox screen was negative. He is admitted on a 12b status. Zyprexa 10 mg q.h.s. and Trileptal 300 mg q.h.s. were initiated. He was requesting to be discharged today and when I told him that was not an option he was less cooperative and somewhat angry but in control. Outpatient referral to be made even though he is likely to be noncompliant Trileptal was increased to 450 mg Patient reports feeling good today; pt stated, I understand the science behind why doctors say that I have Bipolar d/o but I don't agree with them. I don't like taking medication because I feel like I don't have control over my body . Section 12B up on 11/22/23. Pt denies SI/HI/VH/AH. Patient reports feeling good today; pt stated, I slept great last night. I'm happy to go home tomorrow. I know I need to work on being patient with my families beliefs and being okay that they are different than mine when it comes to medications and mental health . Pt denies SI/HI/VH/AH. Pt reports he plans on following up with outpatient providers and continuing to take his medications as prescribed. 12b up tomorrow. Pt reports feeling good and ready to go home . Pt reports he plans on following up with outpatient providers and being medication compliant. pt denies SI/HI/VH/AH. Time spent discussing smoking cessation with patient: 3 to 10 minutes Status at Discharge Cognitive/behavioral status at discharge: Patient was interviewed prior to discharge and found to be fully oriented and without SI or HI. Patient has insight and demonstrates good judgment in terms of wanting to pursue treatment. Patient has a safety plan that includes presenting to the closest ER or calling 911 if feeling unsafe. Functional status at discharge: independent ambulation Overall status at discharge: patient is back to baseline Time Spent with Patient Time attestation: Total time managing care of this patient today _20___ minutes. Time spent: Less than 30 minutes Discharge Plan Discharge Anticipated Discharge Date/Time: 11/22/23 11:00 Patient Disposition: Home, Self-Care Discharge Diagnosis: Schizoaffective d/o Referrals: [facility] [Other] - 1 Week ([facility] has been added to patient's chart. Please call [phone] for a follow-up appointment.) [facility] [Other] - 1 Week (Call the above number 14/11 or walk-in to their office in [place] Monday-Monday 8am-8pm or Monday and Monday 8am-6pm to request assistance in obtaining services or supports ) Discharge Medications: New oxcarbazepine 150 mg Tablet 450 mg PO BEDTIME 30 Days Qty: 90 0RF olanzapine 10 mg Tablet 10 mg PO BEDTIME 30 Days Qty: 30 0RF Discontinued cetirizine 10 mg tablet 10 mg PO DAILY Discharge Orders: Discharge Order (Routine); Ordered 11/22/23 Ordered By: Deanne Mantilla Diet: Regular diet Activity on Discharge: As tolerated Stand Alone Forms: Patient Portal Discharge page, Community Support Print Language: Khmer Care Plan Goals: Maintain mood and safe behaviors Take medications as prescribed Practice coping skills Continue with outpatient providers and reach out to them as needed Health Concerns: Mood stability and behaviors Plan of Treatment: Follow up with your PCP, psychiatric provider and other outpatient providers regarding above concerns Take medications as prescribed Assessment: Patient was interviewed prior to discharge and found to be fully oriented and without SI or HI. Patient has insight and demonstrates good judgment in terms of wanting to pursue treatment. Patient has a safety plan that includes presenting to the closest ER or calling 911 if feeling unsafe. Discharge Date/Time: 11/22/23 10:55
== END 2023-11-22 10:55 | disposition home or self-care (01) | DRG 750 ==
LOC: HO.ED 07:05 → HO.PADLT16 17:14
PROVIDERS: Admitting Provider Psychiatry & Neurology Psychiatry; Emergency Provider Internal Medicine; Responsible Provider Registered Nurse; Visit Provider Psychiatry & Neurology Psychiatry
DX: F25.0 Schizoaffective disorder, bipolar type (principal); Z91.148 Patient's other noncompliance with medication regimen for other reason; Z79.899 Other long term (current) drug therapy
CPT/HCPCS: 36415; 80053; 80061; 80307; 81003; 85025; 99285; S9485

== ENCOUNTER → 2023-11-17 16:49 | Outpatient (BNV) | payer SELFPAY | PROVIDERS: Admitting Provider Psychiatry & Neurology Psychiatry; Emergency Provider Internal Medicine; Visit Provider Psychiatry & Neurology Psychiatry | DX: F25.0 Schizoaffective disorder, bipolar type (principal) | CPT/HCPCS: 99231; 99232 ==

== ENCOUNTER 2024-06-21 08:20 | Inpatient (IN) | payer OTHER, SELFPAY ==
[2024-06-21 08:22] VITALS: BP 142/80; PULSE 87; RESP 20; TEMP 37.1; O2SAT 100; BMI 24.3
--- OUTSIDE RECORDS SUMMARY | 2024-06-21 08:44 | XMS_ITS | Encounter Summary ---
Author Organization [facility] Address [address] [place], [place] [id number] Phone Care Team Providers Care Hair Spring Cutter Name Role Phone Ab Hernandes MD Primary Care Provider [phone] Encounter Details Date Type Department Care Team (Late st Contact Info) Description 08/01/2016 Documentation [facility] [place] Family Medicine [address] [place], [place] [phone] Family Medicine, Physician [address] [place] [address] Social History Tobacco Use Types Packs/Day Years Used Date Smoking Tobacco: Never Assessed Sex and Gender Information Value Date Recorded Sex Assigned at Male 09/10/2019 2:13 PM EDT Legal Sex Male 5:22 PM EDT Gender Identity Male 09/10/2019 2:13 PM EDT Sexual Orientation Straight 09/10/2019 2: 13 PM EDT documented as of this encounter Plan of Treatment Not on file documented as of this encounter Visit Diagnoses Not on filedocumented in this encounter Care Teams Hair Spring Cutter Relationship Specialty Start Date End Date Ab Hernandes MD [address] [place] [id number] PCP - General Pediatrics 05/24/19 10/12/22 documented as of this encounter
--- OUTSIDE RECORDS SUMMARY | 2024-06-21 08:44 | XMS_ITS | Encounter Summary ---
Author Organization [facility] Address [address] [place], [place] [phone] Phone Care Team Providers Care Supervisor Sample Preparation Name Role Phone Ab Hernandes MD Primary Care Provider [phone] Encounter Details Date Type Department Care Team (Late st Contact Info) Description 08/01/2016 Documentation [facility] [place] [address] [place], [place] [phone] Family Medicine, Physician [address] [place] [address] Social History Tobacco Use Types Packs/Day Years [...] on filedocumented in this encounter Care Teams Supervisor Sample Preparation Relationship Specialty Start Date End Date Ab Hernandes MD [address] [place] [id number] PCP - General Pediatrics 05/24/19 10/12/22 documented as of this encounter
--- OUTSIDE RECORDS SUMMARY | 2024-06-21 08:44 | XMS_ITS | Encounter Summary ---
Author Organization [facility] Address [address] [place] [address] Phone Care Team Providers Care Director Of Acquisitions Name Role Phone Ab Hernandes MD Primary Care Provider [phone] Encounter Details Date Type Department Care Team (Late st Contact Info) Description 01/04/2017 Conversion Encounter [facility] [place] [address] [place] [address] Social History Tobacco Use Types Packs/Day Years Used Date Smoking Tobacco: Never Comments:Never smoker Sex and Gender Information Value Date Recorded Sex Assigned at Male 09/10/2019 2:13 PM EDT Legal Sex Male 5:22 PM EDT Gender Identity Male 09/10/2019 2:13 PM EDT Sexual Orientation Straight 09/10/2019 2: 13 PM EDT documented as of this encounter Plan of Treatment Not on file documented as of this encounter Visit Diagnoses Not on filedocumented in this encounter Care Teams Director Of Acquisitions Relationship Specialty Start Date End Date Ab Hernandes MD [address] [place] [address] PCP - General Pediatrics 05/24/19 10/12/22 documented as of this encounter
--- OUTSIDE RECORDS SUMMARY | 2024-06-21 08:44 | XMS_ITS | Clinical Summary ---
Author Organization [employer] Address [address] [facility] [address] [place] [address] Care Team Providers Care Artist Manager Name Role Phone Unavailable Primary Care Provider Unavailabl e Social History Tobacco Use Types Packs/Day Years Used Date Smoking Tobacco: Never Assessed Sex and Gender Information Value Date Recorded Sex Assigned at Not on file Legal Sex Male 12:00 PM EDT Gender Identity Not on file Sexual Orientation Not on file Plan of Treatment Health Maintenance Due Date Last Done Comments Chlamydia and Gonorrhea Screening 2000 Depression Screening 2000 HIV Screening 2000 SDOH Screening 2000 Alcohol/Substance Use Screening 2012 Tobacco Screening 2012 Family Planning (PISQ) 09/05/2015 HPV Vaccines (1 - Male 3-dos e series) 09/05/2015 Hepatitis C Screening 2018 DTaP/Tdap/Td Vaccines (1 - Tdap) 09/05/2019 Hepatitis B Vaccines (1 of 3 - 19+ 3-dose series) 09/05/2019 COVID-19 Vaccine (1 - 2023-2 5 season) 2023 Influenza Vaccine (#1) 2023 Zoster Vaccines (1 of 2) 2050 RSV Patients and Pa tients Aged 60 years or older (1 - 1-dose 75+ series) 09/05/2075 HIB Vaccines Aged Out No longer eligi ble based on patient's age to complete this topic Hepatitis A Vaccines Aged Out No long er eligible based on patient's age to complete this topic IPV Vaccines Aged Out No longer eligi ble based on patient's age to complete this topic Meningococcal Vaccine Aged Out No aaron shawna eligible based on patient's age to complete this topic Pneumococcal Vaccine: Pediat rics (0 to 5 Years) and At-Risk Patients (6 to 49) Years) Aged Out No longer eligible b ased on patient's age to complete this topic RSV under 20 months Aged Out No longe r eligible based on patient's age to complete this topic Rotavirus Vaccines Aged Out No longer eligible based on patient's age to complete this topic Insurance [facility]
--- OUTSIDE RECORDS SUMMARY | 2024-06-21 08:44 | XMS_ITS | Encounter Summary ---
Author Organization [facility] Address [address] [place] [address] Phone Care Team Providers Care Continuing Education Instructor Name Role Phone Ab Hernandes MD Primary Care Provider Encounter Details Date Type Department Care Team (Late st Contact Info) Description 09/11/2013 Documentation [facility] [place] Family Medicine [address] [place], [place] [phone] Family Medicine, Physician [address] [place] [address] Social History Tobacco Use Types Packs/Day Years [...] on filedocumented in this encounter Care Teams Continuing Education Instructor Relationship Specialty Start Date End Date Ab Hernandes MD [address] [place] [id number] PCP - General Pediatrics 05/24/19 10/12/22 documented as of this encounter
--- OUTSIDE RECORDS SUMMARY | 2024-06-21 08:44 | XMS_ITS | Encounter Summary ---
Author Organization [facility] Address [address] [place] [address] Phone Care Team Providers Care Urologic Surgeon Name Role Phone Ab Hernandes MD Primary Care Provider [phone] Encounter Details Date Type Department Care Team (Late st Contact Info) Description 06/29/2010 Documentation [facility] [place] Family Medicine [address] [place], [place] [phone] Family Medicine, Physician [address] [place] [address] Social History Tobacco Use Types Packs/Day Years [...] on filedocumented in this encounter Care Teams Urologic Surgeon Relationship Specialty Start Date End Date Ab Hernandes MD [address] [place] [id number] PCP - General Pediatrics 05/24/19 10/12/22 documented as of this encounter
--- OUTSIDE RECORDS SUMMARY | 2024-06-21 08:44 | XMS_ITS | Clinical Summary ---
Author Organization [facility] it[facility] Address [address] [place] [address] Care Team Providers Care Fan Installer Name Role Phone Unavailable Primary Care Provider Unavailabl e Social History Tobacco Use Types Packs/Day Years Used Date Smoking Tobacco: Never Assessed Sex and Gender Information Value Date Recorded Sex Assigned at Not on file Legal Sex Male 5:43 AM EST Gender Identity Not on file Sexual Orientation Not on file Plan of Treatment Health Maintenance Due Date Last Done Comments HPV Vaccines (1 - Male 3-dos e series) 09/05/2015 Meningococcal B Vacine (1 of 2 - Standard) 2016 DTaP,Tdap,and Td Vaccines (1 - Tdap) 09/05/2019 Hepatitis B Vaccines (1 of 3 - 19+ 3-dose series) 09/05/2019 Depression Screening 03/27/2022 HIV Screening 03/27/2022 Hepatitis C Screening 03/27/2022 Social Influencers of Health Screening 03/27/2022 COVID-19 Vaccine ( - 2023-2 5 season) 2023 Influenza Vaccine (#1) 2023 HIB Vaccines Aged Out No longer eligi ble based on patient's age to complete this topic Hepatitis A Vaccines Aged Out No long er eligible based on patient's age to complete this topic IPV Vaccines Aged Out No longer eligi ble based on patient's age to complete this topic MMR Vaccines Aged Out No longer eligi ble based on patient's age to complete this topic Meningococcal ACWY Vaccine Aged Out N o longer eligible based on patient's age to complete this topic Pneumococcal Vaccine: Pediat rics (0 to 5 Years) and At-Risk Patients (6 to 64 Years) Aged Out No longer eligible b ased on patient's age to complete this topic RSV Immunization Patients Un billie 20 months Aged Out No longer eligible b ased on patient's age to complete this topic Varicella Vaccines Aged Out No longer eligible based on patient's age to complete this topic
--- OUTSIDE RECORDS SUMMARY | 2024-06-21 08:44 | XMS_ITS | Encounter Summary ---
Author Organization [facility] Address [address] [place] [address] Phone Care Team Providers Care Air Value Tester Name Role Phone Ab Hernandes MD Primary Care Provider [phone] Reason for Visit * Reason Comments Med Refill Encounter Details Date Type Department Care Team (Late st Contact Info) Description 09/26/2018 Refill [facility] [place] [address] [place] [address] Ab Hernandes MD [address] [place] [address] Chronic seasonal allergic rhinitis due to pollen Social History Tobacco Use Types Packs/Day Years Used Date Smoking Tobacco: Never Smokeless Tobacco: Never Comments:Never smoker Alcohol Use Standard Drinks/Week Comments No 0 (1 standard drink = 0.6 oz pur e alcohol) Sex and Gender Information Value Date Recorded Sex Assigned at Male 09/10/2019 2:13 PM EDT Legal Sex Male 5:22 PM EDT Gender Identity Male 09/10/2019 2:13 PM EDT Sexual Orientation Straight 09/10/2019 2: 13 PM EDT documented as of this encounter Miscellaneous Notes * Telephone Encounter - Addis Melo LPN - 09/27/2018 9:59 AM EDT Pharm fax refill loratadine. EH documented in this encounter Plan of Treatment Not on file documented as of this encounter Visit Diagnoses Diagnosis Chronic seasonal allergic rhinitis due to pollen documented in this encounter Care Teams Air Value Tester Relationship Specialty Start Date End Date Ab Hernandes MD [address] [facility] [place] [address] PCP - General Pediatrics 05/24/19 10/12/22 documented as of this encounter
--- OUTSIDE RECORDS SUMMARY | 2024-06-21 08:44 | XMS_ITS | Clinical Summary ---
Author Organization [facility] Address [address] [place], [place] [id number] Phone Care Team Providers Care Nicking Machine Operator Name Role Phone Unavailable Primary Care Provider Unavailabl e Allergies No known active allergies Medications Spacer/Aero-Holdin g Chambers (OPTICHAMBER REILLY) misc OPTICHAMBER REILLY; use 1 by Inhalation route as needed with inhaler; 10/15/2016; Active 10/16/19 17 Active ketotifen (ALAWAY) 0.025 % ophthalmic solutionIndication s:Allergic conjunctivitis of both eyes 1 drop each eye daily to prevent allergy symptoms. 5 mL 1 08/30/19 18 Active Additional Information Patient not taking.Reported on 10/26/2021 albuterol HFA (PROAIR HFA) 108 (90 Base) MCG/ACT inhalerIndications :Allergic conjunctivitis of both eyes 2 puffs q 4-6 hours prn cough/ wheeze 1 Units 08/03/19 19 Active Additional Information Patient not taking.Reported on 10/26/2021 LORATADINE 10 MG tabletIndications: Chronic seasonal allergic rhinitis due to pollen TAKE 1 TABLET BY MOUTH EVERY DAY 30 tablet 3 09/28/19 19 Active Additional Information Patient not taking.Reported on 10/26/2021 ARIPiprazole 10 MG tablet 04/20/20 21 Active zolpidem 5 MG tablet 04/21/20 21 Active Hydrocortisone, Perianal, 1 % cream APPLY UNDERNEATH FORESKIN TWICE DAILY X 7 DAYS 09/30/19 22 Active Fluocinolone Acetonide Scalp (Kinder-Smoothe/FS Scalp) 0.01 % oilIndications:Osito orrheic dermatitis of scalp Apply topically to scalp hs, cover and shampoo in the am - repeat 2-3 times weekly 120 mL 10/27/19 Active Active Problems Problem Noted Date Diagnosed Date COVID-19 vaccine dose declined 10/26/2021 Overview (10/26/2021): 11/12- declined booster dose today. Bipolar affective disorder in remission 03/09/20 Overview (05/11/2021): 05/15- now on Aripiprozole, and Toni hinojosa for sleep. Sees Dr. Rubi - thru an agency in [place], also sees Tiff Wilkins, therapist. Hosp at [facility] in either dec or early Jan for a week Started on Olanzapine. No known follow up med visit per Nikhil Assessment & Plan (03/10/2021 9:39 AM EST): Hospitalized at [facility] late November for anxiety. Started on Olanxapine 20 mg QHS. This med has been helpful though Nikhil does not like the side effects. Pt says he is planning on weaning himself off. I advised against this and advised he call [facility] to ask about a medication follow up. To continue in therapy - weekly. After pt left I noted his multiple no shows. Will send note to care coordinators about calling him to schedule PE and hosp follow up appointment and what to do about multiple no shows. History of 2018 novel coronavirus disease (COVID -19) 12/07/2020 Overview (12/07/2020): Advised to book overdue PE Other constipation 04/19/2020 Overview (04/19/2020): Long hx of, on miralax on Assessment & Plan (04/19/2020 9:13 AM EST): Eat lots of fruits and veggies Have flax seed oil, a tablespoon a day, and a tsp of flax seed. Mild intermittent asthma without complication Overview (03/14/2017): wheezed once 2010 then not again till August 2012 when he even needed pred but no S/S persistent asthma. Flovent 110 - started 09/2016 for persistent cough Resolved Problems Problem Noted Date Diagnosed Date Resolved Date Chlamydia 06/26/2019 03/09/2021 Overview (04/19/2020): Pt also had cladeliadia dx in [place] summer 2018 Assessment & Plan (04/19/2020 9:14 AM EST): Will recheck today may cause his symptoms. Always use condoms! Immunizations Immunization Administration Dates Next Due DTaP 5 01/26/2005, 2,05/22/2001,02/22,2000 HPV, Quadrivalent 02/06/2013,03/21/2012,01/05/20 12 Hep A, ped/adol 03/26/2015,02/25/2014 Hep B, ped/adol 10/03/2002,05/22/2001,2000 Hib (PRP-T) 03/07/2002, 2,02/22/2001,12/04 IPV 01/26/2005, 2,05/22/2001,02/22,2000 Influenza Split 01/05/2012 Influenza, injectable, quadrivalent 01/18/2016,1 05/27/2014 Influenza, injectable, quadr ivalent, preservative free 03/09/2021,02/02/2020,06/26/2019,02/06,02/06/2013 Influenza, intranasal, trivalent 12/30/2010 MMR 01/26/2005,09/06/2001 Meningococcal B Trumenba 05/11/2021,03/09/2021,0 09/10/2019 Meningococcal Conj (Menactra) MCV4P 12/08/2016,0 01/05/2012 Pneumococcal Conjugate 10/03/2002,2001,02/22/2001,12/04 Pneumococcal Polysaccharide 09/10/2019 Tdap 01/05/2012 Varicella 07/20/2009,09/06/2001 Family History Relation Name Status Comments Brother Nikhil Mcconnell Alive Brother: Asthm a; ADD, Alive and well, Asthma Mother Bere Alive Mother: Depress ion, Inflammatory bowel disease, Inflammatory bowel disease Other Family history of Cancer, breast, No family history of Migraines, Family history of *Heart Disease, No family history of Developmental dislocation of hip, No family history of Deafness, Family history of ADD/ADHD, No family history of Seizure disorder, No family history of Elevated cholesterol, No family history of Hyperlipidemia, Family history of Strabismus, No family history of Obesity, No family history of Sudden /AR under age 55, No family history of *CVA/Stroke, Family history of Hypertension, No family history of Strabismus/amblyopia, No family history of *Sudden /AR under 55, Family history of Asthma, Family history of Diabetes mellitus Sister Victor Manuel Guerrero Alive Sister: Alive and well Social History Tobacco Use Types Packs/Day Years Used Date Smoking Tobacco: Never Smokeless Tobacco: Never Comments:Never smoker Alcohol Use Standard Drinks/Week Comments No 0 (1 standard drink = 0.6 oz pur e alcohol) Hunger/Food Answer Date Recorded In the last 12 months, did y ou or your family ever eat less than you felt you should because there wasn't enough money for food? No 05/11/2021 Stable Housing Answer Date Recorded Are you worried that in the next 2 months you may not have stable housing? No 05/11/2021 Transportation Concerns Answer Date Rec orded In the last 12 months, have you or your family ever had to go without healthcare because you didn't have a way to get there? No 05/11/2021 Hazards in Home Answer Date Recorded Think about the place you li ve. Do you have problems with any of the following? Pests (mice or roaches), mold, no/not working smoke detectors, water leaks, no window guards. No 2021 Financing Utilities Answer Date Recorde d In the last 12 months, has t he electric, gas, oil, or water company threatened to shut off your services in your home? No 05/11/2021 Safety at Home Answer Date Recorded Are you or your family worried about feeling saf e in your home? No 05/11/2021 Outside Support Answer Date Recorded Do you feel that you need mo re support from other people or programs to help you care for yourself or your family? No 05/11/2021 Understanding Health Concerns Answer Da te Recorded Do you need help understandi ng your or your child's healthcare needs (diagnosis, medications, plan, etc.)? No 05/11/2021 Financing Health Concerns Answer Date R ecorded In the last 12 months, was t here a time when your child needed to see a doctor or get medications or supplies but could not because of cost? No 05/11/2021 Missing School or Work Answer Date Dhiraj rded Did you or your child miss s chool or work because of a health problem that could have been avoided? No 05/11/2021 Sex and Gender Information Value Date Recorded Sex Assigned at Male 09/10/2019 2:13 PM EDT Legal Sex Male 5:22 PM EDT Gender Identity Male 09/10/2019 2:13 PM EDT Sexual Orientation Straight 09/10/2019 2: 13 PM EDT Last Filed Vital Signs Vital Sign Reading Time Taken Comments Blood Pressure 114/74 10/26/2021 8:38 AM EDT Pulse 65 10/26/2021 8:38 AM EDT Temperature 35.6 ??C (96 ??F) 05/11/2021 2:13 PM EST Respiratory Rate - - Oxygen Saturation 100% 10/14/2016 12:00 AM EDT Inhaled Oxygen Concentration - - Weight 67.6 kg (149 lb) 10/26/2021 8:38 AM EDT Height 172.1 cm (5' 7.75 ) 05/11/2021 2:13 PM ES T Body Mass Index 22.82 05/11/2021 2:13 PM EST Plan of Treatment Health Maintenance Due Date Last Done Comments Glucose/HbA1C 03/09/2021 LDL-C/Cholesterol 03/09/2021 DTaP,Tdap,and Td Vaccines (7 - Td or Tdap) 01/04/2022 01/05/2012, 01/26/2005, 03/07/2002, Additional history exists Influenza Vaccines (#1) 2023 03/09/20 21, 02/02/2020, 06/26/2019, Additional history exists COVID-19 Vaccine (2023- 5 season) 2023 01/19/2021, 12/29/2020 HIB Vaccines Completed 03/07/2002, 04/25, 02/22/2001, Additional history exists Hepatitis B Vaccines Completed 10/03/2002, 05/22/2001, 2000 IPV Vaccines Completed 01/26/2005, 02/22, 05/22/2001, Additional history exists MMR Vaccines Completed 01/26/2005, 09/06/2001 Varicella Vaccines Completed 07/20/2009, 09/06/2001 HPV Vaccines Completed 02/06/2013, 02/23, 01/05/2012 Hepatitis A Vaccines Completed 03/26/2015, 02/26/20 14 Meningococcal Vaccine Completed 12/08/2016, 012 Pneumococcal Vaccine Completed 09/10/2019, 10/03/2002, 05/22/2001, Additional history exists Chlamydia and Gonorrhea Screening Discontinued 05/11/2021, 04/19/2020, 03/10/2020, Additional history exists Men B Vaccine Completed 05/11/2021, 02/22, 09/10/2019 Procedures * Due to [facility] law, this organization might not be sharing sensitive test results. Procedure Name Priority Date/Time Associated Diagnosis Comments CHLAMYDIA AND GONORRHEA, AMPLIFIED Routine 05/11/2021 2:40 PM EST Special screening examination for chlamydial disease from Last 3 Months or Most Recently Relevant to Health Maintenance Results * Due to [place] [employer] law, this organization might not be sharing sensitive test results. * Chlamydia and Gonorrhoea, Amplified (05/11/2021 2:40 PM EST) Chlamydia Trachomatis, DNA Probe NEGATIVE (NEG) [facility] Comment: No Chlamydia Trachomatis RNA detected in this patient's sample ? (REFERENCE RANGE/NORMAL VALUE: NOT DETECTED) ? Note: This test uses operational communication chief- mediated amplification method to detect rRNA from C. Trachomatis URINE GC AMP PROBE NEGATIVE (NEG) [facility] Comment: No Neisseria Gonorrhoeae RNA detected in this patient's sample ? (REFERENCE RANGE/NORMAL VALUE: NOT DETECTED) ? NOTE: This test uses operational communication chief-mediated amplification method to detect rRNA from N.Gonorrhoeae. A negative result does not preclude infection. In the case of a negative urine result, testing of an endocervical(female) or urethral (male) specimen is recommended if there is high clinical suspicion of infection. Due to very high sensitivity of Nucleic Acid Amplification Test, false positive results may occur. Therefore, specimen handling is extremely important. In patients in whom the disease is unlikely, additional sample for testing should be considered after an initial positive result. The performance characteristics of this test have not been evaluated in children. The Aptima Combo2 assay is not intended for the evaluation of suspected sexual abuse or for other medico-legal indications. The ordering provider should assess if the patient had consensual sex without risk of sexual abuse. Consult the [facility] if needed. Contact phone number . Therapeutic failure or success cannot be determined with the Aptima Combo2 assay since nucleic acid may persist following appropriate antimicrobial therapy. The Centers for Disease Control and Prevention (CDC) recommends confirmatory retesting using culture or a different nucleic acid amplification test when positive results occur, if indicated. Testing performed or reported by [facility], a Service of [facility], [facility] [place] [address] Yaw Gomez MD, Yarn Worker [facility]# [id number] Urine (Urine) 05/11/2021 2:4 0 PM EST 05/11/2021 8:15 PM EST Ab Hernandes MD LAB MICROBIOLOGY - GENERAL ORDER ERIC Final Result [facility] from Last 3 Months or Most Recently Relevant to Health Maintenance Insurance [facility] NON PCC
[2024-06-21 08:48] VITALS: RESP 16
--- NOTE | 2024-06-21 08:54 | PC.NURSE ---
Patient comes in from waiting room accompanied by his mother who reports he has been acting manic recently. Patient does appear disorganized upon first encounter, thought process is non-linear, he is speaking about writing a book and then his plan of life. He refuses to answer why he is here. Pt was observed wandering and speaking with another patient, then immediately doing push ups. Patient denies SI/HI
--- NOTE | 2024-06-21 08:55 | MHC.EDTECH ---
Pt received from triage. Pt walked to POD calmly. Pt changeover with Emergency [facility] Emt Jaspreet. Patient belongings secured in Pod locker #5. Urine and bloods specimen obtained from patient and sent for analysis shortly afterward.
[2024-06-21 09:08] LABS: MANUAL DIFF FLAG NO
[2024-06-21 09:14] LABS: Appearance Urine Clear; Color Urine Yellow; Glucose Urine UA Negative (Negative); Leukocyte Esterase Urine Negative (Negative); Nitrite Urine Negative (Negative); PH 6.5 (5.0-9.0); UMIC TRIGGER UACC YES; Urine Blood Trace (Negative); Urine Ketones Negative (Negative); Urine Protein Trace mg/dL (Neg-Trace)
[2024-06-21 09:16] LABS: Basophils Percent Auto 0.6 % (0-2); Eosinophils Absolute Auto 0.1 X10*3/uL (0.0-0.4); Eosinophils Percent Auto 1.3 % (0-4); Hematocrit 45.9 % (42.0-52.0); Hemoglobin 15.5 g/dl (14.0-18.0); Imm Gran Abs Auto 0.02 X10*3/uL (0.00-0.03); Imm Gran Pct Auto 0.3 % (0.0-0.4); Lymphocytes Absolute Auto 1.2 X10*3/uL (1.2-4.9); Lymphocytes Percent Auto 18.7 % (20-40); Mean Corpuscular HGB Conc 33.8 g/dl (31.0-36.0); Mean Corpuscular Hemoglobin 29.3 pg (27.0-33.0); Mean Corpuscular Volume 86.8 fL (80.0-98.0); Mean Platelet Volume 10.3 fL (9.4-12.4); Monocytes Absolute Auto 0.6 X10*3/uL (0.1-1.2); Monocytes Percent Auto 8.7 % (2-11); Neutrophils Absolute Auto 4.4 x10*3/uL (2.0-8.3); Neutrophils Percent Auto 70.4 % (45-73); Platelet Count 173 X10*3/uL (160-400); Red Blood Count 5.29 X10*6/uL (4.60-5.80); Red Cell Distribution Width 12.7 % (11.0-16.0); White Blood Count 6.3 X10*3/uL (4.8-10.8)
[2024-06-21 09:19] LABS: Bacteria Urine None Seen (None Seen); Hyaline Casts Urine 0-2 /LPF (0-2); Squamous Epithelial Cell Urine 0-2 /HPF (0-2); WBC Urine 0-5 /HPF (0-5)
[2024-06-21 09:23] LABS: Amphetamine Screen Urine Not Detected (Not Detect); Barbiturates, Urine Not Detected (Not Detect); Benzodiazepines Screen Urine Not Detected (Not Detect); Buprenorphine Scr Not Detected (Not Detect); Cannabinoid Screen Urine Not Detected (Not Detect); Cocaine Screen Urine Not Detected (Not Detect); Fentanyl, urine Not Detected (Not Detect); Methadone Screen, Urine Not Detected (Not Detect); Opiate Screen Urine Not Detected (Not Detect); Oxycodone Screen Urine Not Detected (Not Detect); Phencyclidine Screen Urine Not Detected (Not Detect)
[2024-06-21 09:29] LABS: Alanine Aminotransferase 18 U/L (0-40); Alkaline Phosphatase 76 U/L (39-117); Anion Gap 13 (12-20); Aspartate Amino Transferase 24 U/L (5-37); Bilirubin Total 0.9 mg/dL (0.0-1.0); Blood Urea Nitrogen 7 mg/dL (9-16); Calcium 9.3 mg/dL (8.4-10.2); Carbon Dioxide 25 mmol/L (22-29); Chloride 105 mmol/L (96-108); Estimated Glomerular Filt Rate > 60; Ethanol < 10 mg/dL; Glucose Random 117 mg/dL (60-115); Potassium 3.8 mmol/L (3.3-5.1); Sodium 139 mmol/L (135-145); Total Protein 8.4 g/dL (6.5-8.0)
--- NOTE | 2024-06-21 09:46 | MHC.CARE ---
Pt meets the criteria for IPLOC. Section 12a in chart. Provider in agreement.
--- NOTE | 2024-06-21 09:50 | ED.PSYCH ---
HPI - Psych General Chief Complaint: Psychiatric Symptoms Stated Complaint: crisis Time Seen by Provider: 06/21/24 08:42 Source: patient Mode of arrival: ambulatory Limitations: no limitations History of Present Illness ED Provider: Chanell Moreno NP HPI Narrative: Patient is a 23-year-old male who presents emergency department with mother for evaluation. Mother expresses concern about him having a psychotic episode reporting that she believes he has been diagnosed with bipolar disorder in the past. Patient does not provide me much meaningful history as to why he is here today. Reports that his mother is concerned about him but of course she would be . He denies taking any medications on a daily basis. He offers no physical complaints. He denies suicidal or homicidal ideations. He denies recreational drug or alcohol usage. Denies hallucinations. Related Data Home Medications ?Medication ?Instructions ?Recorded ?Confirmed No Known Home Meds 06/21/24 06/21/24 Allergies Allergy/AdvReac Type Severity Reaction Status Date / Time No Known Allergies Allergy Verified 06/21/24 08:26 Review of Systems Review of Systems: Yes all other systems are reviewed and are negative [facility] Past Medical History Attestation statement: The following information was validated with the patient. Source: old records reviewed Medical History Schizoaffective disorder, bipolar type Anxiety Social History Social History Household Members: Family Household Members Other:: mother and brother Housing: House Do you presently have visiting nurse or other home services: No Unable to assess alcohol history related to: Refusing to respond Alcohol intake: unknown Patient Tobacco Use Status: Never used Tobacco e-Cigarette/Vaping Use: Never Used Second Hand Smoke Exposure: Yes Use of substances other than those prescribed or required for medical reasons: Refusing to respond Substance Use Type: Marijuana and Caffiene Advance Directives: No Advance Directives Information Provided: No Do you have a plan to hurt others: No Plan service: No Sexual orientation: Don't Know Physical Exam Vital Signs: Vital Signs: Last Vital Signs Temp 97.5 F 06/22/24 08:14 Pulse 68 06/22/24 08:14 Resp 14 06/22/24 08:14 BP 119/80 06/22/24 08:14 Pulse Ox 100 03/01/25 08:14 O2 Del Method Room Air 06/22/24 08:14 BMI result Body Mass Index 24.3 Appearance: Alert.?Oriented to person Place and time. Disorganized thinking. Adequate hygiene. Eyes: Pupils equal, round and reactive to light.? ENT: Pharynx normal.?? Neck: Normal inspection.? Neck supple.?? CVS: Heart sounds normal. Normal heart rate and rhythm.? Pulses normal.?? Respiratory: No respiratory distress.? Lung sounds clear to auscultation bilaterally?? Abdomen: Soft and non-tender. Normoactive bowel sounds. Skin: Skin warm and dry.? Normal skin color.? Extremities: No lower extremity edema.? Neuro: Moves all extremities spontaneously. Sensation intact bilaterally. CN II-XII intact. No focal neuro deficits. Ambulates with normal steady gait. Course Course Course Narrative: observation continued VS stable given PO zyprexa this AM IBPS. will continue to monitor. Medications Administered Discontinued Medications Generic Name Dose Route Start Last Admin Trade Name Alexa PRN Reason Stop Dose Admin Olanzapine 5 mg 06/21/24 12:39 06/21/24 12:59 Olanzapine 5 Mg Tablet PO 06/21/24 12:40 5 mg ONCE ONE Administration Olanzapine 10 mg 06/22/24 09:13 06/22/24 09:16 Olanzapine Odt 10 Mg Tab.Rapdis TRANSLINGU 06/22/24 09:14 Not Given ONCE ONE Olanzapine 5 mg 06/22/24 09:13 06/22/24 09:18 Olanzapine 5 Mg Tablet PO 06/22/24 09:14 5 mg ONCE ONE Administration Medical Decision Making Medical Decision Making [facility] Narrative: Patient is a 23-year-old male who presents emergency department for evaluation appearing manic at the time my evaluation, does not appear to be responding to any internal external stimuli, denying any suicidal or homicidal ideations, denying hallucinations. Denying recreational drug or alcohol usage. Mother concerned about his behavior being very erratic from his baseline. Consult care team for safe disposition and placement. Obtain serum labs for medical clearance. Differential Diagnosis Differential Diagnoses: The differential diagnosis associated with the presentation includes (See narrative above and below for further detail) Admission/Observation Consideration of admission/observation: Escalation of care including admission/observation considered Patient is being observed in the Emergency Department for Manic behavior. Observation time was started at 10:00 on 06/21/2024.?The patient is currently stable and non-toxic appearing. Observation is being initiated in the Emergency Department to allow time to help differentiate if the patient's manic behavior is due to Substance Induced Mood Disorder and Anxiety versus Major Depressive Disorder, Bipolar Maria Guadalupe, Bipolar Depression, and Schizophrenia. The patient will receive frequent psychiatric assessments from the provider as well as from nursing staff. The patient will also be monitored for the need of PRN agitation medications such as Haldol, Ativan, and Benadryl. Consult Healthcare Provider Management of the patient was discussed with: Behavioral Health Provider (CARE team) Evaluated by care team, deemed an inpatient bed search Lab Data MDM Lab Attestation statement: I reviewed the patient's lab results. CBC is without leukocytosis anemia or thrombocytopenia. No electrolyte derangement. No YELENA. LFTs overall unremarkable. Urinalysis without evidence of infection. Urine toxicology is negative. Ethyl alcohol level nondetectable. 06/21/24 08:59 06/21/24 08:59 Labs: Lab Results 06/21/24 Range/Units 08:59 WBC 6.3 (4.8-10.8) X10*3/uL RBC 5.29 (4.60-5.80) X10*6/uL Hgb 15.5 (14.0-18.0) g/dl Hct 45.9 (42.0-52.0) % MCV 86.8 (80.0-98.0) fL MCH 29.3 (27.0-33.0) pg MCHC 33.8 (31.0-36.0) g/dl RDW 12.7 (11.0-16.0) % Plt Count 173 (160-400) X10*3/uL MPV 10.3 (9.4-12.4) fL Immature Gran % (Auto) 0.3 (0.0-0.4) % Neut % (Auto) 70.4 (45-73) % Lymph % (Auto) 18.7 L (20-40) % Bond % (Auto) 8.7 (2-11) % Eos % (Auto) 1.3 (0-4) % Baso % (Auto) 0.6 (0-2) % Lymph # (Auto) 1.2 (1.2-4.9) X10*3/uL Bond # (Auto) 0.6 (0.1-1.2) X10*3/uL Eos # (Auto) 0.1 (0.0-0.4) X10*3/uL Baso # (Auto) 0.0 (0.0-0.2) X10*3/uL Abs Immat Gran (auto) 0.02 (0.00-0.03) X10*3/uL Absolute Neuts (auto) 4.4 (2.0-8.3) x10*3/uL Absolute Nucleated RBC 0.000 (0.0-0.012) X10*3/uL Nucleated RBC % (auto) 0.0 (0.0-0.2) /100WBC Sodium 139 (135-145) mmol/L Potassium 3.8 (3.3-5.1) mmol/L Chloride 105 (96-108) mmol/L Carbon Dioxide 25 (22-29) mmol/L Anion Gap 13 (12-20) BUN 7 L (9-16) mg/dL Creatinine 1.10 (0.5-1.4) mg/dL Estim Creat Clear Calc 101.0 Estimated GFR > 60 Random Glucose 117 H (60-115) mg/dL Calcium 9.3 (8.4-10.2) mg/dL Total Bilirubin 0.9 (0.0-1.0) mg/dL AST 24 (5-37) U/L ALT 18 (0-40) U/L Alkaline Phosphatase 76 (39-117) U/L Total Protein 8.4 H (6.5-8.0) g/dL Albumin 4.0 (3.5-5.0) g/dL Urine Color Yellow Urine Appearance Clear Urine pH 6.5 (5.0-9.0) Ur Specific [place] 1.020 (1.005-1.025) Urine Protein Trace (Neg-Trace) mg/dL Urine Glucose (UA) Negative (Negative) mg/dL Urine Ketones Negative (Negative) mg/dL Urine Blood Trace H (Negative) Urine Nitrite Negative (Negative) Ur Leukocyte Esterase Negative (Negative) Urine RBC 3-5 H (0-2) /HPF Urine WBC 0-5 (0-5) /HPF Ur Squamous Epith Cells 0-2 (0-2) /HPF Urine Bacteria None Seen (None Seen) Hyaline Casts 0-2 (0-2) /LPF Urine Opiates Screen Not Detected (Not Detect) Ur Buprenorphine Scrn Not Detected (Not Detect) ng/mL Ur Oxycodone Screen Not Detected (Not Detect) ng/mL Urine Methadone Screen Not Detected (Not Detect) ng/mL Urine Fentanyl Screen Not Detected (Not Detect) Ur Barbiturates Screen Not Detected (Not Detect) Ur Phencyclidine Scrn Not Detected (Not Detect) Ur Amphetamines Screen Not Detected (Not Detect) U Benzodiazepines Scrn Not Detected (Not Detect) Urine Cocaine Screen Not Detected (Not Detect) U Marijuana (THC) Screen Not Detected (Not Detect) Ethyl Alcohol < 10 mg/dL Independent Historian Clinical information obtained from an independent historian. History obtained from or confirmed by: Parent External Record Review External record reviewed: Outpatient record Discharge Plan Discharge Clinical Impression: Psychosis Patient Disposition: Still a Patient Prescriptions: No Action No Known Home Meds Interventions: [place]-Suicide Risk Severity Scale Last Done: 06/21/24 08:48 Print Language: Bulgarian
--- NOTE | 2024-06-21 12:17 | PC.NURSE ---
Pt pacing around the BH pod, having difficulty maintaining boundaries with other patients, entering their rooms, mocking other patients for crying. Pt redirected multiple times verbally by this RN and other staff. Patient made aware that he needs to practice keeping boundaries with others. CIRCULAR SHEAR OPERATOR Misbah made aware via tiger text
[2024-06-21] MEDS: OLANZapine 5 MG TABLET PO (12:59)
[2024-06-21 14:00] VITALS: RESP 14
--- NOTE | 2024-06-21 15:34 | PC.NURSE ---
Pt continues to maintain poor boundaries with others, frequently walking into others rooms, sharing food when asked not to. He is easily redirectable verbally
--- NOTE | 2024-06-21 19:51 | PC.NURSE ---
patient appears to remain at rest presently respirations are even and unlabored patient appears in no distress, no medications ordered for this client presently
[2024-06-21 20:24] VITALS: BP 124/85; PULSE 70; RESP 18; TEMP 36.9; O2SAT 98
--- NOTE | 2024-06-21 21:00 | PC.NURSE ---
patient asked to leave instructed t/w he wanted to leave t/w told him that wasnt possible tody
--- NOTE | 2024-06-22 00:20 | PC.NURSE ---
client asks about being reassessed by care team uses rest room and returns to his room and self dialogues.
--- NOTE | 2024-06-22 05:42 | PC.NURSE ---
intrusive, enters into conversations by talking at people.
[2024-06-22 08:14] VITALS: BP 119/80; PULSE 68; RESP 14; TEMP 36.4; O2SAT 100
[2024-06-22] MEDS: OLANZapine 5 MG TABLET PO (09:18)
--- NOTE | 2024-06-22 09:18 | PC.NURSE ---
Pt pacing in pod, engaging other pt's, walking tonto pt rooms at times; pt agreeable to 5 mg xyprexa po per orders
--- NOTE | 2024-06-22 12:52 | MHC.EDTECH ---
patient is aware his mother took his cellphone home .
[2024-06-22] MEDS: LORazepam 1 MG TABLET 2 MG PO (14:41)
[2024-06-22] MEDS: HaloperidoL 5 MG TABLET PO (14:41)
--- NOTE | 2024-06-22 14:42 | PC.NURSE ---
Pt becoming more disorganized, pacing, mumbling to self and anxious; MD made aware; pt medicated per orders for anxiety
[2024-06-22 17:17] VITALS: BP 116/65; PULSE 65; RESP 14; TEMP 36.4; O2SAT 100
--- NOTE | 2024-06-22 19:24 | PC.NURSE ---
patient appears in no distress presently periodically napping in common area, appears in no distress, at t/w's arrival, patient was requesting snacks and activites.
--- NOTE | 2024-06-23 04:37 | PC.NURSE ---
patient making frequent reuests for snacks, activities not following directions patient strted doing push ups in his doorway and when redirected refused. patient seems to be trying to make an arugment that hes being treated differently than other patients (other client dc and he feels other people are getting preferred tx
--- NOTE | 2024-06-23 07:13 | PC.NURSE ---
Assumed care of patient at 0645, patient appears to be in no apparent distress this am, showering at this time, calm and cooperative. Continue plan of care for IPLOC
[2024-06-23 08:04] VITALS: BP 127/90; PULSE 71; RESP 20; TEMP 36.5; O2SAT 98
--- NOTE | 2024-06-23 09:16 | PHA.MEDREC ---
Pharmacy Consult ? Medication Reconciliation Pharmacy has completed the medication reconciliation. Reviewed med rec done by nursing.
--- NOTE | 2024-06-23 11:28 | PM.PSYCN ---
History of Present Illness Date of Service: 06/23/2024 Chief Complaint: Crisis Reason for Consult: med recs HPI Narrative: CTSP in ED for 2 days re medication recommendations. chart reviewed, pt interviewed. pt with previous admissions for psychosis and siri. trajectory of illness made Dx indeterminate at first, but over time a bipolar diathesis disorder appears declared. this was discussed with pt, who rejected the assessment, although politely. he initially said he would take whatever MD prescribed for him, but once MD discussed lithium, pt stated he would not take lithium and would only take zyprexa, which he has been on in the past. pt was moderately euphoric, and appeared to serially reject MD's assessments and recommendations. MD informed pt MD felt obliged as a mental health professional to Rx lithium and let pt refuse t when it was offered. pt indicated understanding and that he intended to refuse the lithium, although he did question whether or not medication refusal would be likely to cause him to remain in the hospital. he denied SI/HI/AVH and indicated he was in a great mood. Past Psychiatric History: IP: A don Ramirez, [facility], OP: No, I did not go Trials: Yes, denies SE, however family tells team he had had SE [facility] Medical History Schizoaffective disorder, bipolar type Anxiety Family History: affirms Social History: I am born from the [facility] being Nikhil is the only child from his biological parents who were never . His father lives in [place] and has little to no contact with him. He grew up with his mother. Each of his parents have 3 other children from other relationships. He did finish high school and states that he is in college at [employer]. He has had no marriages no children. He denies any history of abuse. Trauma History: Life has been my trauma Diagnostics Vital Signs (24Hr): Vital Signs - 24 hr 06/22/24 17:17 06/23/24 08:04 Temperature 97.5 F 97.7 F Pulse Rate 65 71 Respiratory Rate 14 20 Blood Pressure 116/65 127/90 H Pulse Oximetry 100 98 Oxygen Delivery Method Room Air Room Air BMI result Body Mass Index 24.3 Labs 06/21/24 08:59 06/21/24 08:59 Mental Status Exam Mental Status Exam Narrative: Pt is alert and oriented; behavior is cooperative and calm; dressed in casual attire; mood is described as it's been great ; eye contact appropriate; Speech is normal rate, volume and not pressured; thought process is organized, paranoid; Thought content is on discharge; affect flexible. appears somewhat euphoric. denies SI/HI/VH/AH. Medications Medications Current Medications Halls Carbonate (Halls Carbonate Er 450 Mg Tablet.Er) 450 mg PO BID BARNEY Olanzapine (Olanzapine 10 Mg Tablet) 10 mg PO BEDTIME BARNEY Allergies Allergies Allergy/AdvReac Type Severity Reaction Status Date / Time No Known Allergies Allergy Verified 06/21/24 08:26 Assessment & Plan Assessment & Plan (1) Schizoaffective disorder, bipolar type: Status: Acute Code(s): F25.0 - Schizoaffective disorder, bipolar type Plan poor insight, appears to deny mental illness. states he will not take lithium but he will take zyprexa. zyprexa 10 QHS lithium 450 BID Total time managing care of this patient today __55__ minutes.
[2024-06-23] MEDS: Lithium Carbonate ER 450 MG TABLET.ER PO ×2 (11:56→20:01)
[2024-06-23 16:21] VITALS: BP 140/82; PULSE 91; RESP 16; TEMP 37.2; O2SAT 99
--- NOTE | 2024-06-23 19:11 | PC.NURSE ---
Patient continues to struggle with boundaries, talking with other individuals, offering them items and inserting himself in conversations that do not pertain to him. He is currently sitting in the common area watching TV
[2024-06-23] MEDS: OLANZapine 10 MG TABLET PO (20:01)
--- NOTE | 2024-06-23 22:46 | PC.NURSE ---
assumed care of this patient at this time. Patient is currently pacing and continue to intrude on others conversations. Is easily re-directable. Presents to nurses station for sandwich, sandwich given. Patient remains pacing on the unit.
[2024-06-24 05:06] VITALS: BP 132/79; PULSE 83; RESP 17; TEMP 36.3; O2SAT 98
[2024-06-24] MEDS: Lithium Carbonate ER 450 MG TABLET.ER PO ×2 (08:02→20:18)
--- NOTE | 2024-06-24 08:23 | ECG_ITS ---
Test Reason : check prolong qt Blood Pressure : */* mmHG Vent. Rate : 68 BPM Atrial Rate : 68 BPM P-R Int : 126 ms QRS Dur : 114 ms QT Int : 384 ms P-R-T Axes : 62 58 68 degrees QTcB Int : 408 ms Normal sinus rhythm Brugada pattern, type 1 Abnormal ECG When compared with ECG of 08-Feb-2023 10:32, No significant change was found Referred By: Generic ED Physician Electronically Signed By: DOUGLAS MARTÍNEZ MD
--- NOTE | 2024-06-24 09:01 | ECG_ITS ---
Test Reason : MED CLEARANCE Blood Pressure : */* mmHG Vent. Rate : 70 BPM Atrial Rate : 70 BPM P-R Int : 128 ms QRS Dur : 98 ms QT Int : 382 ms P-R-T Axes : 64 64 72 degrees QTcB Int : 412 ms Normal sinus rhythm Brugada pattern, type 1 Abnormal ECG When compared with ECG of 24-Jun-2024 08:52, No significant change was found Referred By: Jerrod Collazo Electronically Signed By: DOUGLAS MARTÍNEZ MD
--- NOTE | 2024-06-24 11:11 | PC.NURSE ---
pt just keeps pacing back and forth all morning, pt also took a shower this am
--- NOTE | 2024-06-24 12:02 | PC.NURSE ---
report given to Tata rn on m3
[2024-06-24 12:07] VITALS: BP 133/84; PULSE 70; RESP 16; TEMP 37.1; O2SAT 98
--- NOTE | 2024-06-24 13:08 | P.HPPS_ITS ---
[facility] Date of Service: 06/24/24 Chief Complaint: Crisis Sources of Information: patient interviewed, chart reviewed and crisis/core team assessment reviewed HPI Subjective Notes: [place] Warning and Conditional Voluntary Narrative: Patient is a 23-year-old male with history of schizoaffective disorder who self presented to [facility] with his mother due to making bizarre statements secondary to medication noncompliance. Per crisis report, patient's mother reported that she has noticed increasingly bizarre behavior over the past weeks and believes that patient is having a psychotic episode . She reports patient has not been sleeping and has been pacing the house all night; saying nonsensical things to his mother. Reports he has not been compliant with his psychiatric medications. history of multiple inpatient psychiatric hospitalizations. patient denies SI/HI/VH/AH. He did not appear to be responding to internal stimuli. Patient does not have outpatient psychiatric providers due to not following up with treatment recommendations. No history of SA/SIB. During admission assessment, patient presents alert and oriented x3. Calm and cooperative. Patient reports he feels fine ; patient stated, my mother was worried about me because I was talking shit. So she thought it would be good to go to the hospital. I manifested coming here. I said it was fine because it will be an adventure . Patient reports he has been medication noncompliant since discharging from the hospital in October 2023. Patient stated, I don't believe in your medications. Nothing is more powerful than God. The medications are a placebo . Patient reports he is agreeable to taking medications while inpatient. Patient reports he would like a referral to a therapist who will, talk to me without bringing up medications . Patient denies SI/HI/VH/AH. Past Psychiatric History: History of multiple inpatient psychiatric hospitalizations. Does not have outpatient psychiatric providers due to not following up with appointments. Denies history of SA/SIB. Medical Evaluation Reviewed: Yes [facility], [facility] Medical History Schizoaffective disorder, bipolar type Anxiety Family History: affirms Social History: His father lives in [place] and has little to no contact with him. He grew up with his mother. Each of his parents have 3 other children from other relationships. He did finish high school and states that he is in college at [employer]. He has had no marriages no children. Substance History: Denies Trauma History: denies Diagnostics Vital Signs (24Hr): Vital Signs - 24 hr 06/23/24 16:21 06/24/24 05:06 06/24/24 12:07 Temperature 99.0 F 97.4 F 98.8 F Pulse Rate 91 83 70 Respiratory Rate 16 17 16 Blood Pressure 140/82 H 132/79 133/84 Pulse Oximetry 99 98 98 Oxygen Delivery Method Room Air Room Air Room Air BMI result Body Mass Index 24.3 Labs 06/21/24 08:59 06/24/24 13:03 Meds/Allergies Meds Home Medications ?Medication ?Instructions ?Recorded ?Confirmed ?Type No Known Home Meds 06/21/24 06/21/24 History Allergies Allergies Allergy/AdvReac Type Severity Reaction Status Date / Time No Known Allergies Allergy Verified 06/21/24 08:26 Mental Status Exam Mental Status Exam Narrative: Pt is alert and oriented; behavior is cooperative, friendly and calm; dressed in casual attire; mood is described as good ; eye contact appropriate; Speech is normal rate, volume and not pressured; organized, grandiose, religiously preoccupied; denies SI/HI/VH/AH. Assessment & Plan Assessment & Plan (1) Schizoaffective disorder, bipolar type: Status: Acute Code(s): F25.0 - Schizoaffective disorder, bipolar type Plan Patient is a 23-year-old male with history of schizoaffective disorder who self presented to [facility] with his mother due to making bizarre statements secondary to medication noncompliance. Plan: CV 15 minute safety checks Continue medications from previous hospitalization Obtain collateral Encourage medication compliance Referral to outpatient psychiatric providers Encourage groups Discharge planning Patient educated on: diagnosis and medication risk/benefits Reason for continued inpatient stay Substantial Risk for: med/psych decompensation Statement Statement: I have reviewed the history and physical and performed a pertinent examination on my patient. No changes have occurred unless specified. If the History and Physical was not performed prior to admission, the Hospitalist's service will be consulted for completing the admission physical. Time Spent With Patient Time: Total time managing care of this patient today _60___ minutes.
[2024-06-24 13:14] VITALS: BP 141/87; PULSE 83; RESP 18; TEMP 36.7; O2SAT 99; BMI 24.4
[2024-06-24 13:46] LABS: Alanine Aminotransferase 23 U/L (0-40); Albumin Level 3.9 g/dL (3.5-5.0); Alkaline Phosphatase 74 U/L (39-117); Anion Gap 10 (12-20); Aspartate Amino Transferase 27 U/L (5-37); Bilirubin Total 0.1 mg/dL (0.0-1.0); Blood Urea Nitrogen 17 mg/dL (9-16); Calcium 9.2 mg/dL (8.4-10.2); Carbon Dioxide 28 mmol/L (22-29); Chloride 105 mmol/L (96-108); Creatinine Clr Calc Pharmacy 118.2; Estimated Glomerular Filt Rate > 60; Glucose Random 57 mg/dL (60-115); Potassium 3.8 mmol/L (3.3-5.1); Sodium 139 mmol/L (135-145); Total Protein 8.3 g/dL (6.5-8.0)
[2024-06-24 14:04] LABS: Glucose, Whole Blood 88 mg/dL (60-115)
--- NOTE | 2024-06-24 17:21 | PC.ADMIT ---
Nursing admission note: 23 year old male DX: Unspecified psychotic disorder. Referred for admission by CARE team. Signed conditional voluntary for admission. Patient self presented with his mother who drove him to the emergency department reporting patient was having another psychotic episode . Patient engages easily, calm and cooperative with admission process although states I'm mad that I even have to talk about it . A+O x3. Poor insight into need for admission. Good eye contact, however intense at times with occasional bizarre head and eye movements. Good attn to ADL, dressed in hospital attire. States he is here because my mom worries too much, worries that I am sick, not healthy, mentally not all right . Patient states I want to live my life, go to school, play my game . Denies depression or anxiety, denies SI/HI plan or intent. Speech normal rate, tone and prosody. Patient thoughts are disorganized. Denies A/V hallucinations, states the only voice he hears is the one in my head, my spirit, and I tell it what to do . Denies paranoia or suspiciousness. Denies sleep disturbances however reports insomnia. States I sleep as long as I want . Denies appetite disturbance. No observed or reported medical problems. TOX screen negative. Patient is non smoker. Patient oriented to unit, placed on 15 minute safety checks. See nursing assessment, crisis evaluation for further details.
[2024-06-24] MEDS: Flu Vacc TS2024-25(6mos up)/PF 0.5 ML SYRINGE IM (18:42)
[2024-06-24 20:00] VITALS: BP 116/63; PULSE 90; RESP 16; TEMP 36.2; O2SAT 96
[2024-06-24] MEDS: OLANZapine 10 MG TABLET PO (20:18)
[2024-06-25 07:47] VITALS: BP 116/66; PULSE 65; RESP 18; TEMP 35.9; O2SAT 98
[2024-06-25] MEDS: Lithium Carbonate ER 450 MG TABLET.ER PO ×2 (08:38→20:23)
[2024-06-25 08:45] LABS: Cholesterol 95 mg/dL (<200); HDL Cholesterol 37 mg/dL (>40); LDL Cholesterol Calculated 48 mg/dL (<100); Triglycerides 54 mg/dL (<150)
--- NOTE | 2024-06-25 09:58 | P.PNPSI_ITS ---
Subjective Subjective Date of Service: 06/25/24 Reason For Visit: Crisis Subjective Notes: Conditional Voluntary Interim History: Active on unit, pacing hallway. Patient reports feeling great today; denies any side effects from restarting medications. per nursing, slept 2 hours last night. medication compliant. denies SI/HI/VH/AH. pt does not believe he has a mental illness but agrees to taking medications while inpatient. He plans on visiting with his mother today. Medication Compliance: Yes Side effects from medications: No Attending Groups: Yes Mental Status Exam Mental Status Exam Narrative: Pt is alert and oriented; behavior is cooperative and calm; dressed in casual attire; mood is described as good ; eye contact appropriate; Speech is normal rate, volume and not pressured; organized, guarded, poor insight regarding mental illness; denies SI/HI/VH/AH. Diagnostics Vital Signs (24Hr): Vital Signs - 24 hr 06/24/24 12:07 06/24/24 13:14 06/24/24 20:00 Temperature 98.8 F 98.0 F 97.1 F Pulse Rate 70 83 90 Respiratory Rate 16 18 16 Blood Pressure 133/84 141/87 H 116/63 Pulse Oximetry 98 99 96 Oxygen Delivery Method Room Air Room Air Room Air 06/25/24 07:47 Temperature 96.7 F L Pulse Rate 65 Respiratory Rate 18 Blood Pressure 116/66 Pulse Oximetry 98 Oxygen Delivery Method Room Air BMI result Body Mass Index 24.4 Labs 06/21/24 08:59 06/24/24 13:03 Labs: Laboratory Results - last 48 hr 06/24/24 06/24/24 06/25/24 13:03 13:59 08:09 Sodium 139 Potassium 3.8 Chloride 105 Carbon Dioxide 28 Anion Gap 10 L BUN 17 H Creatinine 0.94 Estim Creat Clear Calc 118.2 Estimated GFR > 60 POC Glucose 88 Random Glucose 57 L* Calcium 9.2 Total Bilirubin 0.1 AST 27 ALT 23 Alkaline Phosphatase 74 Total Protein 8.3 H Albumin 3.9 Triglycerides 54 Cholesterol 95 LDL Cholesterol, Calc 48 HDL Cholesterol 37 L Medications Medications Current Medications Acetaminophen (Acetaminophen 325 Mg Tablet) 650 mg PO Q6H PRN PRN Reason: Headache/Pain, Scale 1-10 Al Hydroxide/Mg Hydroxide (Magnesium Hydrox/Alum Hydrox 30 Ml Oral.Susp) 30 ml PO Q6H PRN PRN Reason: Heartburn/Nausea Hydroxyzine HCl (Hydroxyzine Hcl 25 Mg Tablet) 25 mg PO Q6H PRN PRN Reason: mild anxiety [place] Carbonate ([place] Carbonate Er 450 Mg Tablet.Er) 450 mg PO BID [facility] Last Admin: 06/25/24 08:38 Dose: 450 mg Magnesium Hydroxide (Milk Of Magnesia 30 Ml Oral.Susp) 30 ml PO DAILY PRN PRN Reason: Constipation Nicotine (Nicotine 21 Mg Patch.Td24) 21 mg TRANSDERMA DAILY [facility] Last Admin: 06/25/24 08:39 Dose: Not Given Nicotine Polacrilex (Nicotine Polacrilex 2 Mg Gum) 4 mg BUCCAL Q2H PRN PRN Reason: Nicotine Cravings Olanzapine (Olanzapine 10 Mg Tablet) 10 mg PO BEDTIME [facility] Last Admin: 06/24/24 20:18 Dose: 10 mg Trazodone HCl (Trazodone Hcl 50 Mg Tablet) 50 mg PO BEDTIME MRX1 PRN PRN Reason: Insomnia Allergies Allergies Allergy/AdvReac Type Severity Reaction Status Date / Time No Known Allergies Allergy Verified 06/21/24 08:26 Assessment & Plan Assessment & Plan (1) Schizoaffective disorder, bipolar type: Status: Acute Code(s): F25.0 - Schizoaffective disorder, bipolar type Plan Patient is a 23-year-old male with history of schizoaffective disorder who self presented to [facility] [place] ER with his mother due to making bizarre statements secondary to medication noncompliance. Plan: CV 15 minute safety checks Continue medications from previous hospitalization Obtain collateral Encourage medication compliance Referral to outpatient psychiatric providers Encourage groups Discharge planning 06/25: Active on unit, pacing hallway. Patient reports feeling great today; denies any side effects from restarting medications. per nursing, slept 2 hours last night. medication compliant. denies SI/HI/VH/AH. pt does not believe he has a mental illness but agrees to taking medications while inpatient. He plans on visiting with his mother today. Continue to encourage medication compliance and outpatient treatment. Patient educated on: diagnosis and medication risk/benefits Reason for continued inpatient stay Substantial Risk for: med/psych decompensation Time Spent With Patient Time: Total time managing care of this patient today _20___ minutes.
[2024-06-25 20:20] VITALS: BP 128/72; PULSE 80; RESP 16; TEMP 37.2; O2SAT 97
[2024-06-25] MEDS: OLANZapine 10 MG TABLET PO (20:23)
[2024-06-26 07:50] VITALS: BP 130/78; PULSE 68; RESP 18; TEMP 36.2; O2SAT 98
[2024-06-26] MEDS: Lithium Carbonate ER 450 MG TABLET.ER PO (08:35)
--- NOTE | 2024-06-26 09:54 | P.PNPSI_ITS ---
Subjective Subjective Date of Service: 06/26/24 Reason For Visit: Crisis Subjective Notes: 3 Day Interim History: Active on unit, pacing hallway. Signed 3 day notice; believes he signed 3 day notice on admission, however was educated that he signed a CV. Pt became frustrated with T/W and did not want to continue conversation. medication compliant. attending groups. per nursing, slept 3 hours last night. Medication Compliance: Yes Side effects from medications: No Attending Groups: Yes Mental Status Exam Mental Status Exam Narrative: Pt is alert and oriented; behavior is cooperative and calm; dressed in casual attire; mood is described as good ; eye contact appropriate; Speech is normal rate, volume and not pressured; organized, guarded, focused on discharge; denies SI/HI/VH/AH. Diagnostics Vital Signs (24Hr): Vital Signs - 24 hr 06/25/24 20:20 06/26/24 07:50 Temperature 98.9 F 97.1 F Pulse Rate 80 68 Respiratory Rate 16 18 Blood Pressure 128/72 130/78 Pulse Oximetry 97 98 Oxygen Delivery Method Room Air Room Air BMI result Body Mass Index 24.4 Labs 06/21/24 08:59 06/24/24 13:03 Labs: Laboratory Results - last 48 hr 06/24/24 06/24/24 06/25/24 13:03 13:59 08:09 Sodium 139 Potassium 3.8 Chloride 105 Carbon Dioxide 28 Anion Gap 10 L BUN 17 H Creatinine 0.94 Estim Creat Clear Calc 118.2 Estimated GFR > 60 POC Glucose 88 Random Glucose 57 L* Calcium 9.2 Total Bilirubin 0.1 AST 27 ALT 23 Alkaline Phosphatase 74 Total Protein 8.3 H Albumin 3.9 Triglycerides 54 Cholesterol 95 LDL Cholesterol, Calc 48 HDL Cholesterol 37 L Medications Medications Current Medications Acetaminophen (Acetaminophen 325 Mg Tablet) 650 mg PO Q6H PRN PRN Reason: Headache/Pain, Scale 1-10 Al Hydroxide/Mg Hydroxide (Magnesium Hydrox/Alum Hydrox 30 Ml Oral.Susp) 30 ml PO Q6H PRN PRN Reason: Heartburn/Nausea Hydroxyzine HCl (Hydroxyzine Hcl 25 Mg Tablet) 25 mg PO Q6H PRN PRN Reason: mild anxiety [place] Carbonate ([place] Carbonate Er 450 Mg Tablet.Er) 450 mg PO BID [facility] Last Admin: 06/26/24 08:35 Dose: 450 mg Magnesium Hydroxide (Milk Of Magnesia 30 Ml Oral.Susp) 30 ml PO DAILY PRN PRN Reason: Constipation Nicotine Polacrilex (Nicotine Polacrilex 2 Mg Gum) 4 mg BUCCAL Q2H PRN PRN Reason: Nicotine Cravings Olanzapine (Olanzapine 10 Mg Tablet) 10 mg PO BEDTIME [facility] Last Admin: 06/25/24 20:23 Dose: 10 mg Trazodone HCl (Trazodone Hcl 50 Mg Tablet) 50 mg PO BEDTIME MRX1 PRN PRN Reason: Insomnia Allergies Allergies Allergy/AdvReac Type Severity Reaction Status Date / Time No Known Allergies Allergy Verified 06/21/24 08:26 Assessment & Plan Assessment & Plan (1) Schizoaffective disorder, bipolar type: Status: Acute Code(s): F25.0 - Schizoaffective disorder, bipolar type Plan Patient is a 23-year-old male with history of schizoaffective disorder who self presented to [facility] with his mother due to making bizarre statements secondary to medication noncompliance. Plan: CV 15 minute safety checks Continue medications from previous hospitalization Obtain collateral Encourage medication compliance Referral to outpatient psychiatric providers Encourage groups Discharge planning 06/25: Active on unit, pacing hallway. Patient reports feeling great today; denies any side effects from restarting medications. per nursing, slept 2 hours last night. medication compliant. denies SI/HI/VH/AH. pt does not believe he has a mental illness but agrees to taking medications while inpatient. He plans on visiting with his mother today. Continue to encourage medication compliance and outpatient treatment. 06/26: Active on unit, pacing hallway. Signed 3 day notice; believes he signed 3 day notice on admission, however was educated that he signed a CV. Pt became frustrated with T/W and did not want to continue conversation. medication compliant. attending groups. per nursing, slept 3 hours last night. Patient educated on: diagnosis and medication risk/benefits Reason for continued inpatient stay Substantial Risk for: med/psych decompensation Time Spent With Patient Time: Total time managing care of this patient today _20___ minutes.
--- NOTE | 2024-06-26 10:45 | PC.NURSE ---
Pt signed a 3 day, up on 07/01/24Monday
[2024-06-26 20:00] VITALS: BP 134/86; PULSE 76; RESP 16; TEMP 36.9; O2SAT 98
[2024-06-27] MEDS: OLANZapine 10 MG TABLET PO ×2 (01:42→20:06)
[2024-06-27] MEDS: Lithium Carbonate ER 450 MG TABLET.ER PO ×3 (01:42→20:06)
--- NOTE | 2024-06-27 01:44 | PC.NURSE ---
06/27/24 pt came up to RN station requested his HS medication at [address] he [address] declined[address] Dr Murali Zaragoza notified. Medications given at 0145
[2024-06-27 07:00] VITALS: BMI 25.4
[2024-06-27 07:43] VITALS: BP 135/88; PULSE 90; RESP 16; TEMP 36.2; O2SAT 99
--- NOTE | 2024-06-27 12:01 | P.PNPSI_ITS ---
Subjective Subjective Date of Service: 06/27/24 Reason For Visit: Crisis Subjective Notes: 3 Day Interim History: Active on unit, pacing hallway. 3 day notice up on 07/01/24. medication compliant. attending groups. Patient reports feeling good ; asking to be discharged tomorrow, rather than Monday. He reports feeling bored here and sleeping too much . denies SI/HI/VH/AH. [place] level to be drawn tomorrow morning. Medication Compliance: Yes Side effects from medications: No Attending Groups: Yes Mental Status Exam Mental Status Exam Narrative: Pt is alert and oriented; behavior is cooperative and calm; dressed in casual attire; mood is described as good ; eye contact appropriate; Speech is normal rate, volume and not pressured; organized, focused on discharge; denies SI/HI/VH/AH. Diagnostics Vital Signs (24Hr): Vital Signs - 24 hr 06/26/24 20:00 06/27/24 07:43 Temperature 98.4 F 97.2 F Pulse Rate 76 90 Respiratory Rate 16 16 Blood Pressure 134/86 135/88 Pulse Oximetry 98 99 Oxygen Delivery Method Room Air Room Air BMI result Body Mass Index 25.4 Labs 06/21/24 08:59 06/24/24 13:03 Medications Medications Current Medications Acetaminophen (Acetaminophen 325 Mg Tablet) 650 mg PO Q6H PRN PRN Reason: Headache/Pain, Scale 1-10 Al Hydroxide/Mg Hydroxide (Magnesium Hydrox/Alum Hydrox 30 Ml Oral.Susp) 30 ml PO Q6H PRN PRN Reason: Heartburn/Nausea Hydroxyzine HCl (Hydroxyzine Hcl 25 Mg Tablet) 25 mg PO Q6H PRN PRN Reason: mild anxiety [place] Carbonate ([place] Carbonate Er 450 Mg Tablet.Er) 450 mg PO BID [facility] Last Admin: 06/27/24 08:24 Dose: 450 mg Magnesium Hydroxide (Milk Of Magnesia 30 Ml Oral.Susp) 30 ml PO DAILY PRN PRN Reason: Constipation Nicotine Polacrilex (Nicotine Polacrilex 2 Mg Gum) 4 mg BUCCAL Q2H PRN PRN Reason: Nicotine Cravings Olanzapine (Olanzapine 10 Mg Tablet) 10 mg PO BEDTIME [facility] Last Admin: 06/27/24 01:42 Dose: 10 mg Trazodone HCl (Trazodone Hcl 50 Mg Tablet) 50 mg PO BEDTIME MRX1 PRN PRN Reason: Insomnia Allergies Allergies Allergy/AdvReac Type Severity Reaction Status Date / Time No Known Allergies Allergy Verified 06/21/24 08:26 Assessment & Plan Assessment & Plan (1) Schizoaffective disorder, bipolar type: Status: Acute Code(s): F25.0 - Schizoaffective disorder, bipolar type Plan Patient is a 23-year-old male with history of schizoaffective disorder who self presented to [facility] with his mother due to making bizarre statements secondary to medication noncompliance. Plan: CV 15 minute safety checks Continue medications from previous hospitalization Obtain collateral Encourage medication compliance Referral to outpatient psychiatric providers Encourage groups Discharge planning 06/25: Active on unit, pacing hallway. Patient reports feeling great today; denies any side effects from restarting medications. per nursing, slept 2 hours last night. medication compliant. denies SI/HI/VH/AH. pt does not believe he has a mental illness but agrees to taking medications while inpatient. He plans on visiting with his mother today. Continue to encourage medication compliance and outpatient treatment. 06/26: Active on unit, pacing hallway. Signed 3 day notice; believes he signed 3 day notice on admission, however was educated that he signed a CV. Pt became frustrated with T/W and did not want to continue conversation. medication compliant. attending groups. per nursing, slept 3 hours last night. 06/27: Active on unit, pacing hallway. 3 day notice up on 07/01/24. medication compliant. attending groups. Patient reports feeling good ; asking to be discharged tomorrow, rather than Monday. He reports feeling bored here and sleeping too much . denies SI/HI/VH/AH. [place] level to be drawn tomorrow morning. Patient educated on: diagnosis and medication risk/benefits Reason for continued inpatient stay Substantial Risk for: med/psych decompensation Time Spent With Patient Time: Total time managing care of this patient today _20___ minutes.
[2024-06-27 19:51] VITALS: BP 126/73; PULSE 77; RESP 16; TEMP 37; O2SAT 99
[2024-06-27] MEDS: traZODone HCL 50 MG TABLET PO (21:21)
[2024-06-28 08:00] VITALS: BP 107/58; PULSE 66; RESP 16; TEMP 36.4; O2SAT 98
[2024-06-28] MEDS: Lithium Carbonate ER 450 MG TABLET.ER PO (08:25)
[2024-06-28 09:02] LABS: Anion Gap 9 (12-20); Blood Urea Nitrogen 15 mg/dL (9-16); Carbon Dioxide 29 mmol/L (22-29); Chloride 105 mmol/L (96-108); Estimated Glomerular Filt Rate > 60; Potassium 4.2 mmol/L (3.3-5.1); Sodium 139 mmol/L (135-145)
[2024-06-28 11:14] LABS: Lithium 0.51 mmol/L (0.60-1.20)
--- NOTE | 2024-06-28 11:19 | PM.PSYDC ---
DS: Providers Provider Date of Service: 06/28/24 Date of admission: 06/24/24 11:38 Date of discharge: 06/28/24 Primary care physician: None Physician Admitting clinician: Deanne Mantilla Attending physician on admission: Cristino Hummel Attending physician on discharge: Cristino Hummel Discharging clinician: Deanne Mantilla DS: Diagnosis Discharge Diagnosis (1) Schizoaffective disorder, bipolar type: Status: Acute DS: Medications Discharge Medications Home Medications: Home Medications ?Medication ?Instructions ?Recorded ?Confirmed No Known Home Meds 06/21/24 06/21/24 Mental Status Exam Mental Status Exam Narrative: Pt is alert and oriented; behavior is cooperative and calm; dressed in casual attire; mood is described as good ; eye contact appropriate; Speech is normal rate, volume and not pressured; organized, focused on discharge; denies SI/HI/VH/AH. Data Data Completed and Pending Completed studies during hospitalization [Text1]: 06/24/24 06/24/24 06/25/24 13:03 13:59 08:09 Sodium 139 Potassium 3.8 Chloride 105 Carbon Dioxide 28 Anion Gap 10 L BUN 17 H Creatinine 0.94 Estim Creat Clear Calc 118.2 Estimated GFR > 60 POC Glucose 88 Random Glucose 57 L* Calcium 9.2 Total Bilirubin 0.1 AST 27 ALT 23 Alkaline Phosphatase 74 Total Protein 8.3 H Albumin 3.9 Triglycerides 54 Cholesterol 95 LDL Cholesterol, Calc 48 HDL Cholesterol 37 L [place] 06/28/24 08:23 Sodium 139 Potassium 4.2 Chloride 105 Carbon Dioxide 29 Anion Gap 9 L BUN 15 Creatinine 1.01 Estim Creat Clear Calc 110.0 Estimated GFR > 60 POC Glucose Random Glucose Calcium Total Bilirubin AST ALT Alkaline Phosphatase Total Protein Albumin Triglycerides Cholesterol LDL Cholesterol, Calc HDL Cholesterol [place] 0.51 L DS: Summary Hospital Course Hospital Course: Patient is a 23-year-old male with history of schizoaffective disorder who self presented to [facility] ER with his mother due to making bizarre statements secondary to medication noncompliance. Per crisis report, patient's mother reported that she has noticed increasingly bizarre behavior over the past weeks and believes that patient is having a psychotic episode . She reports patient has not been sleeping and has been pacing the house all night; saying nonsensical things to his mother. Reports he has not been compliant with his psychiatric medications. history of multiple inpatient psychiatric hospitalizations. patient denies SI/HI/VH/AH. He did not appear to be responding to internal stimuli. Patient does not have outpatient psychiatric providers due to not following up with treatment recommendations. No history of SA/SIB. During admission assessment, patient presents alert and oriented x3. Calm and cooperative. Patient reports he feels fine ; patient stated, my mother was worried about me because I was talking shit. So she thought it would be good to go to the hospital. I manifested coming here. I said it was fine because it will be an adventure . Patient reports he has been medication noncompliant since discharging from the hospital in October 2023. Patient stated, I don't believe in your medications. Nothing is more powerful than God. The medications are a placebo . Patient reports he is agreeable to taking medications while inpatient. Patient reports he would like a referral to a therapist who will, talk to me without bringing up medications . Patient denies SI/HI/VH/AH. Plan: CV 15 minute safety checks Continue medications from previous hospitalization Obtain collateral Encourage medication compliance Referral to outpatient psychiatric providers Encourage groups Discharge planning Active on unit, pacing hallway. Patient reports feeling great today; denies any side effects from restarting medications. per nursing, slept 2 hours last night. medication compliant. denies SI/HI/VH/AH. pt does not believe he has a mental illness but agrees to taking medications while inpatient. He plans on visiting with his mother today. Continue to encourage medication compliance and outpatient treatment. Active on unit, pacing hallway. Signed 3 day notice; believes he signed 3 day notice on admission, however was educated that he signed a CV. Pt became frustrated with T/W and did not want to continue conversation. medication compliant. attending groups. per nursing, slept 3 hours last night. Active on unit, pacing hallway. 3 day notice up on 07/01/24. medication compliant. attending groups. Patient reports feeling good ; asking to be discharged tomorrow, rather than Monday. He reports feeling bored here and sleeping too much . denies SI/HI/VH/AH. [place] level to be drawn tomorrow morning. Patient continues to report feeling good today; lithium level 0.51 on 06/28/24. per nursing, slept 5 hours last night. Encouraged to continue medication compliance and to follow up with outpatient providers. denies SI/HI/VH/AH. Discharged home with mother. Status at Discharge Cognitive/behavioral status at discharge: Patient has a safety plan that includes presenting to the closest ER or calling 911 if feeling unsafe. Functional status at discharge: independent ambulation Overall status at discharge: patient is back to baseline Time Spent with Patient Time attestation: Total time managing care of this patient today _20___ minutes. Time spent: Less than 30 minutes Discharge Plan Discharge Anticipated Discharge Date/Time: 06/28/24 12:00 Patient Disposition: Home, Self-Care Discharge Diagnosis: Schizoaffective d/o Referrals: [facility] [Other] - 1 Week (Walk in to make an appointment or use the email address to schedule an appointment [email or web address]) [facility] [Provider Group] - 1 Week (06-28-24 [facility] was added to patients chart. Please call [phone] to schedule your follow up appt within 7-10 days of discharge.) Discharge Medications: New olanzapine 10 mg Tablet 10 mg PO BEDTIME 30 Days Qty: 30 0RF lithium carbonate 450 mg Tablet Extended Release 450 mg PO BID 30 Days Qty: 60 0RF Discharge Orders: Discharge Order (Routine); Ordered 06/28/24 Ordered By: Deanne Mantilla Diet: Regular diet Activity on Discharge: As tolerated Stand Alone Forms: Patient Portal Discharge page, Community Support Print Language: Yakut Care Plan Goals: Maintain mood and safe behaviors Take medications as prescribed Practice coping skills Continue with outpatient providers and reach out to them as needed Health Concerns: Mood stability and behaviors Plan of Treatment: Follow up with your PCP, psychiatric provider and other outpatient providers regarding above concerns Take medications as prescribed Assessment: Patient has a safety plan that includes presenting to the closest ER or calling 911 if feeling unsafe. Discharge Date/Time: 06/28/24 11:53
== END 2024-06-28 11:53 | disposition home or self-care (01) | DRG 750 ==
LOC: HO.ED 10:39 → HO.PADLT16 06-24 11:42
PROVIDERS: Admitting Provider Registered Nurse; Emergency Provider Emergency Medicine; Responsible Provider Registered Nurse; Visit Provider Psychiatry & Neurology Psychiatry
DX: F25.0 Schizoaffective disorder, bipolar type (principal); Z23 Encounter for immunization; Z79.899 Other long term (current) drug therapy
CPT/HCPCS: 36415; 80051; 80053; 80061; 80178; 80307; 81001; 82565; 82947; 84520; 85025; 90656; 93005; 99285; S9485

== ENCOUNTER → 2024-06-21 08:33 | Outpatient (BNV) | payer OTHER, SELFPAY | PROVIDERS: Emergency Provider Emergency Medicine; Visit Provider Psychiatry & Neurology Psychiatry | DX: F25.0 Schizoaffective disorder, bipolar type (principal) | CPT/HCPCS: 90792; 99231; 99238 ==

== ENCOUNTER → 2024-06-24 08:23 | Outpatient (BNV) | payer OTHER, SELFPAY | PROVIDERS: Admitting Provider Registered Nurse; Emergency Provider Emergency Medicine; Responsible Provider Registered Nurse; Visit Provider Internal Medicine Cardiovascular Disease | DX: R94.31 Abnormal electrocardiogram [ECG] [EKG] (principal); Z13.6 Encounter for screening for cardiovascular disorders | CPT/HCPCS: 93010 ==

== ENCOUNTER 2024-07-14 09:23 | Inpatient (IN) | payer OTHER, SELFPAY ==
--- NOTE | ~2024-07-14 | XR_ITS ---
EXAMINATION: XR CHEST CLINICAL INFORMATION: pain COMPARISON: September 11, 2013. TECHNIQUE: Frontal view of the chest was obtained. FINDINGS: No consolidation, pleural effusion or pneumothorax. Cardiomediastinal silhouette size is normal. Osseous structures are intact. Mild dextroconvex curvature in the mid thoracic spine. XR/XR chest 1V IMPRESSION: No acute airspace disease. Electronically signed by: Blue Chauhan MD 07/16/2024 09:47 AM EDT
[2024-07-14 09:25] VITALS: BP 128/88; PULSE 86; RESP 16; TEMP 36.6; O2SAT 98; BMI 25.4
[2024-07-14 09:40] VITALS: RESP 18
--- NOTE | 2024-07-14 09:44 | PC.NURSE ---
Nikhil comes in from home, brought in by mom, non-compliant with medications. patient was discharged from upstairs in early june from the inpatient unit after starting med adjustments. Per patient, he has not been taking these medications as he deems them unecessary. Patient denies SI/HI/AH/VH. Patient does have delusions, is wandering around [facility] pod praising the high ups
--- NOTE | 2024-07-14 09:54 | ED.PSYCH ---
HPI - Psych General Chief Complaint: Psychiatric Symptoms Stated Complaint: crisis Time Seen by Provider: 07/14/24 09:44 Source: patient Mode of arrival: ambulatory History of Present Illness HPI Narrative: This is 23 years old the patient with a history of bipolar disorder not take his medicine presented to the emergency department with the erratic behavior, he is talking to himself Onset (ago): day(s) (1) Duration: constant History of same: Yes Relieving factors: none Exacerbating factors: none Context: not taking psychiatric medications Associated psychiatric symptoms: racing thoughts Associated symptoms: denies other symptoms Treatments prior to arrival: none Related Data Previous Rx's ?Medication ?Instructions ?Recorded lithium carbonate 450 mg 450 mg PO BID 30 days #60 tabs 06/28/24 tablet,extended release olanzapine 10 mg tablet 10 mg PO BEDTIME 30 days #30 tabs 06/28/24 Allergies Allergy/AdvReac Type Severity Reaction Status Date / Time No Known Allergies Allergy Verified 07/14/24 09:27 Review of Systems Review of Systems: Yes Unobtainable due to mental condition [facility] Past Medical History Medical History Schizoaffective disorder, bipolar type Anxiety Social History Social History Household Members: Family Household Members Other:: 3 Housing: Apartment Do you presently have visiting nurse or other home services: No Unable to assess alcohol history related to: Refusing to respond Alcohol intake: current Patient Tobacco Use Status: Never used Tobacco Smoked in Last 30 Days: No e-Cigarette/Vaping Use: Never Used Second Hand Smoke Exposure: No Use of substances other than those prescribed or required for medical reasons: No Substance Use Type: Marijuana Advance Directives: No Advance Directives Information Provided: Yes service: No Sexual orientation: Unable to collect Physical Exam Vital Signs: Vital Signs: Last Vital Signs Temp 97.9 F 07/14/24 09:25 Pulse 86 07/14/24 09:25 Resp 18 07/14/24 09:40 BP 128/88 07/14/24 09:25 Pulse Ox 98 07/14/24 09:25 O2 Del Method Room Air 07/14/24 09:25 BMI result Body Mass Index 25.4 Const: General: cooperative Nutritional Appearance: average body habitus Orientation/consciousness: patient oriented x3 HEENT: Head: Yes normal to inspection Ears: hearing grossly normal bilaterally General nose exam: Normal external nose present Face and sinus: Yes normal facial exam Mouth: Normal oral and palatal mucosa present Neck: Neck: Yes normal visual inspection Chest: Chest palpation & inspection: normal inspection of the chest Resp: Effort & Inspection: normal respiratory effort Auscultation: clear to auscultation bilaterally Cardio: Jugular venous distension: no JVD Rate: regular rate Rhythm: regular rhythm GI: Inspection: Yes normal to inspection Palpation (GI): Soft to palpation Auscultation: normal bowel sounds Neuro: General: patient oriented x3 Cranial nerves: Yes CN's II-XII intact bilaterally Motor exam (neuro): 5/5 motor strength present throughout Course Reevaluation(s) Reevaluation #1: waiting for crisis eval will signed out to Dr Peterson Time: 16:22 Medications Administered Discontinued Medications Generic Name Dose Route Start Last Admin Trade Name Freq PRN Reason Stop Dose Admin Olanzapine 10 mg 07/14/24 12:48 07/14/24 12:51 Olanzapine 10 Mg Tablet PO 07/14/24 12:49 10 mg ONCE ONE Administration Medical Decision Making Medical Decision Making [facility] Narrative: Patient presented with psychosis will consult crisis Differential Diagnosis Differential Diagnoses: The differential diagnosis associated with the presentation includes Psychosis/bipolar disorder/substance abuse Lab Data 07/14/24 14:29 07/14/24 14:29 Labs: Lab Results 07/14/24 07/14/24 Range/Units 09:52 14:29 WBC 7.0 (4.8-10.8) X10*3/uL RBC 5.17 (4.60-5.80) X10*6/uL Hgb 15.4 (14.0-18.0) g/dl Hct 43.0 (42.0-52.0) % MCV 83.2 (80.0-98.0) fL MCH 29.8 (27.0-33.0) pg MCHC 35.8 (31.0-36.0) g/dl RDW 13.2 (11.0-16.0) % Plt Count 301 D (160-400) X10*3/uL MPV 10.0 (9.4-12.4) fL Immature Gran % (Auto) 0.3 (0.0-0.4) % Neut % (Auto) 54.7 (45-73) % Lymph % (Auto) 28.2 (20-40) % [place] % (Auto) 11.9 H (2-11) % Eos % (Auto) 4.5 H (0-4) % Baso % (Auto) 0.4 (0-2) % Lymph # (Auto) 2.0 (1.2-4.9) X10*3/uL [place] # (Auto) 0.8 (0.1-1.2) X10*3/uL Eos # (Auto) 0.3 (0.0-0.4) X10*3/uL Baso # (Auto) 0.0 (0.0-0.2) X10*3/uL Abs Immat Gran (auto) 0.02 (0.00-0.03) X10*3/uL Absolute Neuts (auto) 3.8 (2.0-8.3) x10*3/uL Absolute Nucleated RBC 0.000 (0.0-0.012) X10*3/uL Nucleated RBC % (auto) 0.0 (0.0-0.2) /100WBC Sodium 138 (135-145) mmol/L Potassium 3.7 (3.3-5.1) mmol/L Chloride 108 (96-108) mmol/L Carbon Dioxide 22 (22-29) mmol/L Anion Gap 12 (12-20) BUN 15 (9-16) mg/dL Creatinine 1.05 (0.5-1.4) mg/dL Estim Creat Clear Calc 105.8 Estimated GFR > 60 Random Glucose 107 (60-115) mg/dL Calcium 8.8 (8.4-10.2) mg/dL Total Bilirubin 0.6 (0.0-1.0) mg/dL AST 30 (5-37) U/L ALT 47 H (0-40) U/L Alkaline Phosphatase 84 (39-117) U/L Total Protein 8.3 H (6.5-8.0) g/dL Albumin 4.0 (3.5-5.0) g/dL Urine Color Yellow Urine Appearance Clear Urine pH 5.5 (5.0-9.0) Ur Specific [place] 1.015 (1.005-1.025) Urine Protein Negative (Neg-Trace) mg/dL Urine Glucose (UA) Negative (Negative) mg/dL Urine Ketones 15 (Negative) mg/dL Urine Blood Negative (Negative) Urine Nitrite Negative (Negative) Ur Leukocyte Esterase Negative (Negative) Urine Opiates Screen Not Detected (Not Detect) Ur Buprenorphine Scrn Not Detected (Not Detect) ng/mL Ur Oxycodone Screen Not Detected (Not Detect) ng/mL Urine Methadone Screen Not Detected (Not Detect) ng/mL Urine Fentanyl Screen Not Detected (Not Detect) Ur Barbiturates Screen Not Detected (Not Detect) Ur Phencyclidine Scrn Not Detected (Not Detect) Ur Amphetamines Screen Not Detected (Not Detect) U Benzodiazepines Scrn Not Detected (Not Detect) [place] < 0.10 L (0.60-1.20) mmol/L Urine Cocaine Screen Not Detected (Not Detect) U Marijuana (THC) Screen Not Detected (Not Detect) Ethyl Alcohol < 10 mg/dL Discharge Plan Discharge Clinical Impression: Bipolar disorder Prescriptions: No Action olanzapine 10 mg Tablet 10 mg PO BEDTIME 30 Days Qty: 30 0RF lithium carbonate 450 mg Tablet Extended Release 450 mg PO BID 30 Days Qty: 60 0RF Interventions: Porter-Suicide Risk Severity Scale Last Done: 07/14/24 09:40 Print Language: Hebrew
[2024-07-14 10:07] LABS: Appearance Urine Clear; Color Urine Yellow; Glucose Urine UA Negative (Negative); Leukocyte Esterase Urine Negative (Negative); Nitrite Urine Negative (Negative); PH 5.5 (5.0-9.0); Specific Gravity - Urine 1.015 (1.005-1.025); Urine Blood Negative (Negative); Urine Ketones 15 mg/dL (Negative); Urine Protein Negative (Neg-Trace)
[2024-07-14 10:09] LABS: Amphetamine Screen Urine Not Detected (Not Detect); Barbiturates, Urine Not Detected (Not Detect); Benzodiazepines Screen Urine Not Detected (Not Detect); Buprenorphine Scr Not Detected (Not Detect); Cannabinoid Screen Urine Not Detected (Not Detect); Cocaine Screen Urine Not Detected (Not Detect); Fentanyl, urine Not Detected (Not Detect); Methadone Screen, Urine Not Detected (Not Detect); Opiate Screen Urine Not Detected (Not Detect); Oxycodone Screen Urine Not Detected (Not Detect); Phencyclidine Screen Urine Not Detected (Not Detect)
--- NOTE | 2024-07-14 10:34 | PC.NURSE ---
patient refused blood draw
[2024-07-14] MEDS: OLANZapine 10 MG TABLET PO (12:51)
[2024-07-14 14:33] LABS: MANUAL DIFF FLAG NO
[2024-07-14 14:34] LABS: Basophils Percent Auto 0.4 % (0-2); Eosinophils Absolute Auto 0.3 X10*3/uL (0.0-0.4); Eosinophils Percent Auto 4.5 % (0-4); Hemoglobin 15.4 g/dl (14.0-18.0); Imm Gran Abs Auto 0.02 X10*3/uL (0.00-0.03); Imm Gran Pct Auto 0.3 % (0.0-0.4); Lymphocytes Percent Auto 28.2 % (20-40); Mean Corpuscular HGB Conc 35.8 g/dl (31.0-36.0); Mean Corpuscular Hemoglobin 29.8 pg (27.0-33.0); Mean Corpuscular Volume 83.2 fL (80.0-98.0); Monocytes Absolute Auto 0.8 X10*3/uL (0.1-1.2); Monocytes Percent Auto 11.9 % (2-11); Neutrophils Absolute Auto 3.8 x10*3/uL (2.0-8.3); Neutrophils Percent Auto 54.7 % (45-73); Platelet Count 301 X10*3/uL (160-400); Red Blood Count 5.17 X10*6/uL (4.60-5.80); Red Cell Distribution Width 13.2 % (11.0-16.0)
[2024-07-14 14:47] LABS: Lithium < 0.10 mmol/L (0.60-1.20)
[2024-07-14 14:48] LABS: Alanine Aminotransferase 47 U/L (0-40); Alkaline Phosphatase 84 U/L (39-117); Anion Gap 12 (12-20); Aspartate Amino Transferase 30 U/L (5-37); Bilirubin Total 0.6 mg/dL (0.0-1.0); Blood Urea Nitrogen 15 mg/dL (9-16); Calcium 8.8 mg/dL (8.4-10.2); Carbon Dioxide 22 mmol/L (22-29); Chloride 108 mmol/L (96-108); Creatinine Clr Calc Pharmacy 105.8; Estimated Glomerular Filt Rate > 60; Ethanol < 10 mg/dL; Glucose Random 107 mg/dL (60-115); Potassium 3.7 mmol/L (3.3-5.1); Sodium 138 mmol/L (135-145); Total Protein 8.3 g/dL (6.5-8.0)
[2024-07-14 18:10] VITALS: PULSE 74; RESP 16; O2SAT 98
[2024-07-15 00:20] VITALS: BP 132/82; PULSE 89; RESP 16; TEMP 36.9; O2SAT 97
[2024-07-15] MEDS: Lithium Carbonate ER 450 MG TABLET.ER PO ×2 (01:43→09:27)
[2024-07-15] MEDS: LORazepam 1 MG TABLET 2 MG PO (01:44)
[2024-07-15] MEDS: OLANZapine 10 MG TABLET PO ×2 (01:44→21:06)
[2024-07-15 06:00] VITALS: RESP 16
--- NOTE | 2024-07-15 07:56 | PHA.MEDREC ---
Pharmacy Consult ? Medication Reconciliation Pharmacy has reviewed the medication reconciliation completed by nursing. Medications match discharge packet from 06/24/24.
--- NOTE | 2024-07-15 08:50 | ECG_ITS ---
Test Reason : med clearance Blood Pressure : */* mmHG Vent. Rate : 95 BPM Atrial Rate : 95 BPM P-R Int : 122 ms QRS Dur : 102 ms QT Int : 360 ms P-R-T Axes : 68 49 61 degrees QTcB Int : 452 ms Normal sinus rhythm Junctional ST depression, probably normal Borderline ECG When compared with ECG of 24-Jun-2024 13:19, No significant change was found Referred By: Jerrod Collazo Electronically Signed By: DOUGLAS MARTÍNEZ MD
[2024-07-15 10:31] LABS: Influenza A PCR NEGATIVE (Negative); Influenza B PCR NEGATIVE (Negative); Resp Syncy Virus RNA Qual PCR NEGATIVE (Negative); SARS COV2 PCR INHOUSE NEGATIVE (Negative)
[2024-07-15 14:47] VITALS: BMI 25.4
--- NOTE | 2024-07-15 15:52 | P.HPPS_ITS ---
HPI Date of Service: 07/15/24 Chief Complaint: Maria Guadalupe HPI Narrative: pt tolerated only a brief interview with , where he signed CV and 3-day notice and initially agreed to restart his prior medications regimen, then recanted bcse he did not want to have blood draws. he denies any safety concerns. per CARE team wiliam, pt self-presented to [facility] ED with his mother due to erratic behaviors, delusions, and praising the high ups. pt reportedly has not taken his medication since discharge from [facility] 06/28/24. per CARE team wiliam, pt presented with intense eye contact, PMA of pacing, thought disorganization, and bizarre questions/statements such as go to the next level. per collateral from pt's mother, pt has not been sleeping. Past Psychiatric History: History of multiple inpatient psychiatric hospitalizations. Does not have outpatient psychiatric providers due to not following up with appointments. Denies history of SA/SIB. Medical Evaluation Reviewed: Yes [facility], [facility] Medical History Schizoaffective disorder, bipolar type Anxiety Family History: affirms Social History: His father lives in [place] and has little to no contact with him. He grew up with his mother. Each of his parents have 3 other children from other relationships. He did finish high school and states that he is in college at [employer]. He has had no marriages no children. Substance History: none, per mother utox NEG Trauma History: denies Diagnostics Vital Signs (24Hr): Vital Signs - 24 hr 07/14/24 18:10 07/15/24 00:20 07/15/24 06:00 Temperature 98.5 F Pulse Rate 74 89 Respiratory Rate 16 16 16 Blood Pressure 132/82 Pulse Oximetry 98 97 Oxygen Delivery Method Room Air Room Air BMI result Body Mass Index 25.4 Labs 07/14/24 14:29 07/14/24 14:29 Labs: Laboratory Results - last 48 hr 07/14/24 07/14/24 07/15/24 09:52 14:29 09:38 WBC 7.0 RBC 5.17 Hgb 15.4 Hct 43.0 MCV 83.2 MCH 29.8 MCHC 35.8 RDW 13.2 Plt Count 301 D MPV 10.0 Immature Gran % (Auto) 0.3 Neut % (Auto) 54.7 Lymph % (Auto) 28.2 [place] % (Auto) 11.9 H Eos % (Auto) 4.5 H Baso % (Auto) 0.4 Lymph # (Auto) 2.0 [place] # (Auto) 0.8 Eos # (Auto) 0.3 Baso # (Auto) 0.0 Abs Immat Gran (auto) 0.02 Absolute Neuts (auto) 3.8 Absolute Nucleated RBC 0.000 Nucleated RBC % (auto) 0.0 Sodium 138 Potassium 3.7 Chloride 108 Carbon Dioxide 22 Anion Gap 12 BUN 15 Creatinine 1.05 Estim Creat Clear Calc 105.8 Estimated GFR > 60 Random Glucose 107 Calcium 8.8 Total Bilirubin 0.6 AST 30 ALT 47 H Alkaline Phosphatase 84 Total Protein 8.3 H Albumin 4.0 Urine Color Yellow Urine Appearance Clear Urine pH 5.5 Ur Specific [place] 1.015 Urine Protein Negative Urine Glucose (UA) Negative Urine Ketones 15 Urine Blood Negative Urine Nitrite Negative Ur Leukocyte Esterase Negative Urine Opiates Screen Not Detected Ur Buprenorphine Scrn Not Detected Ur Oxycodone Screen Not Detected Urine Methadone Screen Not Detected Urine Fentanyl Screen Not Detected Ur Barbiturates Screen Not Detected Ur Phencyclidine Scrn Not Detected Ur Amphetamines Screen Not Detected U Benzodiazepines Scrn Not Detected [place] < 0.10 L Urine Cocaine Screen Not Detected U Marijuana (THC) Screen Not Detected Ethyl Alcohol < 10 Influenza Type A (PCR) NEGATIVE Influenza Type B (PCR) NEGATIVE RSV RNA Qual (PCR) NEGATIVE SARS-CoV-2 RNA (RT-PCR) NEGATIVE Meds/Allergies Allergies Allergies Allergy/AdvReac Type Severity Reaction Status Date / Time No Known Allergies Allergy Verified 07/14/24 09:27 Mental Status Exam Mental Status Exam Narrative: Pt is alert and oriented; behavior is cooperative and calm; dressed in casual attire; mood is described as i'm never in a mood; eye contact appropriate; Speech is normal rate, volume and not pressured; thought process is disorganized, paranoid; Thought content is on discharge; affect constricted. denies SI/HI/VH/AH. Assessment & Plan Assessment & Plan (1) Bipolar disorder: Status: Acute Code(s): F31.9 - Bipolar disorder, unspecified Plan restart olanzapine 10 mg QHS. restart lithium but at higher dose of 600 BID due to low level at discharge last admission (0.51) with Rx of 450 BID. Patient educated on: medication risk/benefits Reason for continued inpatient stay Substantial Risk for: inability to function Statement Statement: I have reviewed the history and physical and performed a pertinent examination on my patient. No changes have occurred unless specified. If the History and Physical was not performed prior to admission, the Hospitalist's service will be consulted for completing the admission physical. Time Spent With Patient Time: Total time managing care of this patient today __55__ minutes.
--- NOTE | 2024-07-15 16:33 | PC.ADMIT ---
Nursing admission note: 23 year old male DX: Unspecified psychosis. Referred for treatment by CARE team. Signed conditional voluntary for admission followed by 3 day notice. Patient self presented to [facility] with his mother, per crisis evaluation, patient has been non complaint with medications, engaging in erratic behaviors, delusional and praising the higher ups. Patient cooperative with admission process. A+O x3, poor insight into reason for admission. Presents in hospital attire, appears to be attending to ADL's, good eye contact. Thoughts are disorganized. States he is here because I do what I want and they get scared and punish my ass . Reports the cycle gets repeated I scare people, she can't accept that I'll be okay, thinks everything is a mental health problem . That's the cycle of life, I control the energy . I know what you're thinking. The power of God, twitch, twitch . Denies mood disturbance, denies SI/HI at this time. Denies A/V hallucinations. Reports I don't believe in that shit . Denies appetite disturbances. Reports I sleep when I want . TOX screen negative. Denies drug or alcohol use, non smoker. No acute medical problems reported. Patient oriented to unit. Placed on unit safety checks. See nursing assessment/crisis evaluation for further details.
[2024-07-15 20:00] VITALS: BP 125/71; PULSE 96; RESP 16; TEMP 36.8; O2SAT 98
[2024-07-15] MEDS: Lithium Carbonate ER 300 MG TABLET.ER 600 MG PO (21:06)
[2024-07-16] MEDS: hydrOXYzine HCL 25 MG TABLET PO (04:37)
[2024-07-16 07:42] VITALS: BP 119/87; PULSE 135; RESP 16; TEMP 39.2; O2SAT 97
[2024-07-16] MEDS: Acetaminophen 325 MG TABLET 650 MG PO (07:55)
[2024-07-16] MEDS: Lithium Carbonate ER 300 MG TABLET.ER 600 MG PO ×2 (07:55→20:04)
--- NOTE | 2024-07-16 09:29 | PC.NURSE ---
Pt febrile this am 102.5, reports right sided inspiratory pain and denies all other symptoms. Tylenol administered at 0800. Temp still 100.[address] Raya informed and cxr ordered. Awaiting result
--- NOTE | 2024-07-16 11:18 | HO.PM.IMCN ---
History of Present Illness Data of Consult Service Date: 07/16/24 Primary Care Provider: Karen Goldsmith MD [facility] Reason for consult: fevers, tachycardia 23 year old male admitted for adult psychiatry with consult placed to hospitalist service due to fever 102.5 and tachycardia with HR 123 this morning. The patient reports sweats and chills this morning. Has had congestion for a long time he states. Throat irritation. Denies cough but coughs during exam. Dry. Denies h/a, sinus pain, abd pain, n/v/d, neck pain, dysuria, hematuria, increased urinary frequency, myalgias. No rashes/lesions. No hx IVDA. Fever resolved with tylenol. Pt refusing labs. CXR negative for acute cardiopulmonary abnormality. Review of Systems Review of Systems: ROS as noted in [facility] Medical History Psychosis Schizoaffective disorder, bipolar type Anxiety Social History Household Members: Family Household Members Other:: mother, brother and nephew Housing: Apartment Do you presently have visiting nurse or other home services: No Unable to assess alcohol history related to: Refusing to respond Alcohol intake: current Patient Tobacco Use Status: Never used Tobacco Smoked in Last 30 Days: No e-Cigarette/Vaping Use: Never Used Patient Interested in Nicotine Replacement: No Patient Given Instructions on How to Stop Smoking: No Second Hand Smoke Exposure: No Use of substances other than those prescribed or required for medical reasons: No Substance Use Type: Marijuana Substance Use Type Other:: denies Currently Displaying Signs/Symptoms of Drug Intoxication Withdrawal: No Any prior treatment program specific to substance use: No Have you been hit, kicked, punched, or otherwise hurt by someone within the past year? If so, by whom?: No Do you feel safe in your current relationship?: No Current Relationship Is there a partner from a previous relationship who is making you feel unsafe now?: No Are you made to feel afraid or neglected: No Spiritual Healthcare Practices: Yes I believe in God Gnosticist Healthcare Practices: Confucianism Advance Directives: No Advance Directives Information Provided: Yes Do you have thoughts of harming others: None Do you have a plan to hurt others: No Plan Recently lost weight without trying: No Eating poorly because of decreased appetite: No Nutrition Risks: No Nutritional Risk Poor oral hygiene: No service: No Sexual orientation: Straight/Heterosexual Meds Allergies Allergy/AdvReac Type Severity Reaction Status Date / Time No Known Allergies Allergy Verified 07/14/24 09:27 Active Medications: Current Medications Acetaminophen (Acetaminophen 325 Mg Tablet) 650 mg PO Q6H PRN PRN Reason: Headache/Pain, Scale 1-10 Last Admin: 07/16/24 07:55 Dose: 650 mg Al Hydroxide/Mg Hydroxide (Magnesium Hydrox/Alum Hydrox 30 Ml Oral.Susp) 30 ml PO Q6H PRN PRN Reason: Heartburn/Nausea Hydroxyzine HCl (Hydroxyzine Hcl 25 Mg Tablet) 25 mg PO Q6H PRN PRN Reason: mild anxiety or nasal congesti Last Admin: 07/16/24 04:37 Dose: 25 mg [place] Carbonate ([place] Carbonate Er 300 Mg Tablet.Er) 600 mg PO BID BARNEY Last Admin: 07/16/24 07:55 Dose: 600 mg Magnesium Hydroxide (Milk Of Magnesia 30 Ml Oral.Susp) 30 ml PO DAILY PRN PRN Reason: Constipation Nicotine Polacrilex (Nicotine Polacrilex 2 Mg Gum) 4 mg BUCCAL Q2H PRN PRN Reason: Nicotine Cravings Olanzapine (Olanzapine 10 Mg Tablet) 20 mg PO BEDTIME BARNEY Trazodone HCl (Trazodone Hcl 50 Mg Tablet) 50 mg PO BEDTIME MRX1 PRN PRN Reason: Insomnia Physical Exam Vital Signs and Narrative: Vital Signs: Last Vital Signs Temp 102.5 F H 07/16/24 07:42 Pulse 135 H 07/16/24 07:42 Resp 16 07/16/24 07:42 BP 119/87 07/16/24 07:42 Pulse Ox 97 07/16/24 07:42 O2 Del Method Room Air 07/16/24 07:42 BMI result Body Mass Index 25.4 Constitutional - Awake and Alert, No apparent distress Eyes - PERRLA, EOMI Mouth/Throat - no lesions. Posterior oropharynx erythematous with 2+ tonsillar edema, but no exudate Ears - external ears normal, canals with some cerumen but no impaction, tympanic membranes pearly garcia with good cone of light no erythema or bulging Nose/Sinuses - Nasal turbinates edematous and pale with clear/white mucus noted. No maxillary or frontal sinus ttp Neck - supple. No anterior or posterior adenopathy Cardiovascular - S1S2, RRR, No edema Respiratory - Normal lung expansion, Normal respiratory effort, No respiratory distress, CTA bilaterally Gastrointestinal - NT / ND; +BS; No rebound or guarding - No CVA tenderness Skin - Warm/Dry Neurological - Alert & oriented x3, moving all extremities independently Results Labs 07/14/24 14:29 07/14/24 14:29 Imaging Radiologist's Impressions: Impressions Chest X-Ray 07/16/24 09:35 IMPRESSION: No acute airspace disease. Electronically signed by: Blue Chauhan MD 07/16/2024 09:47 AM EDT RP Assessment and Plan (1) Coronavirus infection: Status: Acute Plan 23 year old male admitted for adult psychiatry with consult placed to hospitalist service due to fever 102.5 and tachycardia with HR 123 this morning. Pt positive for coronavirus HKU1 Viral etiology, no indication for abx Symptomatic mangement tylenol prn fevers guaifenesin prn for cough afrin for congestion no more than 3 days duration Pt meeting SIRS criteria, however viral etiology. CBC ordered however pt refusing. Plan as above
[2024-07-16 12:13] LABS: Appearance Urine Clear; Color Urine Yellow; Glucose Urine UA Negative (Negative); Leukocyte Esterase Urine Negative (Negative); Nitrite Urine Negative (Negative); Specific Gravity - Urine <= 1.005 (1.005-1.025); Urine Blood Negative (Negative); Urine Ketones Negative (Negative); Urine Protein Negative (Neg-Trace)
--- NOTE | 2024-07-16 12:21 | HO.PSYCHPN ---
Subjective Subjective Date of Service: 07/16/24 Reason For Visit: Maria Guadalupe Interim History: cooeprative, friendly, disorganized. states he feels fine now, no longer with CP or feeling feverish. agreeable to CXR. per staff, pt on 3-day notice. denies Sx. tox NEG. fever 102.5 last NOC. slept 4.5 hours. got tylenol, T100 now. Mental Status Exam Mental Status Exam Narrative: Pt is alert and oriented; behavior is cooperative and calm; dressed in casual attire; mood is described as euthymic; eye contact appropriate; Speech is normal rate, volume and not pressured; thought process is disorganized; Thought content is on somatic Sx; affect flexible. no SI/HI/VH/AH expressed. Diagnostics Vital Signs (24Hr): Vital Signs - 24 hr 07/15/24 20:00 07/16/24 07:42 Temperature 98.2 F 102.5 F H Pulse Rate 96 135 H Respiratory Rate 16 16 Blood Pressure 125/71 119/87 Pulse Oximetry 98 97 Oxygen Delivery Method Room Air Room Air BMI result Body Mass Index 25.4 Labs 07/14/24 14:29 07/14/24 14:29 Labs: Laboratory Results - last 48 hr 07/14/24 07/15/24 07/16/24 14:29 09:38 12:00 WBC 7.0 RBC 5.17 Hgb 15.4 Hct 43.0 MCV 83.2 MCH 29.8 MCHC 35.8 RDW 13.2 Plt Count 301 D MPV 10.0 Immature Gran % (Auto) 0.3 Neut % (Auto) 54.7 Lymph % (Auto) 28.2 [place] % (Auto) 11.9 H Eos % (Auto) 4.5 H Baso % (Auto) 0.4 Lymph # (Auto) 2.0 [place] # (Auto) 0.8 Eos # (Auto) 0.3 Baso # (Auto) 0.0 Abs Immat Gran (auto) 0.02 Absolute Neuts (auto) 3.8 Absolute Nucleated RBC 0.000 Nucleated RBC % (auto) 0.0 Sodium 138 Potassium 3.7 Chloride 108 Carbon Dioxide 22 Anion Gap 12 BUN 15 Creatinine 1.05 Estim Creat Clear Calc 105.8 Estimated GFR > 60 Random Glucose 107 Calcium 8.8 Total Bilirubin 0.6 AST 30 ALT 47 H Alkaline Phosphatase 84 Total Protein 8.3 H Albumin 4.0 Urine Color Yellow Urine Appearance Clear Urine pH 7.0 Ur Specific [place] <= 1.005 Urine Protein Negative Urine Glucose (UA) Negative Urine Ketones Negative Urine Blood Negative Urine Nitrite Negative Ur Leukocyte Esterase Negative [place] < 0.10 L Ethyl Alcohol < 10 Influenza Type A (PCR) NEGATIVE Influenza Type B (PCR) NEGATIVE RSV RNA Qual (PCR) NEGATIVE SARS-CoV-2 RNA (RT-PCR) NEGATIVE Imaging Radiology Impressions: ITS Impressions Chest X-Ray 07/16/24 09:35 IMPRESSION: No acute airspace disease. Electronically signed by: Blue Chauhan MD 07/16/2024 09:47 AM EDT RP Medications Medications Current Medications Acetaminophen (Acetaminophen 325 Mg Tablet) 650 mg PO Q6H PRN PRN Reason: Headache/Pain, Scale 1-10 Last Admin: 07/16/24 07:55 Dose: 650 mg Al Hydroxide/Mg Hydroxide (Magnesium Hydrox/Alum Hydrox 30 Ml Oral.Susp) 30 ml PO Q6H PRN PRN Reason: Heartburn/Nausea Hydroxyzine HCl (Hydroxyzine Hcl 25 Mg Tablet) 25 mg PO Q6H PRN PRN Reason: mild anxiety or nasal congesti Last Admin: 07/16/24 04:37 Dose: 25 mg [place] Carbonate ([place] Carbonate Er 300 Mg Tablet.Er) 600 mg PO BID BARNEY Last Admin: 07/16/24 07:55 Dose: 600 mg Magnesium Hydroxide (Milk Of Magnesia 30 Ml Oral.Susp) 30 ml PO DAILY PRN PRN Reason: Constipation Nicotine Polacrilex (Nicotine Polacrilex 2 Mg Gum) 4 mg [place] Q2H PRN PRN Reason: Nicotine Cravings Olanzapine (Olanzapine 10 Mg Tablet) 20 mg PO BEDTIME [place] Oxymetazoline HCl (Oxymetazoline Hcl 0.05 % Nasal 15 Ml [place]) 2 spray NOSTRIL-B BID PRN PRN Reason: Nasal Congestion Stop: 07/19/24 11:35 Trazodone HCl (Trazodone Hcl 50 Mg Tablet) 50 mg PO BEDTIME MRX1 PRN PRN Reason: Insomnia Allergies Allergies Allergy/AdvReac Type Severity Reaction Status Date / Time No Known Allergies Allergy Verified 07/14/24 09:27 Assessment & Plan Assessment & Plan (1) Bipolar disorder: Status: Acute Code(s): F31.9 - Bipolar disorder, unspecified Plan 07/15: restart olanzapine 10 mg QHS. restart lithium but at higher dose of 600 BID due to low level at discharge last admission (0.51) with Rx of 450 BID. 07/16: continue zyprexa 10 mg QHS, continue lithium 600 BID. hospitalist consult for CP and fever to 102.5. keep NMS or 5-HT syndrome on DDx. Reason for continued inpatient stay Substantial Risk for: inability to function Time Spent With Patient Time: Total time managing care of this patient today __25__ minutes.
[2024-07-16 13:26] LABS: Adenovirus PCR Not Detected (Not Detect.); Bordetella parapertussis PCR Not Detected (Not Detect.); Bordetella pertussis PCR Not Detected (Not Detect.); Chlamydia pneumoniae PCR Not Detected (Not Detect.); Coronavirus 229E PCR Not Detected (Not Detect.); Coronavirus HKU1 PCR Detected (Not Detect.); Coronavirus NL63 PCR Not Detected (Not Detect.); Coronavirus OC43 PCR Not Detected (Not Detect.); Human metapneumovirus PCR Not Detected (Not Detect.); Influenza A PCR Not Detected (Not Detect.); Influenza B PCR Not Detected (Not Detect.); Mycoplasma pneumoniae PCR Not Detected (Not Detect.); Parainfluenza 1 PCR Not Detected (Not Detect.); Parainfluenza 2 PCR Not Detected (Not Detect.); Parainfluenza 3 PCR Not Detected (Not Detect.); Parainfluenza 4 PCR Not Detected (Not Detect.); RSV PCR Not Detected (Not Detect.); Rhino/Enterovirus PCR Not Detected (Not Detect.)
[2024-07-16 13:37] LABS: Influenza A H1 PCR Not Detected (Not Detect.); Influenza A H1-2009 PCR Not Detected (Not Detect.); Influenza A H3 PCR Not Detected (Not Detect.); SARS-CoV-2 PCR Not Detected (Not Detect.)
[2024-07-16 16:26] LABS: Lactic Acid 1.4 mmol/L (0.5-2.0)
[2024-07-16 16:33] LABS: MANUAL DIFF FLAG NO
[2024-07-16 16:39] LABS: Basophils Percent Auto 0.2 % (0-2); Eosinophils Absolute Auto 0.2 X10*3/uL (0.0-0.4); Eosinophils Percent Auto 1.2 % (0-4); Hematocrit 42.4 % (42.0-52.0); Hemoglobin 14.4 g/dl (14.0-18.0); Imm Gran Abs Auto 0.04 X10*3/uL (0.00-0.03); Imm Gran Pct Auto 0.3 % (0.0-0.4); Lymphocytes Absolute Auto 2.1 X10*3/uL (1.2-4.9); Mean Corpuscular Hemoglobin 29.4 pg (27.0-33.0); Mean Corpuscular Volume 86.7 fL (80.0-98.0); Mean Platelet Volume 10.3 fL (9.4-12.4); Monocytes Absolute Auto 1.3 X10*3/uL (0.1-1.2); Neutrophils Percent Auto 75.3 % (45-73); Platelet Count 234 X10*3/uL (160-400); Red Blood Count 4.89 X10*6/uL (4.60-5.80); Red Cell Distribution Width 13.4 % (11.0-16.0); White Blood Count 14.6 X10*3/uL (4.8-10.8)
[2024-07-16 16:52] LABS: Monotest Negative (Negative)
[2024-07-16 17:02] LABS: Cholesterol 90 mg/dL (<200); HDL Cholesterol 39 mg/dL (>40)
[2024-07-16 17:03] LABS: LDL Cholesterol Calculated 45 mg/dL (<100); Triglycerides 33 mg/dL (<150)
[2024-07-16 20:00] VITALS: BP 133/68; PULSE 94; RESP 16; TEMP 37.2; O2SAT 99
[2024-07-16] MEDS: OLANZapine 10 MG TABLET 20 MG PO (20:04)
[2024-07-17 07:54] VITALS: BP 132/82; PULSE 77; RESP 16; TEMP 36.8; O2SAT 100
[2024-07-17] MEDS: Lithium Carbonate ER 300 MG TABLET.ER 600 MG PO ×2 (08:11→20:16)
--- NOTE | 2024-07-17 13:41 | PM.PSYDC ---
DS: Providers Provider Date of Service: 07/17/24 Date of admission: 07/15/24 12:23 Date of discharge: 07/18/24 Primary care physician: Karen Goldsmith MD Consults: 07/16/24 09:50 Consult to Hospitalist Routine Comment: Consulting Provider: [facility] Hospitalists Reason For Exam: FUO to 102.5, tachycardia to 135 DS: Diagnosis Discharge Diagnosis (1) Coronavirus infection: Status: Acute DS: Medications Discharge Medications Home Medications: Previous Rx's ?Medication ?Instructions ?Recorded lithium carbonate 300 mg 600 mg (2 x 300 mg) PO BID 30 days 07/17/24 tablet,extended release #120 tabs olanzapine 10 mg tablet 20 mg (2 x 10 mg) PO BEDTIME 30 07/17/24 days #60 tabs Mental Status Exam Mental Status Exam Narrative: Pt is alert and oriented; behavior is cooperative and calm; dressed in casual attire; mood is described as euthymic; eye contact appropriate; Speech is normal rate, volume and not pressured; thought process is disorganized; Thought content is on discharge; affect flexible. denies SI/HI/VH/AH. Data Data Completed and Pending Completed studies during hospitalization [Text1]: 07/14/24 07/14/24 07/15/24 09:52 14:29 09:38 WBC 7.0 RBC 5.17 Hgb 15.4 Hct 43.0 MCV 83.2 MCH 29.8 MCHC 35.8 RDW 13.2 Plt Count 301 D MPV 10.0 Immature Gran % (Auto) 0.3 Neut % (Auto) 54.7 Lymph % (Auto) 28.2 [place] % (Auto) 11.9 H Eos % (Auto) 4.5 H Baso % (Auto) 0.4 Lymph # (Auto) 2.0 [place] # (Auto) 0.8 Eos # (Auto) 0.3 Baso # (Auto) 0.0 Abs Immat Gran (auto) 0.02 Absolute Neuts (auto) 3.8 Absolute Nucleated RBC 0.000 Nucleated RBC % (auto) 0.0 Sodium 138 Potassium 3.7 Chloride 108 Carbon Dioxide 22 Anion Gap 12 BUN 15 Creatinine 1.05 Estim Creat Clear Calc 105.8 Estimated GFR > 60 Random Glucose 107 Lactic Acid Calcium 8.8 Total Bilirubin 0.6 AST 30 ALT 47 H Alkaline Phosphatase 84 Total Protein 8.3 H Albumin 4.0 Triglycerides Cholesterol LDL Cholesterol, Calc HDL Cholesterol Urine Color Yellow Urine Appearance Clear Urine pH 5.5 Ur Specific [place] 1.015 Urine Protein Negative Urine Glucose (UA) Negative Urine Ketones 15 Urine Blood Negative Urine Nitrite Negative Ur Leukocyte Esterase Negative Urine Opiates Screen Not Detected Ur Buprenorphine Scrn Not Detected Ur Oxycodone Screen Not Detected Urine Methadone Screen Not Detected Urine Fentanyl Screen Not Detected Ur Barbiturates Screen Not Detected Ur Phencyclidine Scrn Not Detected Ur Amphetamines Screen Not Detected U Benzodiazepines Scrn Not Detected [place] < 0.10 L Urine Cocaine Screen Not Detected U Marijuana (THC) Screen Not Detected Ethyl Alcohol < 10 Respiratory Panel Liu Adenovirus (Rapid PCR) B.pert (TEM-PCR) B.parapertussis DNA PCR C. pneumoniae DNA (PCR) Coronavirus OC43 (PCR) Coronavirus HKU1 (PCR) Coronavirus 229E (PCR) Coronavirus NL63 (PCR) Monoscreen Human Metapneumovir PCR Influenza A (RT-PCR) Influenza A (H1) PCR Influ A (H1/09) PCR Influenza A (H3) PCR Influenza Type A (PCR) NEGATIVE Influenza B (RT-PCR) Influenza Type B (PCR) NEGATIVE M. pneumoniae (PCR) Parainfluenza 1 (PCR) Parainfluenza 2 (PCR) Parainfluenza 3 (PCR) Parainfluenza 4 (PCR) RSV (PCR) RSV RNA Qual (PCR) NEGATIVE Entero/Rhino (PCR) SARS-CoV-2 RNA (RT-PCR) NEGATIVE 07/16/24 07/16/24 07/16/24 11:50 12:00 16:06 WBC 14.6 H RBC 4.89 Hgb 14.4 Hct 42.4 MCV 86.7 MCH 29.4 MCHC 34.0 RDW 13.4 Plt Count 234 MPV 10.3 Immature Gran % (Auto) 0.3 Neut % (Auto) 75.3 H Lymph % (Auto) 14.0 L [place] % (Auto) 9.0 Eos % (Auto) 1.2 Baso % (Auto) 0.2 Lymph # (Auto) 2.1 [place] # (Auto) 1.3 H Eos # (Auto) 0.2 Baso # (Auto) 0.0 Abs Immat Gran (auto) 0.04 H Absolute Neuts (auto) 11.0 H Absolute Nucleated RBC 0.000 Nucleated RBC % (auto) 0.0 Sodium Potassium Chloride Carbon Dioxide Anion Gap BUN Creatinine Estim Creat Clear Calc Estimated GFR Random Glucose Lactic Acid 1.4 Calcium Total Bilirubin AST ALT Alkaline Phosphatase Total Protein Albumin Triglycerides 33 Cholesterol 90 LDL Cholesterol, Calc 45 HDL Cholesterol 39 L Urine Color Yellow Urine Appearance Clear Urine pH 7.0 Ur Specific [place] <= 1.005 Urine Protein Negative Urine Glucose (UA) Negative Urine Ketones Negative Urine Blood Negative Urine Nitrite Negative Ur Leukocyte Esterase Negative Urine Opiates Screen Ur Buprenorphine Scrn Ur Oxycodone Screen Urine Methadone Screen Urine Fentanyl Screen Ur Barbiturates Screen Ur Phencyclidine Scrn Ur Amphetamines Screen U Benzodiazepines Scrn [place] Urine Cocaine Screen U Marijuana (THC) Screen Ethyl Alcohol Respiratory Panel Liu See Note Adenovirus (Rapid PCR) Not Detected B.pert (TEM-PCR) Not Detected B.parapertussis DNA PCR Not Detected C. pneumoniae DNA (PCR) Not Detected Coronavirus OC43 (PCR) Not Detected Coronavirus HKU1 (PCR) Detected A Coronavirus 229E (PCR) Not Detected Coronavirus NL63 (PCR) Not Detected Monoscreen Negative Human Metapneumovir PCR Not Detected Influenza A (RT-PCR) Not Detected Influenza A (H1) PCR Not Detected Influ A (H1/09) PCR Not Detected Influenza A (H3) PCR Not Detected Influenza Type A (PCR) Influenza B (RT-PCR) Not Detected Influenza Type B (PCR) M. pneumoniae (PCR) Not Detected Parainfluenza 1 (PCR) Not Detected Parainfluenza 2 (PCR) Not Detected Parainfluenza 3 (PCR) Not Detected Parainfluenza 4 (PCR) Not Detected RSV (PCR) Not Detected RSV RNA Qual (PCR) Entero/Rhino (PCR) Not Detected SARS-CoV-2 RNA (RT-PCR) Not Detected Imaging Diagnostic Imaging Impressions Chest X-Ray 07/16/24 09:35 IMPRESSION: No acute airspace disease. Electronically signed by: Blue Chauhan MD 07/16/2024 09:47 AM EDT DS: Summary Hospital Course Hospital Course: per 07/15 admission note: HPI Narrative: pt tolerated only a brief interview with , where he signed CV and 3-day notice and initially agreed to restart his prior medications regimen, then recanted bcse he did not want to have blood draws. he denies any safety concerns. per CARE team wiliam, pt self-presented to [facility] ED with his mother due to erratic behaviors, delusions, and praising the high ups. pt reportedly has not taken his medication since discharge from [facility] 06/28/24. per CARE team wiliam, pt presented with intense eye contact, PMA of pacing, thought disorganization, and bizarre questions/statements such as go to the next level. per collateral from pt's mother, pt has not been sleeping. Past Psychiatric History: History of multiple inpatient psychiatric hospitalizations. Does not have outpatient psychiatric providers due to not following up with appointments. Denies history of SA/SIB. Medical Evaluation Reviewed: [facility] Medical History Schizoaffective disorder, bipolar type Anxiety Family History: affirms Social History: His father lives in [place] and has little to no contact with him. He grew up with his mother. Each of his parents have 3 other children from other relationships. He did finish high school and states that he is in college at [employer]. He has had no marriages no children. Substance History: none, per mother utox NEG Trauma History: denies Precis: 07/15: restart olanzapine 10 mg QHS. restart lithium but at higher dose of 600 BID due to low level at discharge last admission (0.51) with Rx of 450 BID. 07/16: cooperative, friendly, disorganized. states he feels fine now, no longer with CP or feeling feverish. agreeable to CXR. per staff, pt on 3-day notice. denies Sx. tox NEG. fever 102.5 last NOC. slept 4.5 hours. got tylenol, T100 now. continue zyprexa 10 mg QHS, continue lithium 600 BID. hospitalist consult for CP and fever to 102.5. keep NMS or 5-HT syndrome on DDx. 07/17: Dx with non-COVID coronavirus, high fever of last night being called into question by staff. discharging tomorrow. meds reviewed, reconciled, prescribed. 07/18: stable overnight. discharged as per plan. Time Spent with Patient Time attestation: Total time managing care of this patient today __35__ minutes. Time spent: Greater than 30 minutes Discharge Plan Discharge Anticipated Discharge Date/Time: 07/18/24 11:00 Patient Disposition: Home, Self-Care Discharge Diagnosis: Bipolar I Disorder, MRE Manic Referrals: Sanna Pompa ([facility]) [Other] - 07/19/24 11:00 am (telehealth appointment) Dr. Rubi ([facility]) [Other] - 07/23/24 2:00 pm (telehealth appointment. ) Karen Griggs MD [Primary Care Provider] - 1 Week Discharge Medications: New olanzapine 10 mg Tablet 20 mg PO BEDTIME 30 Days Qty: 60 0RF lithium carbonate 300 mg Tablet Extended Release 600 mg PO BID 30 Days Qty: 120 0RF Discontinued olanzapine 10 mg Tablet 10 mg PO BEDTIME 30 Days Qty: 30 0RF lithium carbonate 450 mg Tablet Extended Release 450 mg PO BID 30 Days Qty: 60 0RF Discharge Orders: Discharge Order (Routine); Ordered 07/18/24 Ordered By: Murali Zaragoza Diet: Advance to usual diet Activity on Discharge: As tolerated Stand Alone Forms: Patient Portal Discharge page, Community Support Print Language: Kiswahili Care Plan Goals: achieve stability in the outpatient treatment setting Health Concerns: none Plan of Treatment: take medications as prescribed, attend appointments as scheduled Assessment: not at imminent risk of harm to self or others Discharge Date/Time: 07/18/24 10:30
[2024-07-17 20:00] VITALS: BP 135/75; PULSE 78; RESP 16; TEMP 36.9; O2SAT 98
[2024-07-17] MEDS: OLANZapine 10 MG TABLET 20 MG PO (20:16)
[2024-07-18 07:00] VITALS: BMI 25.8
[2024-07-18 07:53] VITALS: BP 135/80; PULSE 71; RESP 16; TEMP 36.4; O2SAT 100
[2024-07-18] MEDS: Lithium Carbonate ER 300 MG TABLET.ER 600 MG PO (08:46)
== END 2024-07-18 10:30 | disposition home or self-care (01) | DRG 753 ==
LOC: HO.ED 16:44 → HO.PADLT16 07-15 12:24
PROVIDERS: Emergency Medicine; Physician Assistant; Admitting Provider Registered Nurse; Emergency Provider Emergency Medicine; PCP Internal Medicine; Visit Provider Psychiatry & Neurology Psychiatry
DX: F31.9 Bipolar disorder, unspecified (principal); B97.29 Other coronavirus as the cause of diseases classified elsewhere; Z20.822 Contact with and (suspected) exposure to COVID-19; Z79.899 Other long term (current) drug therapy
CPT/HCPCS: 0241U; 36415; 71045; 80053; 80061; 80178; 80307; 81003; 83605; 85025; 86308; 87633; 93005; 99285; S9485

== ENCOUNTER → 2024-07-15 08:50 | Outpatient (BNV) | payer OTHER, SELFPAY | PROVIDERS: Emergency Provider Emergency Medicine; PCP Internal Medicine; Visit Provider Internal Medicine Cardiovascular Disease | DX: Z13.6 Encounter for screening for cardiovascular disorders (principal) | CPT/HCPCS: 93010 ==

== ENCOUNTER 2024-07-15 12:23 | Outpatient (BNV) | payer OTHER, SELFPAY | END 2024-07-16 09:35 | PROVIDERS: Admitting Provider Registered Nurse; Emergency Provider Emergency Medicine; PCP Internal Medicine; Visit Provider Radiology Diagnostic Radiology | DX: R07.9 Chest pain, unspecified (principal) | CPT/HCPCS: 71045 ==

== ENCOUNTER → 2024-07-15 12:23 | Outpatient (BNV) | payer OTHER, SELFPAY | PROVIDERS: Admitting Provider Registered Nurse; Emergency Provider Emergency Medicine; PCP Internal Medicine; Visit Provider Physician Assistant | DX: B34.2 Coronavirus infection, unspecified (principal) | CPT/HCPCS: 99222 ==

== ENCOUNTER → 2024-07-15 12:23 | Outpatient (BNV) | payer OTHER, SELFPAY | PROVIDERS: Admitting Provider Registered Nurse; Emergency Provider Emergency Medicine; PCP Internal Medicine; Visit Provider Psychiatry & Neurology Psychiatry | DX: F31.9 Bipolar disorder, unspecified (principal) | CPT/HCPCS: 99232 ==

== ENCOUNTER 2024-08-04 03:56 | Emergency (ER) | payer OTHER, SELFPAY ==
[2024-08-04 03:59] VITALS: BP 130/82; PULSE 63; RESP 20; TEMP 37; O2SAT 98; BMI 26.6
--- NOTE | 2024-08-04 04:32 | PC.NURSE ---
Pt a&ox4, no signs of distress. Pt reports no back pain at this time, but hurts with movement Pts family at bedside Plan of care ongoing.
--- OUTSIDE RECORDS SUMMARY | 2024-08-04 04:48 | XMS_ITS | Encounter Summary ---
Author Organization [facility] Address [address] [place] [address] Phone Care Team Providers Care Orthotic/Prosthetic Clinician Name Role Phone Ab Hernandes MD Primary Care Provider [phone] Encounter Details Date Type Department Care Team (Late st Contact Info) Description 06/29/2010 Documentation [facility] Family Medicine [address] [place], [place] [id number] Family Medicine, Physician [address] [place] [address] Social History Tobacco Use Types Packs/Day Years [...] on filedocumented in this encounter Care Teams Orthotic/Prosthetic Clinician Relationship Specialty Start Date End Date Ab Hernandes MD [address] [place] [id number] PCP - General Pediatrics 05/24/19 10/12/22 documented as of this encounter
--- OUTSIDE RECORDS SUMMARY | 2024-08-04 04:48 | XMS_ITS | Clinical Summary ---
Author Organization [employer] Address [address] [place] [address] Care Team Providers Care Electroslag Welding Machine Operator Name Role Phone Unavailable Primary [...] patient's age to complete this topic Insurance [facility]
--- OUTSIDE RECORDS SUMMARY | 2024-08-04 04:48 | XMS_ITS | Encounter Summary ---
Author Organization [facility] Address [address] [place], [place] [id number] Phone Care Team Providers Care Deportation Officer Name Role Phone Ab Hernandes MD Primary Care Provider [phone] Encounter Details Date Type Department Care Team (Late st Contact Info) Description 08/01/2016 Documentation [facility] [place] [address] [place], [place] [phone] Family Medicine, Physician [address] [place] [address] Social History Tobacco Use Types Packs/Day Years [...] on filedocumented in this encounter Care Teams Deportation Officer Relationship Specialty Start Date End Date Ab Hernandes MD [address] [place] [id number] PCP - General Pediatrics 05/24/19 10/12/22 documented as of this encounter
--- NOTE | 2024-08-04 04:49 | ED.GENADULT ---
HPI - General Adult General Chief complaint: General Medical Stated complaint: middle back pain Time Seen by Provider: 08/04/24 04:49 Source: patient Mode of arrival: ambulatory Limitations: no limitations History of Present Illness ED Provider: HPI narrative: Patient's history of bipolar disorder not taking any medication complaining of pain in the right upper back after playing basketball 2 days ago increases on movements of the right arm no shortness a breath no cough no fever no direct trauma Related Data Previous Rx's ?Medication ?Instructions ?Recorded lithium carbonate 300 mg 600 mg (2 x 300 mg) PO BID 30 days 07/17/24 tablet,extended release #120 tabs olanzapine 10 mg tablet 20 mg (2 x 10 mg) PO BEDTIME 30 07/17/24 days #60 tabs cyclobenzaprine 10 mg tablet 10 mg PO Q8H #20 tabs 08/04/24 ibuprofen 600 mg tablet 600 mg PO Q6H PRN fever or pain 08/04/24 #30 tabs Allergies Allergy/AdvReac Type Severity Reaction Status Date / Time No Known Allergies Allergy Verified 08/04/24 04:02 Review of Systems Review of Systems: Yes all other systems are reviewed and are negative PMF Past Medical History Medical History Psychosis Schizoaffective disorder, bipolar type Anxiety Social History Social History Household Members: Family Household Members Other:: mother, brother and nephew Housing: Apartment Do you presently have visiting nurse or other home services: No Unable to assess alcohol history related to: Refusing to respond Alcohol intake: current Alcohol intake frequency: does not drink Patient Tobacco Use Status: Never used Tobacco Smoked in Last 30 Days: No e-Cigarette/Vaping Use: Never Used Second Hand Smoke Exposure: No Use of substances other than those prescribed or required for medical reasons: No Substance Use Type: Marijuana Advance Directives: No Advance Directives Information Provided: Yes service: No Sexual orientation: Straight/Heterosexual Physical Exam ED Vital Signs: Vital Signs - 24 hr 08/04/24 03:59 Temperature 98.6 F Pulse Rate 63 Respiratory Rate 20 Blood Pressure 130/82 Pulse Oximetry 98 Oxygen Delivery Method Room Air BMI result Body Mass Index 26.6 Appearance: Alert. Oriented X3. No acute distress. Eyes: PERRLA, No Nystagmus ENT: Pharynx normal. Oral Mucosa moist Neck: Normal inspection. Neck supple. CVS: Normal heart rate and rhythm. Pulses normal. Tenderness right upper back Respiratory: No respiratory distress. Equal air entry bilateral, no wheezing/rales/rhonchi Abdomen: Soft and nontender. Bowel sounds are present, no mass palpable, no CVA tenderness Skin: Skin warm and dry. Normal skin color. Normal skin turgor. Extremities: No lower extremity edema. No calf tenderness Neuro: Oriented X 3. No motor deficit. No sensory deficit.No cerebellar signs , cranial nerves II-XII intact Medications Administered Discontinued Medications Generic Name Dose Route Start Last Admin Trade Name Freq PRN Reason Stop Dose Admin Cyclobenzaprine HCl 10 mg 08/04/24 04:59 08/04/24 05:07 Cyclobenzaprine Hcl 10 Mg Tablet PO 08/04/24 05:00 10 mg ONCE ONE Administration Ibuprofen 600 mg 08/04/24 04:59 08/04/24 05:07 Ibuprofen 600 Mg Tablet PO 08/04/24 05:00 600 mg ONCE ONE Administration Medical Decision Making Lab Data Labs: Lab Results 08/04/24 Range/Units 04:23 Influenza Type A (PCR) NEGATIVE (Negative) Influenza Type B (PCR) NEGATIVE (Negative) RSV RNA Qual (PCR) NEGATIVE (Negative) SARS-CoV-2 RNA (RT-PCR) NEGATIVE (Negative) Discharge Plan Discharge Clinical Impression: Muscle strain of right upper back Patient Disposition: Home, Self-Care Instructions: Thoracic Back Strain (ED) Additional Instructions: Take ibuprofen and muscle relaxant as prescribed Follow with your PCP if not better Prescriptions: New cyclobenzaprine 10 mg tablet 10 mg PO Q8H Qty: 20 0RF ibuprofen 600 mg tablet 600 mg PO Q6H PRN (Reason: fever or pain) Qty: 30 0RF No Action olanzapine 10 mg Tablet 20 mg PO BEDTIME 30 Days Qty: 60 0RF lithium carbonate 300 mg Tablet Extended Release 600 mg PO BID 30 Days Qty: 120 0RF Print Language: Ghanaian
--- OUTSIDE RECORDS SUMMARY | 2024-08-04 04:49 | XMS_ITS | Clinical Summary ---
Author Organization [facility] ity Address [address] [place] [address] Care Team Providers Care Wealth Management Director Name Role Phone Unavailable Primary Care Provider [...] Male 3-dos e series) 09/05/2015 Meningococcal B Vaccine (1 o f 2 - Standard) 2016 DTaP,Tdap,and Td Vaccines (1 - Tdap) 09/05/2019 Hepatitis B Vaccines (1 of 3 - 19+ 3-dose series) 09/05/2019 Depression Screening 03/27/2022 HIV Screening 03/27/2022 Hepatitis C Screening 03/27/2022 Social Influencers of Health Screening 03/27/2022 COVID-19 Vaccine (1 - 2023-2 5 season) 2023 Influenza Vaccine (Season Ended) 2024 HIB Vaccines Aged Out No longer eligi [...]
--- OUTSIDE RECORDS SUMMARY | 2024-08-04 04:49 | XMS_ITS | Encounter Summary ---
Author Organization [facility] Address [address] [place] [address] Phone Care Team Providers Care Joggle Press Operator Name Role Phone Ab Hernandes MD Primary Care Provider [phone] Encounter Details Date Type Department Care Team (Late st Contact Info) Description 01/04/2017 Conversion Encounter [facility] [place] [address] [place] [address] Social History Tobacco Use Types Packs/Day Years [...] on filedocumented in this encounter Care Teams Joggle Press Operator Relationship Specialty Start Date End Date Ab Hernandes MD [address] [place] [address] PCP - General Pediatrics 05/24/19 10/12/22 documented as of this encounter
--- OUTSIDE RECORDS SUMMARY | 2024-08-04 04:49 | XMS_ITS | Clinical Summary ---
Author Organization [facility] Address [address] [place], [place] [phone] Phone Care Team Providers Care Postal Supervisor Name Role Phone Unavailable Primary Care Provider [...] DAYS 09/30/19 22 Active Fluocinolone Acetonide Scalp (Valentine-Smoothe/FS Scalp) 0.01 % oilIndications:Osito orrheic dermatitis of [...] Dr. Rubi - thru an agency in [place], also sees Tiff Wilkins, therapist. Hosp at [facility] in either dec or early Jan for a week Started on Olanzapine. No known follow up med visit per Nikhil Assessment & Plan (03/10/2021 9:39 AM EST): Hospitalized at [facility] late November for anxiety. Started on Olanxapine 20 mg QHS. This med has been helpful though Nikhil does not like the side effects. Pt says he is planning on weaning himself off. I advised against this and advised he call [facility] to ask about a medication follow up. 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 Procedure Name Priority Date/Time Associated Diagnosis Comments CHLAMYDIA AND GONORRHEA, AMPLIFIED Routine 05/11/2021 2:40 PM EST Special screening examination for chlamydial disease from Last 3 Months or Most Recently Relevant to Health Maintenance Results * Due to [place] [employer] law, this organization might not be sharing sensitive test results. * Chlamydia and Gonorrhoea, Amplified (05/11/2021 2:40 PM EST) Chlamydia Trachomatis, DNA Probe NEGATIVE (NEG) [facility] Comment: No Chlamydia Trachomatis RNA detected in this patient's sample ? (REFERENCE RANGE/NORMAL VALUE: NOT DETECTED) ? Note: This test uses extension edger- mediated amplification method to detect rRNA from C. Trachomatis URINE GC AMP PROBE NEGATIVE (NEG) [facility] Comment: No Neisseria Gonorrhoeae RNA detected in this patient's sample ? (REFERENCE RANGE/NORMAL VALUE: NOT DETECTED) ? NOTE: This test uses extension edger-mediated amplification method to detect rRNA from N.Gonorrhoeae. [...] without risk of sexual abuse. Consult the [facility] if needed. Contact phone number . Therapeutic failure or success cannot be determined with the Aptima Combo2 assay since nucleic acid may persist following appropriate antimicrobial therapy. The Centers for Disease Control and Prevention (CDC) recommends confirmatory retesting using culture or a different nucleic acid amplification test when positive results occur, if indicated. Testing performed or reported by [facility], a Service of [facility], [facility] [place] [address] Yaw Gomez MD, Pulp Drier [facility]# [id number] Urine (Urine) 05/11/2021 2:4 0 PM EST 05/11/2021 8:15 PM EST Ab Hernandes MD LAB MICROBIOLOGY - GENERAL ORDER ERIC Final Result [facility] from Last 3 Months or Most Recently Relevant to Health Maintenance Insurance [facility] NON PCC
--- OUTSIDE RECORDS SUMMARY | 2024-08-04 04:49 | XMS_ITS | Encounter Summary ---
Author Organization [facility] Address [address] [place] [address] Phone Care Team Providers Care Central Lab Technician Name Role Phone Ab Hernandes MD Primary Care Provider [phone] Reason for Visit * Reason Comments Med Refill Encounter Details Date Type Department Care Team (Late st Contact Info) Description 09/26/2018 Refill [facility] [place] [address] [place] [address] Ab Hernandes MD [address] [place] [address] Chronic seasonal allergic rhinitis due to pollen [...] pollen documented in this encounter Care Teams Central Lab Technician Relationship Specialty Start Date End Date Ab Hernandes MD [address] [facility] [place] [address] PCP - General Pediatrics 05/24/19 10/12/22 documented as of this encounter
--- OUTSIDE RECORDS SUMMARY | 2024-08-04 04:49 | XMS_ITS | Encounter Summary ---
Author Organization [facility] Address [address] [place] [address] Phone Care Team Providers Care Outsole Cementer Machine Name Role Phone Ab Hernandes MD Primary Care Provider [phone] Encounter Details Date Type Department Care Team (Late st Contact Info) Description 09/11/2013 Documentation [facility] [place] Family Medicine [address] [place], [place] [phone] Family Medicine, Physician [address] [place] [address] Social History Tobacco Use Types Packs/Day Years [...] on filedocumented in this encounter Care Teams Outsole Cementer Machine Relationship Specialty Start Date End Date Ab Hernandes MD [address] [place] [address] PCP - General Pediatrics 05/24/19 10/12/22 documented as of this encounter
--- OUTSIDE RECORDS SUMMARY | 2024-08-04 04:49 | XMS_ITS | Encounter Summary ---
Author Organization [facility] Address [address] [place], [place] [address] Phone Care Team Providers Care Farm Machinery Erector Name Role Phone Ab Hernandes MD Primary Care Provider [phone] Encounter Details Date Type Department Care Team (Late st Contact Info) Description 08/01/2016 Documentation [facility] [place] Family Medicine [address] [place], [place] [phone] Family Medicine, Physician [address] [place] [address] Social History Tobacco Use Types Packs/Day Years [...] on filedocumented in this encounter Care Teams Farm Machinery Erector Relationship Specialty Start Date End Date Ab Hernandes MD [address] [place] [id number] PCP - General Pediatrics 05/24/19 10/12/22 documented as of this encounter
[2024-08-04 05:04] LABS: Influenza A PCR NEGATIVE (Negative); Influenza B PCR NEGATIVE (Negative); Resp Syncy Virus RNA Qual PCR NEGATIVE (Negative); SARS COV2 PCR INHOUSE NEGATIVE (Negative)
[2024-08-04] MEDS: Ibuprofen 600 MG TABLET PO (05:07)
[2024-08-04] MEDS: Cyclobenzaprine HCl 10 MG TABLET PO (05:07)
--- NOTE | 2024-08-04 05:09 | PC.NURSE ---
Pt medicated per [facility] Plan of care ongoing.
[2024-08-04 05:38] VITALS: BP 130/82; PULSE 63; RESP 20; TEMP 37; O2SAT 98
== END 2024-08-04 05:40 | disposition home or self-care (01) ==
PROVIDERS: Emergency Provider Internal Medicine; PCP Internal Medicine
DX: S29.012A Strain of muscle and tendon of back wall of thorax, initial encounter (principal); X58.XXXA Exposure to other specified factors, initial encounter; Y93.67 Activity, basketball; Y92.9 Unspecified place or not applicable; Y99.9 Unspecified external cause status; M54.6 Pain in thoracic spine; Z03.818 Encounter for observation for suspected exposure to other biological agents ruled out
CPT/HCPCS: 0241U; 99283; 99284

== ENCOUNTER 2024-09-20 22:03 | Emergency (ER) | payer OTHER, SELFPAY ==
[2024-09-20 22:12] VITALS: BP 132/84; PULSE 67; O2SAT 98
[2024-09-20 22:17] VITALS: BP 128/87; PULSE 71; RESP 16; TEMP 36.8; O2SAT 98; BMI 20.1
[2024-09-20 22:19] VITALS: RESP 16
--- NOTE | 2024-09-20 22:27 | PC.NURSE ---
Patient reports he has not taken any medications since he was discharged from the inpatient floor back in june 2024. he endorses med non-compliance in the past. patient currently denies suicidal and homicidal ideation, just endorses increasing depression due to life stressors. When asked if recent life stressors have been increasing he responds aren't they always getting worse . Patient is calm and cooperative, aware of plan of care for medical clearance and CARE team evaluation
--- NOTE | 2024-09-20 22:51 | ED.PSYCH ---
HPI - Psych General Chief Complaint: Psychiatric Symptoms Stated Complaint: Depression Time Seen by Provider: 09/20/24 22:09 Source: patient and EMS Mode of arrival: EMS Limitations: no limitations History of Present Illness ED Provider: Chanell Moreno NP HPI Narrative: patient is a 24 old male who presents emergency department via EMS for evaluation. He has been endorsing increased depression. He reports that he called EMS on his own. When asked how long he has been feeling this way he does not provide any specific time. He denies any recent medication changes in fact he states he has not been taking any medications since the last time I was here in June . Denies suicidal or homicidal ideations. Denies recreational drug or alcohol usage. Denies auditory or visual hallucinations. He denies any physical complaints Related Data Previous Rx's ?Medication ?Instructions ?Recorded olanzapine 10 mg tablet 10 mg PO BEDTIME #30 tabs 09/21/24 Allergies Allergy/AdvReac Type Severity Reaction Status Date / Time No Known Allergies Allergy Verified 09/20/24 22:18 Review of Systems Review of Systems: Yes all other systems are reviewed and are negative [facility] Past Medical History Attestation statement: The following information was validated with the patient. Source: old records reviewed Medical History Psychosis Schizoaffective disorder, bipolar type Anxiety Social History Social History Household Members: Family Household Members Other:: mother, brother and nephew Housing: Apartment Do you presently have visiting nurse or other home services: No Unable to assess alcohol history related to: Refusing to respond Alcohol intake: current Alcohol intake frequency: does not drink Patient Tobacco Use Status: Never used Tobacco Smoked in Last 30 Days: No e-Cigarette/Vaping Use: Never Used Second Hand Smoke Exposure: No Use of substances other than those prescribed or required for medical reasons: No Substance Use Type: Marijuana Advance Directives: No Advance Directives Information Provided: No service: No Sexual orientation: Straight/Heterosexual Physical Exam Vital Signs: Vital Signs: Last Vital Signs Temp 97.2 F 09/21/24 15:02 Pulse 75 09/21/24 15:02 Resp 16 09/21/24 15:02 BP 143/88 H 09/21/24 15:02 Pulse Ox 100 05/31/25 15:02 O2 Del Method Room Air 09/21/24 15:02 BMI result Body Mass Index 20.1 Appearance: Alert.?Oriented to person, place and time. No acute distress.?Normal affect. Eyes: Pupils equal, round and reactive to light.? ENT: Pharynx normal.?? Neck: Normal inspection.? Neck supple.?? CVS: Heart sounds normal. Normal heart rate and rhythm.? Pulses normal.?? Respiratory: No respiratory distress.? Lung sounds clear to auscultation bilaterally?? Abdomen: Soft and non-tender. Normoactive bowel sounds. Skin: Skin warm and dry.? Normal skin color.? Extremities: No lower extremity edema.? Neuro: Moves all extremities spontaneously. Sensation intact bilaterally. CN II-XII intact. No focal neuro deficits. Ambulates with normal steady gait. Course Reevaluation(s) Reevaluation #1: patient was evaluated by care team. Deemed candidate for inpatient level of care, placed on section 12 Reevaluation #2: Time: 14: Date: 09/21/24 Provider: Jerrod Collazo MD Patient in physician observation for psychiatric evaluation.? No acute events reported overnight. No current complaints. VS stable.? Patient re-evaluated by the care team today. Care team evaluation today is somewhat more positive than the initial evaluation. Care team recommendation today is for the patient to have another dose of olanzapine this evening and re-evaluation on Monday. Care team clinician feels that if the patient still seems reasonably stable tomorrow that the patient might be appropriate for discharge. I have therefore ordered an evening dose of olanzapine. Will continue to monitor. Time: 14: Reevaluation #3: Dr. Collazo: The plan earlier this afternoon was for the patient to spend the night in the emergency room and be discharged tomorrow. At this point the patient is feeling considerably better and feels that he can be discharged. I think this is consistent with the initial care team evaluation. The patient is denying any suicidality or homicidality. I think the patient seems safe for discharge. He is requesting a prescription for olanzapine that he may use at bedtime to help him sleep. I have sent a prescription for 10 mg of olanzapine to be used at bedtime. Thirty tablets. He says that he has a therapist and is advised to follow up with his therapist. He does not have a PCP. He is given contact information for several local PCP offices. Time: 16:58 Medications Administered Discontinued Medications Generic Name Dose Route Start Last Admin Trade Name Alexa PRN Reason Stop Dose Admin Lorazepam 0.5 mg 09/20/24 23:32 09/20/24 23:36 Lorazepam 0.5 Mg Tablet PO 09/20/24 23:33 0.5 mg ONCE ONE Administration Olanzapine 10 mg 09/21/24 01:54 09/21/24 02:01 Olanzapine 10 Mg Tablet PO 09/21/24 01:55 10 mg ONCE ONE Administration Medical Decision Making Medical Decision Making [facility] Narrative: patient is a 24 old male with past medical history of schizoaffective disorder, bipolar disorder who presents emergency department via EMS with reports of depression as per HPI. Denies SI/HI. He has not been taking medications at least for a few months by his account. He offers no physical complaints in his physical examination is benign. He is calm and cooperative. will obtain serum labs for medical clearance and referred to care team for disposition planning Differential Diagnosis Differential Diagnoses: The differential diagnosis associated with the presentation includes (See narrative above and below for further detail) Admission/Observation Consideration of admission/observation: Escalation of care including admission/observation considered Patient is being observed in the Emergency Department for depression Observation time was started at 23:05 on 09/20/24.?The patient is currently stable and non-toxic appearing. Observation is being initiated in the Emergency Department to allow time to help differentiate if the patient's depression is due to Substance Induced Mood Disorder and Anxiety versus Major Depressive Disorder, Bipolar Maria Guadalupe, Bipolar Depression, and Schizophrenia. The patient will receive frequent psychiatric assessments from the provider as well as from nursing staff. The patient will also be monitored for the need of PRN agitation medications such as Haldol, Ativan, and Benadryl. Consult Healthcare Provider Management of the patient was discussed with: Behavioral Health Provider (CARE team) Lab Data [facility] Lab Attestation statement: I reviewed the patient's lab results. CBC is without leukocytosis anemia or thrombocytopenia. Electrolyte derangement. No YELENA. LFTs unremarkable. Urinalysis without evidence of infection or microscopic hematuria. Toxicology is unremarkable. Casselman level below detectable limits consistent with the story of non med compliance 09/20/24 22:51 09/20/24 22:51 Labs: Lab Results 09/20/24 09/20/24 09/20/24 Range/Units 22:49 22:50 22:51 WBC 8.4 (4.8-10.8) X10*3/uL RBC 5.32 (4.60-5.80) X10*6/uL Hgb 15.6 (14.0-18.0) g/dl Hct 45.2 (42.0-52.0) % MCV 85.0 (80.0-98.0) fL MCH 29.3 (27.0-33.0) pg MCHC 34.5 (31.0-36.0) g/dl RDW 13.0 (11.0-16.0) % Plt Count 248 (160-400) X10*3/uL MPV 10.5 (9.4-12.4) fL Immature Gran % (Auto) 0.2 (0.0-0.4) % Neut % (Auto) 56.3 (45-73) % Lymph % (Auto) 32.4 (20-40) % [place] % (Auto) 8.8 (2-11) % Eos % (Auto) 1.8 (0-4) % Baso % (Auto) 0.5 (0-2) % Lymph # (Auto) 2.7 (1.2-4.9) X10*3/uL [place] # (Auto) 0.7 (0.1-1.2) X10*3/uL Eos # (Auto) 0.2 (0.0-0.4) X10*3/uL Baso # (Auto) 0.0 (0.0-0.2) X10*3/uL Abs Immat Gran (auto) 0.02 (0.00-0.03) X10*3/uL Absolute Neuts (auto) 4.7 (2.0-8.3) x10*3/uL Absolute Nucleated RBC 0.000 (0.0-0.012) X10*3/uL Nucleated RBC % (auto) 0.0 (0.0-0.2) /100WBC Sodium 141 (135-145) mmol/L Potassium 4.0 (3.3-5.1) mmol/L Chloride 110 H (96-108) mmol/L Carbon Dioxide 25 (22-29) mmol/L Anion Gap 10 L (12-20) BUN 17 H (9-16) mg/dL Creatinine 1.30 (0.5-1.4) mg/dL Estim Creat Clear Calc 78.7 Estimated GFR > 60 Random Glucose 103 (60-115) mg/dL Calcium 8.9 (8.4-10.2) mg/dL Total Bilirubin 0.3 (0.0-1.0) mg/dL AST 24 (5-37) U/L ALT 24 (0-40) U/L Alkaline Phosphatase 88 (39-117) U/L Total Protein 7.9 (6.5-8.0) g/dL Albumin 4.3 (3.5-5.0) g/dL Urine Color Yellow Urine Appearance Turbid Urine pH 8.5 (5.0-9.0) Ur Specific [place] 1.025 (1.005-1.025) Urine Protein 30 (1+) H (Neg-Trace) mg/dL Urine Glucose (UA) Negative (Negative) mg/dL Urine Ketones Trace (Negative) mg/dL Urine Blood Negative (Negative) Urine Nitrite Negative (Negative) Ur Leukocyte Esterase Negative (Negative) Urine RBC 0-2 (0-2) /HPF Urine WBC 0-5 (0-5) /HPF Ur Squamous Epith Cells 0-2 (0-2) /HPF Urine Bacteria None Seen (None Seen) Hyaline Casts 0-2 (0-2) /LPF Salicylates < 5.0 L (15-30) mg/dL Urine Opiates Screen Not Detected (Not Detect) Ur Buprenorphine Scrn Not Detected (Not Detect) ng/mL Ur Oxycodone Screen Not Detected (Not Detect) ng/mL Urine Methadone Screen Not Detected (Not Detect) ng/mL Urine Fentanyl Screen Not Detected (Not Detect) Acetaminophen < 3 (<30) mcg/mL Ur Barbiturates Screen Not Detected (Not Detect) Ur Phencyclidine Scrn Not Detected (Not Detect) Ur Amphetamines Screen Not Detected (Not Detect) U Benzodiazepines Scrn Not Detected (Not Detect) Casselman < 0.10 L (0.60-1.20) mmol/L Urine Cocaine Screen Not Detected (Not Detect) U Marijuana (THC) Screen Not Detected (Not Detect) Ethyl Alcohol < 10 mg/dL External Record Review External record reviewed: Outpatient record Chronic Conditions Patient?s care impacted by: Other ( see narrative above) Discharge Plan Discharge Clinical Impression: Bipolar disorder Patient Disposition: Home, Self-Care Additional Instructions: I have sent a prescription for olanzapine which you may use at bedtime to help you sleep. This has been sent to your pharmacy. Please plan on following up with your therapist this week. Please also work on getting a primary care doctor. please see the contact information for a variety of PCP practices in [facility]. Perhaps you will be able to get an appointment at one of these practices. Please also follow through with any other recommendations made by the CARE team social media marketing manager. Return to the emergency room if you feel significantly worse. Prescriptions: New olanzapine 10 mg tablet 10 mg PO BEDTIME Qty: 30 0RF Referrals: [facility] [Provider Group] ( Needs PCP) [facility] [Provider Group] ( needs PCP) [facility]) [facility] Olga García MD [Physician] - Interventions: [place]-Suicide Risk Severity Scale Last Done: 09/20/24 22:20 Print Language: Kyrgyz
[2024-09-20 23:02] LABS: Appearance Urine Turbid; Color Urine Yellow; Glucose Urine UA Negative (Negative); Leukocyte Esterase Urine Negative (Negative); Nitrite Urine Negative (Negative); PH 8.5 (5.0-9.0); Specific Gravity - Urine 1.025 (1.005-1.025); UMIC TRIGGER UACC YES; Urine Blood Negative (Negative); Urine Ketones Trace mg/dL (Negative); Urine Protein 30 (1+) mg/dL (Neg-Trace)
[2024-09-20 23:05] LABS: Bacteria Urine None Seen (None Seen); Hyaline Casts Urine 0-2 /LPF (0-2); RBC Urine 0-2 /HPF (0-2); Squamous Epithelial Cell Urine 0-2 /HPF (0-2); WBC Urine 0-5 /HPF (0-5)
[2024-09-20 23:07] LABS: Lithium < 0.10 mmol/L (0.60-1.20)
[2024-09-20 23:07] LABS: Basophils Percent Auto 0.5 % (0-2); Eosinophils Absolute Auto 0.2 X10*3/uL (0.0-0.4); Eosinophils Percent Auto 1.8 % (0-4); Hematocrit 45.2 % (42.0-52.0); Hemoglobin 15.6 g/dl (14.0-18.0); Imm Gran Abs Auto 0.02 X10*3/uL (0.00-0.03); Imm Gran Pct Auto 0.2 % (0.0-0.4); Lymphocytes Absolute Auto 2.7 X10*3/uL (1.2-4.9); Lymphocytes Percent Auto 32.4 % (20-40); MANUAL DIFF FLAG NO; Mean Corpuscular HGB Conc 34.5 g/dl (31.0-36.0); Mean Corpuscular Hemoglobin 29.3 pg (27.0-33.0); Mean Platelet Volume 10.5 fL (9.4-12.4); Monocytes Absolute Auto 0.7 X10*3/uL (0.1-1.2); Monocytes Percent Auto 8.8 % (2-11); Neutrophils Absolute Auto 4.7 x10*3/uL (2.0-8.3); Neutrophils Percent Auto 56.3 % (45-73); PLT CLUMP 1; Red Blood Count 5.32 X10*6/uL (4.60-5.80); SCAN SMEAR FLAG 1; White Blood Count 8.4 X10*3/uL (4.8-10.8)
[2024-09-20 23:11] LABS: Amphetamine Screen Urine Not Detected (Not Detect); Barbiturates, Urine Not Detected (Not Detect); Benzodiazepines Screen Urine Not Detected (Not Detect); Buprenorphine Scr Not Detected (Not Detect); Cannabinoid Screen Urine Not Detected (Not Detect); Cocaine Screen Urine Not Detected (Not Detect); Fentanyl, urine Not Detected (Not Detect); Methadone Screen, Urine Not Detected (Not Detect); Opiate Screen Urine Not Detected (Not Detect); Oxycodone Screen Urine Not Detected (Not Detect); Phencyclidine Screen Urine Not Detected (Not Detect)
--- NOTE | 2024-09-20 23:11 | PC.NURSE ---
Report received and care assumed at 2300. Pt found awake and alert, ambulating freely throughout the pod. The pt offers no complaints at this time, asked staff about showering and advised that at this hour showers are not usually utilized and offered him warm wipes and/or wash clothe and soap to wash up. Pt declined as he reports that he wants to wash his hair. He took the news fine and was agreeable to waiting until after breakfast to take a shower and wash his hair. He remains calm and cooperative without distress noted at this time.
[2024-09-20 23:15] LABS: Alanine Aminotransferase 24 U/L (0-40); Albumin Level 4.3 g/dL (3.5-5.0); Alkaline Phosphatase 88 U/L (39-117); Anion Gap 10 (12-20); Aspartate Amino Transferase 24 U/L (5-37); Bilirubin Total 0.3 mg/dL (0.0-1.0); Blood Urea Nitrogen 17 mg/dL (9-16); Calcium 8.9 mg/dL (8.4-10.2); Carbon Dioxide 25 mmol/L (22-29); Chloride 110 mmol/L (96-108); Creatinine Clr Calc Pharmacy 78.7; Estimated Glomerular Filt Rate > 60; Ethanol < 10 mg/dL; Glucose Random 103 mg/dL (60-115); Sodium 141 mmol/L (135-145); Total Protein 7.9 g/dL (6.5-8.0)
[2024-09-20 23:17] LABS: Platelet Count 248 X10*3/uL (160-400)
[2024-09-20] MEDS: LORazepam 0.5 MG TABLET PO (23:36)
[2024-09-20 23:58] LABS: Acetaminophen LAB < 3 mcg/mL (<30); Salicylate < 5.0 mg/dL (15-30)
--- NOTE | 2024-09-21 01:31 | PC.NURSE ---
PT has been conversing freely with another patient in the common area. CARE team approached and received well, pt agreeable to conversation/assessment at this time. He was brought into his room for privacy, CARE Team assessment currently underway
[2024-09-21] MEDS: OLANZapine 10 MG TABLET PO (02:01)
--- NOTE | 2024-09-21 02:02 | PC.NURSE ---
Pt remains calm and cooperative and appropriate with staff. He offers no complaints however does report that he wishes he could sleep adding that he hasn't been having success with sleeping at home lately. SENIOR AUTOMATION ENGINEER Josh made aware and new orders obtained, pt willingly took PO medication with ease. He has already been evaluated by CARE team and is pending dispo.
[2024-09-21 06:52] VITALS: BP 127/76; PULSE 96; RESP 17; TEMP 36.9; O2SAT 100
--- NOTE | 2024-09-21 07:28 | PC.NURSE ---
patient awake/alert, ambulating on unit, rr equal/non labored, pt given warm blankets as he is cold, denies pain/discomfort, vss, plan of care ongoing.
[2024-09-21 15:02] VITALS: BP 143/88; PULSE 75; RESP 16; TEMP 36.2; O2SAT 100
--- NOTE | 2024-09-21 16:01 | PC.NURSE ---
olanzapine pt is asking if he can take the medication at 8pm, will pass along to lead technologist in cytogenetics nurse he is requesting it at that time.
--- NOTE | 2024-09-21 16:53 | MHC.CARE ---
Addendum entered by Jannette Stern LCSW 09/21/24 17:34: [facility] referral completed and faxed. [facility] confirms that referral was received and is activated. Original Note: CARE Team notified by POD RN that Pt was requesting to discharge. Case was discussed with the assessing clinician and ED provider Jerrod Peterson MD who agreed this was appropriate. Pt was agreeable to a referral for [facility] F/U.
--- NOTE | 2024-09-21 17:10 | PC.NURSE ---
pt asking to discharge today instead of tomm morning, care team notified as they had previously told this nurse that he was wanting to stay 1 more night and discharge in the AM tomm. They spoke with provider and patient is discharging home with family. pt called family who will pick [facility] up from the [facility].
[2024-09-21 17:12] VITALS: BP 138/78; PULSE 78; RESP 16; TEMP 36.7; O2SAT 100
== END 2024-09-21 17:13 | disposition home or self-care (01) ==
PROVIDERS: Emergency Medicine; Emergency Provider Emergency Medicine
DX: F31.9 Bipolar disorder, unspecified (principal); Z79.899 Other long term (current) drug therapy
CPT/HCPCS: 36415; 80053; 80143; 80178; 80179; 80307; 81001; 81003; 85025; 99285; S9485